=== PATIENT | male | born 1950 | race Caucasian/White ===

== ENCOUNTER 2018-12-29 13:42 | Emergency (ER) | payer MEDICARE, SELFPAY ==
[2018-12-29 13:43] VITALS: BP 132/90; PULSE 79; RESP 16; TEMP 36.9; O2SAT 99; BMI 27.1
--- NOTE | 2018-12-29 14:42 | ED.VIS.GEN ---
History of Present Illness Chief Complaint: Abscess Informant: Patient Onset: Days Context: Gradual Onset Narrative: Patient is a 69-jiue-[age]-year-old male with history of asthma, emphysema and COPD presenting with pain and swelling of his right neck. Patient states 10 months ago he had a small swelling that was painless on the right lateral neck. He was evaluated by his PCP who sent to dermatology. Dermatology did not worry about it. The past few days it began to worsen and become more painful. He notices redness over it. He stuck a needle in it last night and did have some pus come out. He states it was not much so. Patient denies any associated fever, chills, difficulty swallowing or breathing. He denies any other complaints at this time. He is worried that it would spread or get worse again in the emergency room. He denies any other complaints at this time. Past Medical History - Allergies and Home Meds Allergies/Adverse Reactions: Allergies ether Adverse Reaction (Verified 12/29/18 13:43) Nausea Primary Care Physician: NOT,DEFINED [NON-STAFF] - Past Medical History: - - Emphysema, COPD Surgical History: noncontributory Review of Systems General: Denies: Chills, Fever, Sweats Eyes: Denies: Visual changes - bilaterally, Diplopia ENT: Denies: Rhinorrhea, Sore throat Cardiovascular: Denies: Chest pain, Palpitations Respiratory: Denies: Dyspnea, Cough, Dyspnea on exertion Gastrointestinal: Denies: Abdominal pain, Nausea, Vomiting, Diarrhea, Melena, Hematochezia Genitourinary: Denies: Dysuria, Hematuria, Frequency Musculoskeletal: Reports: Neck pain - Right lateral. Denies: Back pain, Extremity Pain Skin: Reports: Abscess - Right lateral neck. Denies: Rash, Wounds Neurological: Denies: Headache, Weakness, Numbness Physical Exam Vital Signs/Narrative: Vital Signs Temp Pulse Resp BP Pulse Ox 12/29/18 13:43 98.5 F 79 16 132/90 H 99 Inital Vital Signs reviewed: Yes General: Well nourished, Well developed, No Acute Distress Head: Normocephalic, Atraumatic Eyes: Perrl, EOMI ENT: Moist mucous membranes, No rhinorrhea Neck: Supple, No lymphadenopathy, No JVD, - - Swelling and tenderness palpation over right lateral neck with overlying erythema and fluctuance, no crepitus Cardiovascular: Regular rate, Regular rhythm, No murmurs Respiratory: No distress, CTA bilaterally, Chest nontender Abdomen: Soft, Nontender, Nondistended, Normal bowel sounds Back: Nontender, Normal Inspection Extremities: Nontender, No edema Skin: - - 4 cm x 3 cm raised area of fluctuance with overlying erythema. There is no overlying scab from the patient apparently picked at it. It is quite tender to palpation. Well-demarcated edges. Neurological: Alert, Oriented x3, Cranial nerves II-XII grossly intact, Normal Strength, Normal Sensation Psychological: Normal affect, Normal Mood Diagnostic/Tx/Re-eval - Medical Decision Making Patient evaluated for pain and swelling over his right neck. Is consistent with an abscess versus infected sebaceous cyst. He does have overlying erythema and warmth. He will be started on antibiotics for this, Keflex. Incision and drainage performed. See procedure note. Patient does not have any other symptoms otherwise well-appearing. He is a good candidate for outpatient follow-up. Patient is counseled on signs and symptoms requiring return to the emergency room. Patient verbalizes agreement and understand this plan. Patient discharged home in stable and improved condition. Procedures Procedure(s): Drainage. Area anesthetized with 2 cc of 1% lidocaine without epinephrine. After adequate analgesia is achieved a #11 blade is used to make a 2 cm linear incision. Thick white substance as well as purulent substance is expressed. Hemostats used to open up any potential loculations. Area cleansed with saline and Hibiclens. Wound was left open with a pressure dressing on place. No immediate complications. Patient tolerated procedure well. ED Disposition - Plan for ED Patient: Disposition: Home or Assisted Living Diagnosis: Infected sebaceous cyst Instructions: SEBACEOUS CYST, Infected (I and D) Prescriptions: Cephalexin [Keflex] 500 mg PO Q6 #40 cap Prescription Printed Referrals: NOT,DEFINED [NON-STAFF] - Additional Instructions: Please follow-up with your cashier ticket selling or primary care doctor within the next few days for wound check. Apply warm compresses multiple times a day to encourage continued drainage. Return with any worsening symptoms such as fever, worsening redness or pain. You can alternate Tylenol and ibuprofen as needed for pain.
[2018-12-29] MEDS: Cephalexin 500 MG Capsule PO (15:02)
[2018-12-29 16:13] VITALS: RESP 18
== END 2018-12-29 16:15 | disposition home or self-care (01) ==
PROVIDERS: Emergency Provider Emergency Medicine
DX: L72.3 Sebaceous cyst (principal); L08.9 Local infection of the skin and subcutaneous tissue, unspecified; J43.9 Emphysema, unspecified
CPT/HCPCS: 10060; 99282

== ENCOUNTER 2019-07-23 16:50 | Inpatient (IN) | payer MEDICARE, MEDICAID, SELFPAY ==
[2019-07-23] VITALS (8 sets, daily range): BP systolic 110–167; BP diastolic 74–98; PULSE 78–95; RESP 15–20; TEMP 36.8–37.4; O2SAT 96–99; BMI 27.0; BMI 26.9
--- NOTE | 2019-07-23 17:24 | EKG12_ITS ---
Test Reason : Blood Pressure : / mmHG Vent. Rate : 083 BPM Atrial Rate : 083 BPM P-R Int : 138 ms QRS Dur : 076 ms QT Int : 368 ms P-R-T Axes : 043 039 048 degrees QTc Int : 432 ms Normal sinus rhythm Normal ECG Confirmed by MCKENNA ONTIVEROS, MAIKEL ([id number]), medical transcription editor DUC MÉNDEZ ([id number]) on 07/28/2019 1:56:18 PM Referred By: MATTHEW Confirmed By:JAMES ANDRES MD
--- NOTE | 2019-07-23 17:24 | RAD_ITS ---
STUDY: X-RAY CHEST REASON FOR EXAM: Male, 68 years old. PT STARTED CHEMO 2 WEEKS AGO FOR LUNG CA. 3 DAY TREATMENT. FEELING WEAK. YESTERDAY HAD CHILLS, NIGHT SWEATS AND DARK URINE TECHNIQUE: Single frontal view of the chest. COMPARISON: None. FINDINGS: There is a 5.1 x 3.2 cm round opacity within the right perihilar region. There is a left-sided Mediport in place terminating within the expected region of the superior vena cava. Normal size heart. Normal mediastinum and vitaliy. Normal visualized pulmonary arteries. Normal visualized aortic arch and descending thoracic aorta. Normal visualized thoracic spine. Normal visualized ribs, clavicles, and shoulders. There is no demonstrated abnormality of the visualized soft tissue structures of the upper abdomen. RAD/Chest 1 View (Portable) IMPRESSION: 5.1 x 3.2 cm rounded opacity within the right hilar region concerning for an underlying malignancy. Electronically Signed: Nellie Noguera MD at 19:18 EDT Tel , Service support ,
--- NOTE | 2019-07-23 17:31 | ED.DCSUM_ITS ---
- ER Visit Summary Date of Service: 07/23/19 Chief Complaint: Sick History of Present Illness: The patient is a 68 M with lung cancer that is treated by Dr. Larry Warren at [facility], [place]. He has had 3 chemotherapy treatments starting 2 weeks ago. He presents today with generalized fatigue, chills, sweats, cough, shortness of breath. Physical Examination: Afebrile and vital signs unremarkable. Alert and oriented. HEENT exam unremarkable. Heart regular. Lungs clear. Abdomen soft. Extremities nontender no edema. Skin appears normal. Test Results: EKG, labs, cultures, chest x-ray, COVID testing is pending Emergency Department Course and Treatment: Patient had COVID precautions. Placed on a monitor. Treated with IV fluids while awaiting results. EKG showed sinus rhythm at a rate of 83. Chest x-ray showed right hilar opacity concerning for malignancy consistent with his known cancer. He is neutropenic. Hemoglobin 12.1. Metabolic panel noted and unremarkable. Coags and liver panel unremarkable. Troponin normal. Lactate normal. COVID 19 testing is negative. Cultures pending. Urinalysis is still pending at the time of this dictation. Patient had neutropenia and was started on antibiotics. Given the patient's neutropenia and severe symptoms, fatigue, chills, I believe he should have inpatient therapy with IV antibiotics at this point. I will contact the hospitalist. Treatment Plan: As above Disposition: Admission Impression: Neutropenia, lung cancer, generalized fatigue This note was generated with [employer] dictation software. It may contain incorrect words, spelling, and punctuation that were not noted in review of the chart prior to signing ED Disposition - Plan for ED Patient: Referrals: [facility] Doctor,Out of [NON-STAFF] -
[2019-07-23 18:18] LABS: Absolute Lymphocyte Count 0.36 X10^3/uL (0.83-4.51); Absolute Neutrophil Count 0.1 X10^3/uL (2.0-7.7); Eosinophil# 0.03 X10^3/uL; Eosinophils% 4.1 % (0-5); Hematocrit 38.3 % (40-54); Hemoglobin 12.1 g/dL (13.0-16.5); Lymphocyte # 0.36 X10^3/ul (4.0); Lymphocyte % 49.3 % (19-41); Mean Corp Hgb Conc 31.6 g/dL (32-36); Mean Corpuscular Hgb 24.7 pg (27.0-32.0); Mean Corpuscular Volume 78.2 fL (80-94); Mean Platelet Vol. 11.3 fl (6.2-12.0); Monocyte# 0.25 X10^3/uL; Monocyte% 34.2 % (0-10); NRBC Flagged by Analyzer 0 % (0-5); Neutrophil # 0.08 X10^3/uL (2.7-7.7); POSITIVE COUNT YES; POSITIVE DIFFERENTIAL YES; POSITIVE MORPHOLOGY YES; Platelet Count 160 K/mm3 (150-450); RBC Distribution Width CV 14.6 % (11.6-14.6); RBC Distribution Width SD 39.7 fl (35.1-43.9)
[2019-07-23 18:23] LABS: Differential Indicated SCAN CRITERIA MET; White Blood Count 0.7 K/mm3 (4.4-11.0)
[2019-07-23 18:32] LABS: International Normalized Ratio 1.1; Partial Thromboplast Time 29.9 Seconds (24.1-36.2); Prothrombin Time (Protime)PT. 14.1 SECONDS (11.7-14.9)
[2019-07-23 18:43] LABS: ALB/GLOB Ratio 0.7 RATIO (0.9-2.4); AST(SGOT) 25 U/L (15-37); Alanine Aminotransfer ALT/SGPT 37 U/L (16-61); Alkaline Phosphatase 61 U/L (45-117); Anion Gap 10 (5-15); BUN 19 mg/dL (7-18); Calcium,Total 8.5 mg/dL (8.5-10.1); Chloride 97 mmol/L (98-107); Creatinine, Serum 1.19 mg/dL (0.70-1.30); EST Glomerular Filtration Rate 65 mL/min (>60); Est Glom Filt Rate - Afr Amer 79 mL/min (>60); Estimated Creatinine Clearance 61.06 ml/min; Globulin 4.3 g/dL (2.2-4.2); Glucose 146 mg/dL (74-106); Lactic Acid 0.9 mmol/L (0.4-1.9); Potassium 3.3 mmol/L (3.5-5.1); Protein, Total 7.3 g/dL (6.4-8.2); Sodium Level 133 mmol/L (136-145)
[2019-07-23 19:06] LABS: Platelet Estimate ADEQUATE (ADEQ); Red Cell Morphology NORM C+C NORMAL (NORM C&C)
--- NOTE | 2019-07-23 20:30 | HP.PCM_ITS ---
Problem List (1) Neutropenia Status: Acute History of Present Illness Date of Admission: 07/23/19 Chief Complaint: sore throat The patient is a 68 year old M with a significant history of COPD; and perihilar lung cancer who had 3 rounds of chemo therapy about 2 weeks ago presenting with sore throat. Associated with his symptoms is malaise; diaphoresis; headache; dark orange urine; chills and rigors. Further he had anorexia and dysgeusia. He denies any shortness of breath. He associates his sore throat with using Flonase and not flushing his sinuses. He did not check his temperature at home. However he thinks that that he had a fever because he was sweating. At emergency department he was found to have severe neutropenia. Past Medical History Medical History: Medical History (Last Reviewed 07/24/19 @ 01:[address] Jerrell Chen MD) Asthma J45.909 COPD (chronic obstructive pulmonary disease) J44.9 Allergies ether Adverse Reaction (Verified 07/23/19 16:55) Nausea Home Medications: Ambulatory Orders Medication Instructions Recorded Albuterol Sulfate [Albuterol 1 - 2 puff IH Q4H PRN PRN 07/23/19 Sulfate HFA] Budesonide/Formoterol Fumarate 1 puff IH DAILY 07/23/19 [Symbicort 80-4.5 Mcg Inhaler] Escitalopram Oxalate [Lexapro] 10 mg PO DAILY 07/23/19 Fluticasone 0.05% [Flonase Nasal 2 spray NASAL DAILY PRN PRN 07/23/19 [place]] Hydrochlorothiazide [Hctz] 25 mg PO DAILY 07/23/19 Loratadine 10 mg PO DAILY 07/23/19 Montelukast Sodium [Singulair] 10 mg PO DAILY 07/23/19 Naproxen Sodium [Aleve] 440 mg PO DAILY PRN PRN 07/23/19 [place]-3/Dha/Epa/Fish Oil [Cvs Fish 1 ea PO DAILY 07/23/19 Oil 1,000 mg Softgel] Potassium Chloride [Klor-Con M10] 10 meq PO DAILY 07/23/19 Tiotropium [place] [Spiriva 1 puff IH DAILY 07/23/19 Respimat] Surgical History: - - Port placement; lung biopsy Lives: Alone Smoking Status: Former smoker Tobacco Use: Cigarettes - *Family History Maternal History Items: Renal Disease Paternal History Items: Heart Disease Review of Systems Constitutional: Reports: Chills. Denies: Fever, Weight Change HEENT: Reports: Head Aches, Sore Throat Cardiovascular: Denies: Chest Pain, Palpitations Respiratory: Denies: Cough, Shortness of breath at rest, Sputum production Gastrointestinal: Reports: Nausea. Denies: Abdominal Pain, Vomiting Genitourinary: Reports: Frequency - Decreased urinary frequency. Denies: Dysuria Musculoskeletal: Denies: Joint Pain, Joint Tenderness Skin: Denies: Rash, Wounds Neurological: Denies: Numbness, Tingling, Focal weakness Psychiatric: Denies: Anxiety, Depression, Homicidal Ideations, Suicidal Ideations Hematologic/ Lymphatic: Denies: Easy Bruising, Easy Bleeding VTE Information - Inpt Only VTE Present on Admission: No VTE Mechan Device Prophylaxis: None VTE Pharm Prophylaxis ordered?: Yes Patient Problems: Active and Suspected Problems (Last Reviewed 07/24/19 @ 01:[address] Jerrell Chen MD) Neutropenia (Acute) - Physical Exam Vitals/I&O's: Vital Signs Temp Pulse Resp BP Pulse Ox 98.8 F 82 18 142/86 H 96 07/23/19 19:35 07/23/19 19:35 07/23/19 19:35 07/23/19 19:35 07/23/19 19:35 Oxygen Delivery Method Room Air Weight: 83.007 kg Body Mass Index (BMI) 27.0 Intake and Output for Last 24 Hours 07/21/19 07/22/19 07/23/19 23:59 23:59 23:59 Intake Total 600 / 600 Balance 600 / 600 General: Alert, Oriented x3, Cooperative HEENT: Atraumatic, PERRLA, EOMI, Normocephalic Neck: Supple, No JVD, Negative Carotid Bruits Lungs: Clear to auscultation, Normal air movement, - - Port-A-Cath in left upper chest Cardiovascular: Regular rate, Normal S1, Normal S2, No murmurs Abdomen: Bowel Sounds Present, Soft, Non Tender Extremities: No edema, Capillary Refill Less than 3 Seconds Skin: No rashes, No breakdown Musculoskeletal: No Tenderness to Palpation of Joints or Extremities Neurological: Cranial nerves II-XII grossly intact Psych/Mental Status: Normal Affect, Appropriate Laboratory Results 07/23/19 18:00: COVID-19 (CATHY) Not Detected 07/23/19 18:06: WBC 0.7 L*, RBC 4.90, Hgb 12.1 L, Hct 38.3 L, MCV 78.2 L, MCH 24.7 L, MCHC 31.6 L, RDW Std Deviation 39.7, RDW Coeff of [place] 14.6, Plt Count 160, MPV 11.3, Immature Gran % (Auto) 1.400 H, Neut % (Auto) 11.0 L, Lymph % (Auto) 49.3 H, [place] % (Auto) 34.2 H, Eos % (Auto) 4.1, Baso % (Auto) 0.0, Absolute Neuts (auto) 0.1 L, Absolute Lymphs (auto) 0.36 L, Nucleated RBC % 0, Differential Comment , Diff Path Review June, Platelet Estimate ADEQUATE, RBC Morphology NORM C+C 07/23/19 18:06: PT 14.1, INR 1.1, APTT 29.9 07/23/19 18:06: Sodium 133 L, Potassium 3.3 L, Chloride 97 L, Carbon Dioxide 26.0, Anion Gap 10, BUN 19 H, Creatinine 1.19, Estim Creat Clear Calc 61.06, Est GFR (MDRD) Af Amer 79, Est GFR (MDRD) Non-Af 65, BUN/Creatinine Ratio 16.0, Glucose 146 H, Calcium 8.5, Total Bilirubin 0.70, AST 25, ALT 37, Alkaline Phosphatase 61, Troponin I < 0.015, Total Protein 7.3, Albumin 3.0 L, Globulin 4.3 H, Albumin/Globulin Ratio 0.7 L 07/23/19 18:06: Lactic Acid 0.9 Current Medications Vancomycin HCl 1,250 mg/ (Sodium Chloride) 275 mls @ 167 mls/hr IV X1 ONE Stop: 07/23/19 21:08 Last Admin: 07/23/19 20:29 Dose: 167 mls/hr Documented by: Assessment/Plan All Active Problems (Last Reviewed 07/24/19 @ 01:[address] Jerrell Chen MD) Neutropenia (Acute) The patient is a 68 year old M with a significant history former tobacco abuse; perihilar lung cancer who had 3 rounds of chemo therapy about 2 weeks ago presenting with sore throat; malaise; diaphoresis; headache; dark orange urine; chills and rigors was found to have neutropenia. Neutropenia No objective fever. In the setting of cancer diagnosis on chemotherapy patient was given vancomycin and Zosyn at emergency department. Actual chest x-ray independent review does not any infiltrates. Noted right hilar mass. Of note patient ciara-cath does not look infected and probably Zosyn alone is sufficient. However, will continue patient on vancomycin and Zosyn while we wait for blood cultures obtained at emergency department. Also urine culture was ordered at emergency department. Patient is yet to produce urine.. In setting of COVID pandemic will admit patient to COVID cohort floor and will consult mud grinder. Covid test at emergency department was negative and patient's appears to be a low risk in regards his symptoms. Respiratory pathogen panel ordered Placed on covid precautions. When off covid precautions consider neutropenic precautions. Lung Cancer Patient follows up at [facility]. Continue outpatient follow up. Hyponatremia Likely RK from lung cancer. Also this could be due to use of HCTZ. Mild. Trend Hypokalemia Review of emergency department labs shows potassium of 3.3. Replace. Trend BMP. HTN On presentation blood pressure was not within goal HCTZ continue. Trend blood pressure and adjust blood pressure medications. COPD and Asthma Stable Home inhalers continued. Claritin and montelukast continued. DVT Prophylaxis Subcutaneous Lovenox. Inpatient E&M: 61952 Init Hosp L3
[2019-07-23 23:12] LABS: Mucous, Urine 0 SEEN /hpf (<or=2+)
[2019-07-23 23:26] LABS: Glucose, Dipstick Normal (Normal); Ketone-Dipstick 5 mg/dl (Negative); Leukocyte Esterase-Dipstick Negative /ul (Negative); Nitrite-Dipstick Negative (Negative); Occult Blood-Urine 10 /ul (Negative); Protein-Dipstick 100 mg/dl (Negative); Urine Bilirubin Dipstick Negative (Negative); Urine Urobilinogen 4 mg/dl (Normal)
[2019-07-23 23:33] LABS: Color, Urine Yellow (Yellow); Urine Clarity Sl Cldy (Clear)
[2019-07-23 23:34] LABS: Bacteria 1+ /hpf (None Seen); Red Blood Cells-Urine 10-25 SEEN /hpf (0-5); Squamous Epithelial Cells - UA 0-5 SEEN /hpf (0-5); White Blood Cells 0-5 SEEN /hpf (0-5)
[2019-07-24] VITALS (12 sets, daily range): BP systolic 108–161; BP diastolic 65–74; PULSE 67–86; RESP 16–22; TEMP 36.7–37; O2SAT 95–99
--- NOTE | 2019-07-24 00:20 | PCM.RX.CS ---
Consult Pharmacy has been consulted to manage selected antiobiotic: Vancomycin Type of Consult: New start Suspected Infection: Other Prior Doses of Antibiotics Received/Current Regimen: Medications Vancomycin HCl (Vancomycin) 1,000 mg in 200 mls @ 200 mls/hr IV Q12H IVANIA Discontinued Medications Vancomycin HCl 1,250 mg/ (Sodium Chloride) 275 mls @ 167 mls/hr IV X1 ONE Stop: 07/23/19 21:08 Last Admin: 07/23/19 22:53 Dose: Infused Labs: Sodium 133 mmol/L (136-145) L 07/23/19 18:06 Potassium 3.3 mmol/L (3.5-5.1) L 07/23/19 18:06 Chloride 97 mmol/L (98-107) L 07/23/19 18:06 Carbon Dioxide 26.0 mmol/L (21.0-32.0) 07/23/19 18:06 Anion Gap 10 (5-15) 07/23/19 18:06 BUN 19 mg/dL (7-18) H 07/23/19 18:06 Creatinine 1.19 mg/dL (0.70-1.30) 07/23/19 18:06 Est GFR (MDRD) Af Amer 79 mL/min (>60) 07/23/19 18:06 Est GFR (MDRD) Non-Af 65 mL/min (>60) 07/23/19 18:06 BUN/Creatinine Ratio 16.0 RATIO (10-20) 07/23/19 18:06 Glucose 146 mg/dL (74-106) H 07/23/19 18:06 Weight used for dosin.7 kg Estimated Creatinine Clearance: 61 Goal Trough: 15-20 mcg/mL Pharmacy Plan for Drug Dosing: Pharmacy Service will continue to monitor and adjust dosing as required. Follow-Up Labs: Trough Vancomycin Labs to be done on [date and time ordered]: 07/25/19 @0800
[2019-07-24 03:44] LABS: Absolute Lymphocyte Count 0.43 X10^3/uL (0.83-4.51); Absolute Neutrophil Count 0.1 X10^3/uL (2.0-7.7); Basophil# 0.01 X10^3/uL; Basophil% 1.3 % (0-1); Eosinophil# 0.03 X10^3/uL; Eosinophils% 3.8 % (0-5); Hematocrit 34.3 % (40-54); Lymphocyte # 0.43 X10^3/ul (4.0); Lymphocyte % 54.4 % (19-41); Mean Corp Hgb Conc 32.1 g/dL (32-36); Mean Corpuscular Hgb 24.8 pg (27.0-32.0); Mean Corpuscular Volume 77.3 fL (80-94); Mean Platelet Vol. 10.5 fl (6.2-12.0); Monocyte# 0.26 X10^3/uL; Monocyte% 32.9 % (0-10); NRBC Flagged by Analyzer 0 % (0-5); Neutrophil # 0.05 X10^3/uL (2.7-7.7); Neutrophil % 6.3 % (47-70); POSITIVE COUNT YES; POSITIVE DIFFERENTIAL YES; POSITIVE MORPHOLOGY YES; Platelet Count 156 K/mm3 (150-450); RBC Distribution Width CV 14.7 % (11.6-14.6); RBC Distribution Width SD 39.5 fl (35.1-43.9); Red Blood Count 4.44 M/mm3 (4.6-6.2)
[2019-07-24 03:47] LABS: Differential Indicated SCAN CRITERIA MET; White Blood Count 0.8 K/mm3 (4.4-11.0)
[2019-07-24 03:58] LABS: Anion Gap 9 (5-15); BUN 18 mg/dL (7-18); BUN/Creat Ratio 13.8 RATIO (10-20); Calcium,Total 7.8 mg/dL (8.5-10.1); Chloride 100 mmol/L (98-107); EST Glomerular Filtration Rate 59 mL/min (>60); Est Glom Filt Rate - Afr Amer 71 mL/min (>60); Glucose 138 mg/dL (74-106); Potassium 3.9 mmol/L (3.5-5.1); Sodium Level 135 mmol/L (136-145)
[2019-07-24 04:04] LABS: Atypical Lymphocyte 1+ %; Differential Comment SCANNED
[2019-07-24] MEDS: 0.9% Saline Lock 10 ML Syringe IV (05:03)
[2019-07-24] MEDS: Budesonide Respules 0.5 MG/2 ML AMPUL.NEB. INHALATION (07:22)
[2019-07-24] MEDS: Ipratropium/Albuterol Sulfate 3 ML AMPUL.NEB INHALATION ×2 (07:22→13:20)
--- NOTE | 2019-07-24 07:23 | PCM.CONS.PUL ---
Problem List (1) Lung cancer Status: Acute Qualifiers: Laterality: right Lung location: hilum of lung Qualified Code(s): C34.01 - Malignant neoplasm of right main bronchus (2) COPD (chronic obstructive pulmonary disease) Status: Chronic Qualifiers: COPD type: emphysema Emphysema type: centrilobular Qualified Code(s): J43.2 - Centrilobular emphysema (3) Asthma Status: Chronic Qualifiers: Asthma severity: moderate Asthma persistence: persistent Asthma complication type: uncomplicated Qualified Code(s): J45.40 - Moderate persistent asthma, uncomplicated (4) Seasonal allergic rhinitis Status: Chronic Qualifiers: Allergic rhinitis trigger: pollen Qualified Code(s): J30.1 - Allergic rhinitis due to pollen (5) Neutropenia Status: Acute Qualifiers: Neutropenia type: secondary to cancer chemotherapy Qualified Code(s): D70.1 - Agranulocytosis secondary to cancer chemotherapy; T45.1X5A - Adverse effect of antineoplastic and immunosuppressive drugs, initial encounter Reason for Consult Date of Consultation: 07/24/19 Reason for Consultation: COPD History of Present Illness: The patient is a 68 year old M, with past medical history listed below, who presented [facility] on 07/23/2019 secondary to generalized fatigue, chills, sweats, cough and shortness of breath. Patient reportedly has a lifetime history of asthma and COPD for 10 years that was recently diagnosed with right hilar lung cancer. Patient states he had chemotherapy 2 weeks ago and is supposed to have another bout of chemotherapy next week. Patient lives in [place], but had lived in [place] for 20 years, so is currently receiving therapy at [facility]. In the ER, patient was noted to be in sinus rhythm at 83 bpm and chest x-ray showed a right hilar opacity without associated infiltrate. Patient was neutropenic, but metabolic panel, coags and liver panel were unremarkable. Lactate was within normal limits. Patient reportedly had a negative COVID-19 test. Urinalysis was unremarkable, but given patient's reported fever and neutropenia, patient was admitted to the hospital for empiric antibiotics. Patient is currently in COVID precautions, but states that he has not been out of the house outside of going to the grocery store. Patient lives alone. Patient has had some malaise, diaphoresis, darker urine, chills and rigors. Patient has reported worsening sore throat that he believes is secondary to his Flonase. Patient has been told for the last 10 years that he has COPD and is currently on triple therapy. Patient is unaware of the type of lung cancer or the severity of his COPD. Patient states this is his first round of chemotherapy, so I do not know what to expect. Patient does not report any COVID exposures. Patient has been using a facemask when going to the grocery store. Patient does not believe his cough is significantly changed from its baseline and he continues to produce intermittent clear to white sputum. Patient denies any chest pain, hemoptysis or lower extremity edema. No rashes of been reported. Review of systems otherwise negative from a constitutional, HEENT, respiratory, cardiovascular, GI, genitourinary, musculoskeletal, skin, neurologic, psychiatric and hematologic system unless stated above. Past Medical History Past Medical History (Chronic Problems): Chronic Problems (Last Reviewed 07/24/19 @ 01:[address] Jerrell Chen MD) COPD (chronic obstructive pulmonary disease) (Chronic) Asthma (Chronic) Seasonal allergic rhinitis (Chronic) Medical History: Medical History (Last Reviewed 07/24/19 @ 01:[address] Jerrell Chen MD) Asthma J45.909 COPD (chronic obstructive pulmonary disease) J44.9 Allergies ether Adverse Reaction (Verified 07/23/19 16:55) Nausea Home Medications: Ambulatory Orders Medication Instructions Recorded Albuterol Sulfate [Albuterol 1 - 2 puff IH Q4H PRN PRN 07/23/19 Sulfate HFA] Budesonide/Formoterol Fumarate 1 puff IH DAILY 07/23/19 [Symbicort 80-4.5 Mcg Inhaler] Escitalopram Oxalate [Lexapro] 10 mg PO DAILY 07/23/19 Fluticasone 0.05% [Flonase Nasal 2 spray NASAL DAILY PRN PRN 07/23/19 [place]] Hydrochlorothiazide [Hctz] 25 mg PO DAILY 07/23/19 Loratadine 10 mg PO DAILY 07/23/19 Montelukast Sodium [Singulair] 10 mg PO DAILY 07/23/19 Naproxen Sodium [Aleve] 440 mg PO DAILY PRN PRN 07/23/19 [place]-3/Dha/Epa/Fish Oil [Cvs Fish 1 ea PO DAILY 06/10/20 Oil 1,000 mg Softgel] Potassium Chloride [Klor-Con M10] 10 meq PO DAILY 07/23/19 Tiotropium [place] [Spiriva 1 puff IH DAILY 07/23/19 Respimat] Surgical History: - - Port placement; lung biopsy Lives: Alone Smoking Status: Former smoker Tobacco Use: Cigarettes - *Family History Maternal History Items: Renal Disease Paternal History Items: Heart Disease Review of Systems Comment: See HPI Patient Problems: Active and Suspected Problems (Last Reviewed 07/24/19 @ 01:[address] Jerrell Chen MD) Neutropenia (Acute) Lung cancer (Acute) Objective: Chest x-ray was personally reviewed. This does show a right hilar mass, but no associated infiltrates. No pulmonary function test or echocardiograms are available for review. - Physical Exam Vitals/I&O's: Vital Signs Temp Pulse Resp BP Pulse Ox 36.9 C 74 18 161/71 H 99 07/24/19 03:35 07/24/19 03:35 07/24/19 03:35 07/24/19 03:35 07/24/19 03:35 Oxygen Delivery Method Room Air Weight: 82.7 kg Body Mass Index (BMI) 26.9 Intake and Output for Last 24 Hours 07/22/19 07/23/19 07/24/19 23:59 23:59 23:59 Intake Total 1250 / 1250 650 / 650 Output Total 200 / 200 Balance 1050 / 1050 650 / 650 General: Alert, Oriented x3, Cooperative, No apparent distress, Well developed, Well nourished, - - Speaking in full sentences. HEENT: Atraumatic, PERRLA, EOMI, Normocephalic, - - No scleral icterus or injection noted Oral: Moist Mucosa, No Gingival or Mucosal Lesions/ Ulcerations Neck: Supple, No JVD, No Nodes, Trachea Midline Lungs: No rhonchi, No wheeze, No rales, Diminished, - - Symmetric expansion. No dullness to percussion. Cardiovascular: Regular rate, Regular Rhythm, Normal S1, Normal S2, No murmurs, No rub noted, No Gallop Abdomen: Bowel Sounds Present, Soft, Non Tender, Non-Distended Extremities: No clubbing, No cyanosis, No edema, Capillary Refill Less than 3 Seconds Skin: No rashes, No breakdown Musculoskeletal: No Tenderness to Palpation of Joints or Extremities Lymphatic: No Cervical, Supraclavicular, or Inguinal Adenopathy Neurological: Cranial nerves II-XII grossly intact, Neuro grossly intact, Motor Exam 5/5 strength throughout Psych/Mental Status: Alert and oriented to time, place, person, mood and affect Microbiology Past 72 Hours 07/24/19 02:20 Mucosa - Nasopharyngeal Respiratory Panel (PCR) - Final Laboratory Results 07/23/19 18:00: COVID-19 (CATHY) Not Detected 07/23/19 18:06: WBC 0.7 L*, RBC 4.90, Hgb 12.1 L, Hct 38.3 L, MCV 78.2 L, MCH 24.7 L, MCHC 31.6 L, RDW Std Deviation 39.7, RDW Coeff of Hebert 14.6, Plt Count 160, MPV 11.3, Immature Gran % (Auto) 1.400 H, Neut % (Auto) 11.0 L, Lymph % (Auto) 49.3 H, [place] % (Auto) 34.2 H, Eos % (Auto) 4.1, Baso % (Auto) 0.0, Absolute Neuts (auto) 0.1 L, Absolute Lymphs (auto) 0.36 L, Nucleated RBC % 0, Differential Comment , Diff Path Review June, Platelet Estimate ADEQUATE, RBC Morphology NORM C+C 07/23/19 18:06: PT 14.1, INR 1.1, APTT 29.9 07/23/19 18:06: Sodium 133 L, Potassium 3.3 L, Chloride 97 L, Carbon Dioxide 26.0, Anion Gap 10, BUN 19 H, Creatinine 1.19, Estim Creat Clear Calc 61.06, Est GFR (MDRD) Af Amer 79, Est GFR (MDRD) Non-Af 65, BUN/Creatinine Ratio 16.0, Glucose 146 H, Calcium 8.5, Total Bilirubin 0.70, AST 25, ALT 37, Alkaline Phosphatase 61, Troponin I < 0.015, Total Protein 7.3, Albumin 3.0 L, Globulin 4.3 H, Albumin/Globulin Ratio 0.7 L 07/23/19 18:06: Lactic Acid 0.9 07/23/19 22:57: Urine Color Yellow, Urine Clarity Sl Cldy, Urine pH 5.0, Ur Specific [place] 1.020, Urine Protein 100 H, Urine Glucose (UA) Normal, Urine Ketones 5 H, Urine Occult Blood 10 H, Urine Nitrite Negative, Urine Bilirubin Negative, Urine Urobilinogen 4 H, Ur Leukocyte Esterase Negative, Urine RBC 10-25 SEEN, Urine WBC 0-5 SEEN, Ur Squamous Epith Cells 0-5 SEEN, Urine Bacteria 1+, Urine Mucus 0 SEEN 07/24/19 03:30: Sodium 135 L, Potassium 3.9, Chloride 100, Carbon Dioxide 26.0, Anion Gap 9, BUN 18, Creatinine 1.30, Estim Creat Clear Calc 55.90, Est GFR (MDRD) Af Amer 71, Est GFR (MDRD) Non-Af 59 L, BUN/Creatinine Ratio 13.8, Glucose 138 H, Calcium 7.8 L 07/24/19 03:30: WBC 0.8 L*, RBC 4.44 L, Hgb 11.0 L, Hct 34.3 L, MCV 77.3 L, MCH 24.8 L, MCHC 32.1, RDW Std Deviation 39.5, RDW Coeff of Hebert 14.7 H, Plt Count 156, MPV 10.5, Immature Gran % (Auto) 1.300 H, Neut % (Auto) 6.3 L, Lymph % (Auto) 54.4 H, [place] % (Auto) 32.9 H, Eos % (Auto) 3.8, Baso % (Auto) 1.3 H, Absolute Neuts (auto) 0.1 L, Absolute Lymphs (auto) 0.43 L, Nucleated RBC % 0, Differential Comment SCANNED, Diff Path Review June foll, Atypical Lymphocytes 1+ Current Medications Acetaminophen (Tylenol) 650 mg PO Q6H PRN PRN PRN Reason: Pain Score 1-10/Temp > 100.7 F Albuterol Sulfate (Ventolin Aerosols) 2.5 mg INHALATION Q2H PRN PRN PRN Reason: SOB &/OR WHEEZING Albuterol/Ipratropium (Duoneb) 3 ml INHALATION Q6HWA.RT IVANIA Last Admin: 07/24/19 07:22 Dose: 3 ml Documented by: Budesonide (Pulmicort Aerosol) 0.5 mg INHALATION Q12H.RT IVANIA Last Admin: 07/24/19 07:22 Dose: 0.5 mg Documented by: Dextrose (D50w Syringe) 0 gm IV X1 PRN; Protocol PRN Reason: Hypoglycemia Enoxaparin Sodium (Lovenox) 40 mg SC DAILY IVANIA Escitalopram Oxalate (Lexapro) 10 mg PO DAILY IVAN[facility] Fluticasone Propionate (Flonase Nasal [place]) 2 spray NASAL DAILY PRN PRN PRN Reason: ALLERGIES Glucagon () 1 mg IM .X1 PRN PRN Reason: Hypoglycemia Hydrochlorothiazide (Hctz) 25 mg PO DAILY IVANIA Vancomycin IV Pharmacy to Dose (1 ea/ Sodium Chloride) 500 mls @ 250 mls/hr IV PRN PRN; Protocol PRN Reason: Rx to Dose Sodium Chloride () 250 mls @ 15 mls/hr IV .[id number] PRN PRN Reason: Saline Flush Last Infusion: 07/24/19 05:02 Dose: 0 mls/hr Documented by: Sodium Chloride () 250 mls @ 15 mls/hr IV .[id number] PRN PRN Reason: Additional IVPB Infusion Piperacillin Sod/Tazobactam (Sod 3.375 gm/ Sodium Chloride) 50 mls @ 12.5 mls/hr IV Q8 IVANIA Last Admin: 07/24/19 05:02 Dose: 12.5 mls/hr Documented by: Vancomycin HCl (Vancomycin) 1,000 mg in 200 mls @ 200 mls/hr IV Q12H IVAN[facility] Loratadine (Claritin) 10 mg PO DAILY IVAN[facility] Montelukast Sodium (Singulair) 10 mg PO DAILY IVAN[facility] Naproxen (Naprosyn) 500 mg PO DAILY PRN PRN PRN Reason: Pain (1-10) or Fever Zwhad-2-Ddrz Ethyl Esters (Lovaza) 1 gm PO DAILY IVANIA Ondansetron HCl (Zofran) 4 mg IV Q8H PRN PRN PRN Reason: NAUSEA/VOMITING Potassium Chloride (K-Dur) 10 meq PO DAILYCM IVANIA Sodium Chloride () 10 - 40 ml IV UD PRN PRN Reason: SALINE FLUSH Last Admin: 07/24/19 05:03 Dose: 20 ml Documented by: Clinical Impression(s) from Imaging Studies Chest X-Ray 07/23/19 17:24 IMPRESSION: 5.1 x 3.2 cm rounded opacity within the right hilar region concerning for an underlying malignancy. Electronically Signed: Nellie Noguera MD at 19:18 EDT Tel , Service support , Assessment/Plan All Active Problems (Last Reviewed 07/24/19 @ 01:[address] Jerrell Chen MD) Neutropenia (Acute) Lung cancer (Acute) RECOMMENDATIONS: 1. Continue empiric antibiotics pending culture data 2. Continue therapeutic substitution for home inhaler therapy. No indication for systemic steroids 3. Consider symptomatic therapy with Magic mouthwash for esophagitis 4. Consider discontinuation of COVID precautions 5. Attempt to obtain records from [facility] IMPRESSIONS: 1. Neutropenia secondary to chemotherapy Patient is not very informed about his current malignancy. Unclear what chemotherapy he has received, but he is 2 weeks out and this is likely secondary to this chemotherapy. Patient's COVID test was negative and does not report any risk factors. COVID precautions can likely be discontinued. Magic mouthwash may be helpful for symptomatic therapy of sore throat. 2. Lung cancer/COPD/asthma Patient does not appear to be in an acute exacerbation at this time. Patient has received a therapeutic substitution. Okay to continue with Claritin and montelukast. Patient does not appear to need any systemic steroids from my perspective. Would be helpful to obtain records from [facility] for confirmation of underlying disease process. Patient may have an element of paraneoplastic SIADH, but this cannot be confirmed at this time. 3. Hyponatremia/hypokalemia/hypertension/poor informant Complicates care, management, recovery and prognosis. Supplementation as indicated. Okay to continue with baseline medications from my perspective. Inpatient E&M: 16246 Init Hosp L3
[2019-07-24] MEDS: Omega-3 Acid Ethyl Esters 1 GM Capsule PO (09:25)
[2019-07-24] MEDS: Enoxaparin 40 MG/0.4 ML Syringe SC (09:25)
[2019-07-24] MEDS: hydroCHLOROthiazide 25 MG Tablet PO (09:25)
[2019-07-24] MEDS: Escitalopram Oxalate 10 MG Tablet PO (09:25)
[2019-07-24] MEDS: Loratadine 10 MG Tablet PO (09:25)
[2019-07-24] MEDS: Montelukast 10 MG Tablet PO (09:25)
[2019-07-24 09:48] LABS: Pathologist Review Reviewed
[2019-07-24 09:49] LABS: Pathologist Review Reviewed
--- NOTE | 2019-07-24 11:04 | CASEMGMT ---
Addendum entered by Martinez Nieves 07/24/19 13:19: Pt out of COVID isolation, standard precautions used to speak with pt in room. Intro role of CM to patient. He states he lives alone, single, no children. Brother is LNOK. States he is going through cancer treatment @ [facility]. PCP and Oncologist are both @ [facility]. States he drives himself to treatments and has been tolerating this so far. Pt did discuss that his oncologist is trying to shrink the tumor, but then wants to remove it and part of my lung. Pt states he feels this is too invasive and he may decide to not have surgical intervention just to live another year. RN CM discussed with him that open communication with his physicians for options is important, but decisions on treatment is for him to decide. Pt is very calm with conversation and seems very pragmatic in his cancer treatment. -denies homegoing needs. States he does not have ambulatory DME at home and is independent in ADL. Does his own shopping, cleaning, meals. DC PLAN: home. no concerns per pt and no new needs identified. Enio DURAN Original Note: RN CM Assessment Note Attempted numerous times to call to room and cell phone. Chart reviewed and CM will continue to follow for any dc needs. Presentation: malaise, diaphoresis, headache Diagnosis: Neutropenia, history of cancer, current with chemotherapy, COPD PCP: Dr. Rahman Specialists: oncologist Insurance: [facility] Preferred Pharmacy: [email or web address] Prescription Benefit: yes LNOK: Brother AL Vlad Living Arrangements: Lives alone in apartment. Independent currently. Tranportation: drives DME: no ambulatory dme used. DC Plan: anticipate home on discharge. Pt is currently not on oxygen. CM available for discharge planning coordination. Contact CM for any concerns/needs that may arise. Enio FRIEDMAN
--- NOTE | 2019-07-24 11:23 | PCM.PN.HOSP ---
Patient Problems: Active and Suspected Problems (Last Reviewed 07/24/19 @ 01:[address] Jerrell Chen MD) Neutropenia (Acute) Lung cancer (Acute) Reason for Visit: neutropenia Subjective: breathing well. anxious to go home. Still with sore throat. Vitals/I&O's: Vital Signs Temp Pulse Resp BP Pulse Ox 37.0 C 85 18 152/70 H 97 07/24/19 09:26 07/24/19 09:26 07/24/19 09:26 07/24/19 09:26 07/24/19 09:26 Oxygen Delivery Method Room Air Weight: 82.7 kg Body Mass Index (BMI) 26.9 Intake and Output for Last 24 Hours 07/22/19 07/23/19 07/24/19 23:59 23:59 23:59 Intake Total 1250 / 1250 650 / 650 Output Total 200 / 200 Balance 1050 / 1050 650 / 650 General: Alert, No apparent distress HEENT: Atraumatic, Normocephalic Oral: Moist Mucosa, No Gingival or Mucosal Lesions/ Ulcerations Neck: No Nodes, Thyroid Normal Size and Texture Lungs: Clear to auscultation, Normal air movement, No rhonchi, No wheeze, No rales Cardiovascular: Regular rate, Regular Rhythm, Normal S1, Normal S2, No murmurs Abdomen: Bowel Sounds Present, Soft, Non Tender, Non-Distended, No Hepato-splenomegaly Extremities: No edema, No Calf Tenderness Skin: No rashes, No breakdown Psych/Mental Status: Normal Affect, Appropriate Microbiology Past 72 Hours 07/24/19 02:20 Mucosa - Nasopharyngeal Respiratory Panel (PCR) - Final Laboratory Results 07/23/19 18:00: COVID-19 (CATHY) Not Detected 07/23/19 18:06: WBC 0.7 L*, RBC 4.90, Hgb 12.1 L, Hct 38.3 L, MCV 78.2 L, MCH 24.7 L, MCHC 31.6 L, RDW Std Deviation 39.7, RDW Coeff of Hebert 14.6, Plt Count 160, MPV 11.3, Immature Gran % (Auto) 1.400 H, Neut % (Auto) 11.0 L, Lymph % (Auto) 49.3 H, [place] % (Auto) 34.2 H, Eos % (Auto) 4.1, Baso % (Auto) 0.0, Absolute Neuts (auto) 0.1 L, Absolute Lymphs (auto) 0.36 L, Nucleated RBC % 0, Differential Comment , Diff Path Review Reviewed, Platelet Estimate ADEQUATE, RBC Morphology NORM C+C 07/23/19 18:06: PT 14.1, INR 1.1, APTT 29.9 07/23/19 18:06: Sodium 133 L, Potassium 3.3 L, Chloride 97 L, Carbon Dioxide 26.0, Anion Gap 10, BUN 19 H, Creatinine 1.19, Estim Creat Clear Calc 61.06, Est GFR (MDRD) Af Amer 79, Est GFR (MDRD) Non-Af 65, BUN/Creatinine Ratio 16.0, Glucose 146 H, Calcium 8.5, Total Bilirubin 0.70, AST 25, ALT 37, Alkaline Phosphatase 61, Troponin I < 0.015, Total Protein 7.3, Albumin 3.0 L, Globulin 4.3 H, Albumin/Globulin Ratio 0.7 L 07/23/19 18:06: Lactic Acid 0.9 07/23/19 22:57: Urine Color Yellow, Urine Clarity Sl Cldy, Urine pH 5.0, Ur Specific [place] 1.020, Urine Protein 100 H, Urine Glucose (UA) Normal, Urine Ketones 5 H, Urine Occult Blood 10 H, Urine Nitrite Negative, Urine Bilirubin Negative, Urine Urobilinogen 4 H, Ur Leukocyte Esterase Negative, Urine RBC 10-25 SEEN, Urine WBC 0-5 SEEN, Ur Squamous Epith Cells 0-5 SEEN, Urine Bacteria 1+, Urine Mucus 0 SEEN 07/24/19 03:30: Sodium 135 L, Potassium 3.9, Chloride 100, Carbon Dioxide 26.0, Anion Gap 9, BUN 18, Creatinine 1.30, Estim Creat Clear Calc 55.90, Est GFR (MDRD) Af Amer 71, Est GFR (MDRD) Non-Af 59 L, BUN/Creatinine Ratio 13.8, Glucose 138 H, Calcium 7.8 L 07/24/19 03:30: WBC 0.8 L*, RBC 4.44 L, Hgb 11.0 L, Hct 34.3 L, MCV 77.3 L, MCH 24.8 L, MCHC 32.1, RDW Std Deviation 39.5, RDW Coeff of [place]bert 14.7 H, Plt Count 156, MPV 10.5, Immature Gran % (Auto) 1.300 H, Neut % (Auto) 6.3 L, Lymph % (Auto) 54.4 H, [place] % (Auto) 32.9 H, Eos % (Auto) 3.8, Baso % (Auto) 1.3 H, Absolute Neuts (auto) 0.1 L, Absolute Lymphs (auto) 0.43 L, Nucleated RBC % 0, Differential Comment SCANNED, Diff Path Review Reviewed, Atypical Lymphocytes 1+ Current Medications Acetaminophen (Tylenol) 650 mg PO Q6H PRN PRN PRN Reason: Pain Score 1-10/Temp > 100.7 F Albuterol Sulfate (Ventolin Aerosols) 2.5 mg INHALATION Q2H PRN PRN PRN Reason: SOB &/OR WHEEZING Albuterol/Ipratropium (Duoneb) 3 ml INHALATION Q6HWA.RT [facility] Last Admin: 07/24/19 07:22 Dose: 3 ml Documented by: Budesonide (Pulmicort Aerosol) 0.5 mg INHALATION Q12H.RT [facility] Last Admin: 07/24/19 07:22 Dose: 0.5 mg Documented by: Dextrose (D50w Syringe) 0 gm IV X1 PRN; Protocol PRN Reason: Hypoglycemia Enoxaparin Sodium (Lovenox) 40 mg SC DAILY [facility] Last Admin: 07/24/19 09:25 Dose: 40 mg Documented by: Escitalopram Oxalate (Lexapro) 10 mg PO DAILY [facility] Last Admin: 07/24/19 09:25 Dose: 10 mg Documented by: Fluticasone Propionate (Flonase Nasal [place]) 2 spray NASAL DAILY PRN PRN PRN Reason: ALLERGIES Glucagon () 1 mg IM .X1 PRN PRN Reason: Hypoglycemia Hydrochlorothiazide (Hctz) 25 mg PO DAILY [facility] Last Admin: 07/24/19 09:25 Dose: 25 mg Documented by: Vancomycin IV Pharmacy to Dose (1 ea/ Sodium Chloride) 500 mls @ 250 mls/hr IV PRN PRN; Protocol PRN Reason: Rx to Dose Sodium Chloride () 250 mls @ 15 mls/hr IV .[id number] PRN PRN Reason: Saline Flush Last Infusion: 07/24/19 05:02 Dose: 0 mls/hr Documented by: Sodium Chloride () 250 mls @ 15 mls/hr IV .[id number] PRN PRN Reason: Additional IVPB Infusion Piperacillin Sod/Tazobactam (Sod 3.375 gm/ Sodium Chloride) 50 mls @ 12.5 mls/hr IV Q8 [facility] Last Admin: 07/24/19 05:02 Dose: 12.5 mls/hr Documented by: Vancomycin HCl (Vancomycin) 1,000 mg in 200 mls @ 200 mls/hr IV Q12H [facility] Loratadine (Claritin) 10 mg PO DAILY [facility] Last Admin: 07/24/19 09:25 Dose: 10 mg Documented by: Montelukast Sodium (Singulair) 10 mg PO DAILY [facility] Last Admin: 07/24/19 09:25 Dose: 10 mg Documented by: Naproxen (Naprosyn) 500 mg PO DAILY PRN PRN PRN Reason: Pain (1-10) or Fever Iksyo-3-Kekh Ethyl Esters (Lovaza) 1 gm PO DAILY [facility] Last Admin: 07/24/19 09:25 Dose: 1 gm Documented by: Ondansetron HCl (Zofran) 4 mg IV Q8H PRN PRN PRN Reason: NAUSEA/VOMITING Potassium Chloride (K-Dur) 10 meq PO DAILYCM [facility] Last Admin: 07/24/19 09:25 Dose: 10 meq Documented by: Sodium Chloride () 10 - 40 ml IV UD PRN PRN Reason: SALINE FLUSH Last Admin: 07/24/19 05:03 Dose: 20 ml Documented by: STROKE Vital Signs/Narrative: Vital Signs Temp Pulse Resp BP Pulse Ox 07/24/19 09:26 37.0 C 85 18 152/70 H 97 07/24/19 07:28 76 Medical Necessity - Tobacco Use Smoking Status: Former smoker Tobacco Use: Cigarettes Assessment/Plan All Active Problems (Last Reviewed 07/24/19 @ 01:[address] Jerrell Chen MD) Neutropenia (Acute) Lung cancer (Acute) 1. neutropenia likely secondary to chemotherapy continue with pip/tazo, DC vanc follow up cultures UA negative COVID-19 negative 2. lung cancer suspect NSCLC check records [facility] patient declined surgery 3. VTE prophylaxis: LMWH Inpatient E&M: 50742 Subs Hosp L2
[2019-07-24] MEDS: Vancomycin IV 1,000 MG/200 ML BAG 200 MG IV ×2 (12:52→20:45)
[2019-07-25] VITALS (10 sets, daily range): BP systolic 95–111; BP diastolic 67–81; PULSE 71–150; RESP 18–20; TEMP 36.8–37.2; O2SAT 95–98
[2019-07-25 08:16] LABS: Hematocrit 36.7 % (40-54); Hemoglobin 11.7 g/dL (13.0-16.5); Mean Corp Hgb Conc 31.9 g/dL (32-36); Mean Corpuscular Hgb 24.7 pg (27.0-32.0); Mean Corpuscular Volume 77.6 fL (80-94); Mean Platelet Vol. 10.3 fl (6.2-12.0); POSITIVE COUNT YES; POSITIVE DIFFERENTIAL YES; POSITIVE MORPHOLOGY YES; Platelet Count 257 K/mm3 (150-450); RBC Distribution Width CV 14.8 % (11.6-14.6); Red Blood Count 4.73 M/mm3 (4.6-6.2)
[2019-07-25 08:35] LABS: Differential Indicated MANUAL DIFF
--- NOTE | 2019-07-25 08:36 | PCM.PN.PUL ---
Patient Problems: Active and Suspected Problems (Last Reviewed 07/24/19 @ 01:[address] Jerrell Chen MD) Neutropenia (Acute) Lung cancer (Acute) Subjective: Patient did well overnight. No acute issues were reported. Patient continues to report significant fatigue/weakness. Cough is at its baseline. Patient is not reporting any chest pain, but is having significant throat pain. Patient did not like the Magic mouthwash. - Physical Exam Vitals/I&O's: Vital Signs Temp Pulse Resp BP Pulse Ox 36.8 C 71 18 104/77 98 07/25/19 06:32 07/25/19 06:32 07/25/19 06:32 07/25/19 06:32 07/25/19 06:32 Oxygen Delivery Method Room Air Weight: 82.7 kg Body Mass Index (BMI) 26.9 Intake and Output for Last 24 Hours 07/23/19 07/24/19 07/25/19 23:59 23:59 23:59 Intake Total 1250 / 1250 1770 / 1770 850 / 850 Output Total 200 / 200 Balance 1050 / 1050 1770 / 1770 850 / 850 General: Alert, Oriented x3, Cooperative, No apparent distress, - - Appears older than stated age. Speaking in full sentences. HEENT: Atraumatic, PERRLA, EOMI, Normocephalic, - - No scleral icterus or injection noted Oral: Moist Mucosa, No Gingival or Mucosal Lesions/ Ulcerations Neck: Supple, No JVD, No Nodes, Trachea Midline Lungs: No rhonchi, No wheeze, No rales, Diminished Cardiovascular: Regular rate, Regular Rhythm, Normal S1, Normal S2, No murmurs, No rub noted, No Gallop Abdomen: Bowel Sounds Present, Soft, Non Tender, Non-Distended Extremities: No clubbing, No cyanosis, No edema, Capillary Refill Less than 3 Seconds Skin: No rashes, No breakdown, - - Dermal atrophy noted Musculoskeletal: No Tenderness to Palpation of Joints or Extremities Lymphatic: No Cervical, Supraclavicular, or Inguinal Adenopathy Neurological: Cranial nerves II-XII grossly intact, Neuro grossly intact, Motor Exam 5/5 strength throughout Psych/Mental Status: Alert and oriented to time, place, person, mood and affect Microbiology Past 72 Hours 07/24/19 02:20 Mucosa - Nasopharyngeal Respiratory Panel (PCR) - Final Laboratory Results 07/23/19 18:06: Diff Path Review Reviewed 07/24/19 03:30: Diff Path Review Reviewed 07/25/19 08:00: Vancomycin Trough Pending 07/25/19 08:00: WBC 2.0 L, RBC 4.73, Hgb 11.7 L, Hct 36.7 L, MCV 77.6 L, MCH 24.7 L, MCHC 31.9 L, RDW Std Deviation 40.0, RDW Coeff of Hebert 14.8 H, Plt Count 257, MPV 10.3, Neut % (Auto) Not Reportable, Absolute Neuts (auto) Pending 07/25/19 08:00: Sodium Pending, Potassium Pending, Chloride Pending, Carbon Dioxide Pending, Anion Gap Pending, BUN Pending, Creatinine Pending, Est GFR (MDRD) Af Amer Pending, Est GFR (MDRD) Non-Af Pending, BUN/Creatinine Ratio Pending, Glucose Pending, Calcium Pending Current Medications Acetaminophen (Tylenol) 650 mg PO Q6H PRN PRN PRN Reason: Pain Score 1-10/Temp > 100.7 F Albuterol Sulfate (Ventolin Aerosols) 2.5 mg INHALATION Q2H PRN PRN PRN Reason: SOB &/OR WHEEZING Albuterol/Ipratropium (Duoneb) 3 ml INHALATION Q6HWA.RT [facility] Last Admin: 07/24/19 18:55 Dose: Not Given Documented by: Budesonide (Pulmicort Aerosol) 0.5 mg INHALATION Q12H.RT [facility] Last Admin: 07/24/19 18:55 Dose: Not Given Documented by: Dextrose (D50w Syringe) 0 gm IV X1 PRN; Protocol PRN Reason: Hypoglycemia Enoxaparin Sodium (Lovenox) 40 mg SC DAILY [facility] Last Admin: 07/24/19 09:25 Dose: 40 mg Documented by: Escitalopram Oxalate (Lexapro) 10 mg PO DAILY [facility] Last Admin: 07/24/19 09:25 Dose: 10 mg Documented by: Fluticasone Propionate (Flonase Nasal [place]) 2 spray NASAL DAILY PRN PRN PRN Reason: ALLERGIES Glucagon () 1 mg IM .X1 PRN PRN Reason: Hypoglycemia Hydrochlorothiazide (Hctz) 25 mg PO DAILY [facility] Last Admin: 07/24/19 09:25 Dose: 25 mg Documented by: Sodium Chloride () 250 mls @ 15 mls/hr IV .[id number] PRN PRN Reason: Saline Flush Last Infusion: 07/24/19 05:02 Dose: 0 mls/hr Documented by: Sodium Chloride () 250 mls @ 15 mls/hr IV .[id number] PRN PRN Reason: Additional IVPB Infusion Piperacillin Sod/Tazobactam (Sod 3.375 gm/ Sodium Chloride) 50 mls @ 12.5 mls/hr IV Q8 [facility] Last Admin: 07/25/19 06:19 Dose: 12.5 mls/hr Documented by: Loratadine (Claritin) 10 mg PO DAILY [facility] Last Admin: 07/24/19 09:25 Dose: 10 mg Documented by: Montelukast Sodium (Singulair) 10 mg PO DAILY [facility] Last Admin: 07/24/19 09:25 Dose: 10 mg Documented by: Naproxen (Naprosyn) 500 mg PO DAILY PRN PRN PRN Reason: Pain (1-10) or Fever Fjmze-3-[id number] Ethyl Esters (Lovaza) 1 gm PO DAILY [facility] Last Admin: 07/24/19 09:25 Dose: 1 gm Documented by: Ondansetron HCl (Zofran) 4 mg IV Q8H PRN PRN PRN Reason: NAUSEA/VOMITING Potassium Chloride (K-Dur) 10 meq PO DAILYCM [facility] Last Admin: 07/24/19 09:25 Dose: 10 meq Documented by: Sodium Chloride () 10 - 40 ml IV UD PRN PRN Reason: SALINE FLUSH Last Admin: 07/24/19 05:03 Dose: 20 ml Documented by: Medical Necessity - Tobacco Use Smoking Status: Former smoker Tobacco Use: Cigarettes Assessment/Plan All Active Problems (Last Reviewed 07/24/19 @ 01:[address] Jerrell Chen MD) Neutropenia (Acute) Lung cancer (Acute) RECOMMENDATIONS: 1. Continue empiric antibiotics pending culture data 2. Continue therapeutic substitution for home inhaler therapy. No indication for systemic steroids 3. Could consider oncology evaluation for alternatives for esophagitis 4. Follow-up with primary patient scheduling manager as an outpatient IMPRESSIONS: 1. Neutropenia secondary to chemotherapy Patient is not very informed about his current malignancy. Unclear what chemotherapy he has received, but he is 2 weeks out and this is likely secondary to this chemotherapy. Patient's COVID test was negative and does not report any risk factors. COVID precautions have been discontinued. Magic mouthwash was not well tolerated. Could consider an oncology evaluation. No fevers noted overnight. If culture negative at 48 hours, can likely be discharged. 2. Lung cancer/COPD/asthma Patient does not appear to be in an acute exacerbation at this time. Patient has received a therapeutic substitution. Okay to continue with Claritin and montelukast. Patient does not appear to need any systemic steroids from my perspective. Would be helpful to obtain records from [facility] for confirmation of underlying disease process. Patient may have an element of paraneoplastic SIADH, but this cannot be confirmed at this time. 3. Hyponatremia/hypokalemia/hypertension/poor informant Complicates care, management, recovery and prognosis. Supplementation as indicated. Okay to continue with baseline medications from my perspective. Inpatient E&M: 55903 Subs Hosp L2
[2019-07-25 08:40] LABS: Anion Gap 9 (5-15); BUN 16 mg/dL (7-18); BUN/Creat Ratio 12.1 RATIO (10-20); Calcium,Total 8.3 mg/dL (8.5-10.1); Chloride 98 mmol/L (98-107); Creatinine, Serum 1.32 mg/dL (0.70-1.30); EST Glomerular Filtration Rate 58 mL/min (>60); Est Glom Filt Rate - Afr Amer 70 mL/min (>60); Estimated Creatinine Clearance 55.05 ml/min; Glucose 146 mg/dL (74-106); Potassium 3.1 mmol/L (3.5-5.1); Sodium Level 133 mmol/L (136-145)
[2019-07-25 08:45] LABS: Blast 3 % (0-0); Eosinophil 1 % (0-5); Metamyelocyte 1 % (0-1); Monocyte 9 % (0-10); Myelocyte 1 (0-0); Neutrophil-Band 13 % (0-5); Neutrophil-Segmented 25 % (47-70); Total Cells Counted 100 (MANUAL DIFF)
[2019-07-25 08:47] LABS: Nucleated Red Bld Cells,Manual 1 % (0-5)
[2019-07-25 08:48] LABS: Atypical Lymphocyte 16 %; Lymphocyte 31 % (19-41)
[2019-07-25 08:50] LABS: Platelet Estimate ADEQUATE (ADEQ)
[2019-07-25 08:52] LABS: Platelet Morphology GIANT
[2019-07-25 08:53] LABS: Microcytosis 1+; Red Cell Morphology N CHROM NORMAL (NORM C&C); Vancomycin, Trough Level 10.4 ug/mL (5.0-15.0)
[2019-07-25 08:57] LABS: Absolute Lymphocyte Count 0.94 X10^3/uL (0.83-4.51); Absolute Neutrophil Count 0.8 X10^3/uL (2.0-7.7)
--- NOTE | 2019-07-25 09:35 | PCM.PN.HOSP ---
Patient Problems: Active and Suspected Problems (Last Reviewed 07/24/19 @ 01:[address] Jerrell Chen MD) Neutropenia (Acute) Lung cancer (Acute) Reason for Visit: neutropenia Subjective: Still with sore throat. No new events. Vitals/I&O's: Vital Signs Temp Pulse Resp BP Pulse Ox 36.8 C 71 18 104/77 98 07/25/19 06:32 07/25/19 06:32 07/25/19 06:32 07/25/19 06:32 07/25/19 06:32 Oxygen Delivery Method Room Air Weight: 82.7 kg Body Mass Index (BMI) 26.9 Intake and Output for Last 24 Hours 07/23/19 07/24/19 07/25/19 23:59 23:59 23:59 Intake Total 1250 / 1250 1770 / 1770 850 / 850 Output Total 200 / 200 Balance 1050 / 1050 1770 / 1770 850 / 850 General: Alert, No apparent distress HEENT: Atraumatic, Normocephalic Oral: Moist Mucosa, No Gingival or Mucosal Lesions/ Ulcerations Neck: No Nodes, Thyroid Normal Size and Texture Lungs: Clear to auscultation, Normal air movement, No rhonchi, No wheeze, No rales Cardiovascular: Regular rate, Regular Rhythm, Normal S1, Normal S2, No murmurs Abdomen: Bowel Sounds Present, Soft, Non Tender, Non-Distended, No Hepato-splenomegaly Extremities: No edema, No Calf Tenderness Skin: No rashes, No breakdown Psych/Mental Status: Normal Affect, Appropriate Microbiology Past 72 Hours 07/24/19 02:20 Mucosa - Nasopharyngeal Respiratory Panel (PCR) - Final Laboratory Results 07/23/19 18:06: Diff Path Review Reviewed 07/24/19 03:30: Diff Path Review Reviewed 07/25/19 08:00: Vancomycin Trough 10.4 07/25/19 08:00: WBC 2.0 L, RBC 4.73, Hgb 11.7 L, Hct 36.7 L, MCV 77.6 L, MCH 24.7 L, MCHC 31.9 L, RDW Std Deviation 40.0, RDW Coeff of Hebert 14.8 H, Plt Count 257, MPV 10.3, Neut % (Auto) Not Reportable, Absolute Neuts (auto) 0.8 L, Absolute Lymphs (auto) 0.94, Total Counted 100, Neutrophils % (Manual) 25 L, Band Neutrophils % 13 H, Lymphocytes % (Manual) 31, Monocytes % (Manual) 9, Eosinophils % (Manual) 1, Metamyelocytes % 1, Myelocytes % 1 H, Blast Cells % 3 H*, Nucleated RBCs/100 WBC 1, Diff Path Review May foll, Atypical Lymphocytes 16, Platelet Estimate ADEQUATE, Plt Morphology Comment GIANT, RBC Morphology N CHROM, Microcytosis 1+ 07/25/19 08:00: Sodium 133 L, Potassium 3.1 L, Chloride 98, Carbon Dioxide 26.0, Anion Gap 9, BUN 16, Creatinine 1.32 H, Estim Creat Clear Calc 55.05, Est GFR (MDRD) Af Amer 70, Est GFR (MDRD) Non-Af 58 L, BUN/Creatinine Ratio 12.1, Glucose 146 H, Calcium 8.3 L Current Medications Acetaminophen (Tylenol) 650 mg PO Q6H PRN PRN PRN Reason: Pain Score 1-10/Temp > 100.7 F Albuterol Sulfate (Ventolin Aerosols) 2.5 mg INHALATION Q2H PRN PRN PRN Reason: SOB &/OR WHEEZING Albuterol/Ipratropium (Duoneb) 3 ml INHALATION Q6HWA.RT [facility] Last Admin: 07/24/19 18:55 Dose: Not Given Documented by: Budesonide (Pulmicort Aerosol) 0.5 mg INHALATION Q12H.RT [facility] Last Admin: 07/24/19 18:55 Dose: Not Given Documented by: Dextrose (D50w Syringe) 0 gm IV X1 PRN; Protocol PRN Reason: Hypoglycemia Enoxaparin Sodium (Lovenox) 40 mg SC DAILY [facility] Last Admin: 07/24/19 09:25 Dose: 40 mg Documented by: Escitalopram Oxalate (Lexapro) 10 mg PO DAILY [facility] Last Admin: 07/24/19 09:25 Dose: 10 mg Documented by: Fluticasone Propionate (Flonase Nasal [place]) 2 spray NASAL DAILY PRN PRN PRN Reason: ALLERGIES Glucagon () 1 mg IM .X1 PRN PRN Reason: Hypoglycemia Hydrochlorothiazide (Hctz) 25 mg PO DAILY [facility] Last Admin: 07/24/19 09:25 Dose: 25 mg Documented by: Sodium Chloride () 250 mls @ 15 mls/hr IV .[id number] PRN PRN Reason: Saline Flush Last Infusion: 07/24/19 05:02 Dose: 0 mls/hr Documented by: Sodium Chloride () 250 mls @ 15 mls/hr IV .[id number] PRN PRN Reason: Additional IVPB Infusion Piperacillin Sod/Tazobactam (Sod 3.375 gm/ Sodium Chloride) 50 mls @ 12.5 mls/hr IV Q8 [facility] Last Admin: 07/25/19 06:19 Dose: 12.5 mls/hr Documented by: Loratadine (Claritin) 10 mg PO DAILY [facility] Last Admin: 07/24/19 09:25 Dose: 10 mg Documented by: Montelukast Sodium (Singulair) 10 mg PO DAILY [facility] Last Admin: 07/24/19 09:25 Dose: 10 mg Documented by: Naproxen (Naprosyn) 500 mg PO DAILY PRN PRN PRN Reason: Pain (1-10) or Fever [id number] Ethyl Esters (Lovaza) 1 gm PO DAILY [facility] Last Admin: 07/24/19 09:25 Dose: 1 gm Documented by: Ondansetron HCl (Zofran) 4 mg IV Q8H PRN PRN PRN Reason: NAUSEA/VOMITING Potassium Chloride (K-Dur) 10 meq PO DAILYCM [facility] Last Admin: 07/24/19 09:25 Dose: 10 meq Documented by: Sodium Chloride () 10 - 40 ml IV UD PRN PRN Reason: SALINE FLUSH Last Admin: 07/24/19 05:03 Dose: 20 ml Documented by: STROKE Vital Signs/Narrative: Vital Signs Temp Pulse Resp BP Pulse Ox 07/25/19 06:32 36.8 C 71 18 104/77 98 Medical Necessity - Tobacco Use Smoking Status: Former smoker Tobacco Use: Cigarettes Assessment/Plan All Active Problems (Last Reviewed 07/24/19 @ 01:[address] Jerrell Chen MD) Neutropenia (Acute) Lung cancer (Acute) 1. neutropenia improving 3 blast cells likely secondary to chemotherapy per [facility] records, WBC was 6.3 on 05/19 continue with pip/tazo, DC vanc follow up cultures, dw micro and won't be finalized until 07/25 UA negative COVID-19 negative 2. 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 He received on 07/08 and . pt prefers to follow up with [facility] rather than see a local oncologist because [place] use [place] area. 3. esophagitis no obvious thrush (though this does not exclude linnea esophagitis) start PPI and BMX consider fluconazole if ongoing despite the above treatment. 4. VTE prophylaxis: LMWH Inpatient E&M: 09770 Subs Hosp L2
[2019-07-25] MEDS: hydroCHLOROthiazide 25 MG Tablet PO (10:13)
[2019-07-25] MEDS: Escitalopram Oxalate 10 MG Tablet PO (10:13)
[2019-07-25] MEDS: Omega-3 Acid Ethyl Esters 1 GM Capsule PO (10:13)
[2019-07-25] MEDS: Montelukast 10 MG Tablet PO (10:13)
[2019-07-25] MEDS: Loratadine 10 MG Tablet PO (10:13)
[2019-07-25] MEDS: Budesonide Respules 0.5 MG/2 ML AMPUL.NEB. INHALATION ×2 (10:22→18:55)
[2019-07-25] MEDS: Ipratropium/Albuterol Sulfate 3 ML AMPUL.NEB INHALATION ×2 (10:23→18:55)
[2019-07-25 11:52] LABS: Pathologist Review Reviewed
--- NOTE | 2019-07-25 14:42 | CASEMGMT ---
Social Work Note SW reviewed chart. Pt with history of cancer, currently receiving chemo. SW completed Palliative care screening tool. SW attempted to meet with pt to discuss Palliative. Pt soundly sleeping, didn't awake when this worker entered the room. SW left Palliative Care brochure on pt's table for pt to review. SW to remain available if needed. Kay Aguilar DIRECTOR TELEVISION, [employer]
[2019-07-26 02:25] VITALS: BP 131/65; PULSE 82; RESP 20; TEMP 37.5; O2SAT 95
--- NOTE | 2019-07-26 07:43 | PCM.PN.PUL ---
Patient Problems: Active and Suspected Problems (Last Reviewed 07/24/19 @ 01:[address] Jerrell Chen MD) Neutropenia (Acute) Lung cancer (Acute) Subjective: Patient feels somewhat improved compared to yesterday. Patient still feels overall weak, but feels he is strong enough to go home. Patient continues to have throat pain, but denies any chest pain or change in cough. - Physical Exam Vitals/I&O's: Vital Signs Temp Pulse Resp BP Pulse Ox 37.5 C H 82 20 H 131/65 H 95 07/26/19 02:25 07/26/19 02:25 07/26/19 02:25 07/26/19 02:25 07/26/19 02:25 Oxygen Delivery Method Room Air Weight: 82.7 kg Body Mass Index (BMI) 26.9 Intake and Output for Last 24 Hours 07/24/19 07/25/19 07/26/19 23:59 23:59 23:59 Intake Total 1770 / 1770 1650 / 1650 400 / 400 Balance 1770 / 1770 1650 / 1650 400 / 400 General: Alert, Oriented x3, Cooperative, No apparent distress, - - No conversational dyspnea HEENT: Atraumatic, PERRLA, EOMI, Normocephalic, - - No scleral icterus or injection noted Oral: Moist Mucosa, No Gingival or Mucosal Lesions/ Ulcerations Neck: Supple, No JVD, No Nodes, Trachea Midline Lungs: No rhonchi, No wheeze, No rales, Diminished, - - Symmetric expansion. No dullness to percussion. Cardiovascular: Regular rate, Regular Rhythm, Normal S1, Normal S2, No murmurs, No rub noted, No Gallop Abdomen: Bowel Sounds Present, Soft, Non Tender, Non-Distended Extremities: No clubbing, No cyanosis, No edema, Capillary Refill Less than 3 Seconds Skin: - - No change compared to previous Musculoskeletal: No Tenderness to Palpation of Joints or Extremities Lymphatic: No Cervical, Supraclavicular, or Inguinal Adenopathy Neurological: Cranial nerves II-XII grossly intact, Neuro grossly intact, Motor Exam 5/5 strength throughout Psych/Mental Status: Alert and oriented to time, place, person, mood and affect Microbiology Past 72 Hours 07/23/19 22:57 Urine, Clean Catch Urine Culture - Final Culture exhibits no growth. 07/23/19 18:06 Blood Culture (Wb) - Port Blood Culture - Preliminary No growth in 48 hours. 07/23/19 18:29 Blood Culture (Wb) - Anticubital Left Blood Culture - Preliminary No growth in 48 hours. 07/24/19 02:20 Mucosa - Nasopharyngeal Respiratory Panel (PCR) - Final Laboratory Results 07/25/19 08:00: Vancomycin Trough 10.4 07/25/19 08:00: WBC 2.0 L, RBC 4.73, Hgb 11.7 L, Hct 36.7 L, MCV 77.6 L, MCH 24.7 L, MCHC 31.9 L, RDW Std Deviation 40.0, RDW Coeff of Hebert 14.8 H, Plt Count 257, MPV 10.3, Neut % (Auto) Not Reportable, Absolute Neuts (auto) 0.8 L, Absolute Lymphs (auto) 0.94, Total Counted 100, Neutrophils % (Manual) 25 L, Band Neutrophils % 13 H, Lymphocytes % (Manual) 31, Monocytes % (Manual) 9, Eosinophils % (Manual) 1, Metamyelocytes % 1, Myelocytes % 1 H, Blast Cells % 3 H*, Nucleated RBCs/100 WBC 1, Diff Path Review Reviewed, Atypical Lymphocytes 16, Platelet Estimate ADEQUATE, Plt Morphology Comment GIANT, RBC Morphology N CHROM, Microcytosis 1+ 07/25/19 08:00: Sodium 133 L, Potassium 3.1 L, Chloride 98, Carbon Dioxide 26.0, Anion Gap 9, BUN 16, Creatinine 1.32 H, Estim Creat Clear Calc 55.05, Est GFR (MDRD) Af Amer 70, Est GFR (MDRD) Non-Af 58 L, BUN/Creatinine Ratio 12.1, Glucose 146 H, Calcium 8.3 L Current Medications Acetaminophen (Tylenol) 650 mg PO Q6H PRN PRN PRN Reason: Pain Score 1-10/Temp > 100.7 F Albuterol Sulfate (Ventolin Aerosols) 2.5 mg INHALATION Q2H PRN PRN PRN Reason: SOB &/OR WHEEZING Albuterol/Ipratropium (Duoneb) 3 ml INHALATION Q6HWA.RT [facility] Last Admin: 07/25/19 18:55 Dose: 3 ml Documented by: Budesonide (Pulmicort Aerosol) 0.5 mg INHALATION Q12H.RT [facility] Last Admin: 07/25/19 18:55 Dose: 0.5 mg Documented by: Dextrose (D50w Syringe) 0 gm IV X1 PRN; Protocol PRN Reason: Hypoglycemia Enoxaparin Sodium (Lovenox) 40 mg SC DAILY [facility] Last Admin: 07/25/19 10:52 Dose: Not Given Documented by: Escitalopram Oxalate (Lexapro) 10 mg PO DAILY [facility] Last Admin: 07/25/19 10:13 Dose: 10 mg Documented by: Fluticasone Propionate (Flonase Nasal [place]) 2 spray NASAL DAILY PRN PRN PRN Reason: ALLERGIES Glucagon () 1 mg IM .X1 PRN PRN Reason: Hypoglycemia Hydrochlorothiazide (Hctz) 25 mg PO DAILY [facility] Last Admin: 07/25/19 10:13 Dose: 25 mg Documented by: Sodium Chloride () 250 mls @ 15 mls/hr IV .[id number] PRN PRN Reason: Saline Flush Last Infusion: 07/24/19 05:02 Dose: 0 mls/hr Documented by: Sodium Chloride () 250 mls @ 15 mls/hr IV .[id number] PRN PRN Reason: Additional IVPB Infusion Piperacillin Sod/Tazobactam (Sod 3.375 gm/ Sodium Chloride) 50 mls @ 12.5 mls/hr IV Q8 [facility] Last Admin: 07/26/19 06:29 Dose: 12.5 mls/hr Documented by: Lidocaine/Diphenhydr/Alum/Mg/Simeth () 10 ml PO Q3H PRN PRN PRN Reason: SORE THROAT Loperamide HCl (Imodium) 2 mg PO Q6H PRN PRN PRN Reason: Diarrhea Loratadine (Claritin) 10 mg PO DAILY [facility] Last Admin: 07/25/19 10:13 Dose: 10 mg Documented by: Montelukast Sodium (Singulair) 10 mg PO DAILY [facility] Last Admin: 07/25/19 10:13 Dose: 10 mg Documented by: Naproxen (Naprosyn) 500 mg PO DAILY PRN PRN PRN Reason: Pain (1-10) or Fever Nutritional Formula (Lactose Free) (Ensure Enlive) 120 ml PO 4X/DAY [facility] Last Admin: 07/25/19 22:15 Dose: Not Given Documented by: [id number]-Jyow Ethyl Esters (Lovaza) 1 gm PO DAILY [facility] Last Admin: 07/25/19 10:13 Dose: 1 gm Documented by: Ondansetron HCl (Zofran) 4 mg IV Q8H PRN PRN PRN Reason: NAUSEA/VOMITING Potassium Chloride (K-Dur) 10 meq PO DAILYCM [facility] Last Admin: 07/25/19 10:13 Dose: 10 meq Documented by: Sodium Chloride () 10 - 40 ml IV UD PRN PRN Reason: SALINE FLUSH Last Admin: 07/24/19 05:03 Dose: 20 ml Documented by: Medical Necessity - Tobacco Use Smoking Status: Former smoker Tobacco Use: Cigarettes Assessment/Plan All Active Problems (Last Reviewed 07/24/19 @ 01:[address] Jerrell Chen MD) Neutropenia (Acute) Lung cancer (Acute) RECOMMENDATIONS: 1. Consider discontinuation of antibiotics 2. Continue therapeutic substitution for home inhaler therapy. No indication for systemic steroids 3. Await morning labs, but likely okay to discharge without neutropenic precautions 4. Follow-up with primary ship engineer as an outpatient IMPRESSIONS: 1. Neutropenia secondary to chemotherapy Patient is not very informed about his current malignancy. Unclear what chemotherapy he has received, but he is 2 weeks out and this is likely secondary to this chemotherapy. Patient's COVID test was negative and does not report any risk factors. COVID precautions have been discontinued. Magic mouthwash was not well tolerated. Could consider an oncology evaluation for alternative options. No fevers noted overnight. Blood counts yesterday did show improvement in bone marrow output. Await repeat labs this morning, but likely okay to discharge. Blood cultures have been negative. 2. Lung cancer/COPD/asthma Patient does not appear to be in an acute exacerbation at this time. Patient has received a therapeutic substitution. Okay to continue with Claritin and montelukast. Patient does not appear to need any systemic steroids from my perspective. Would be helpful to obtain records from [facility] for confirmation of underlying disease process. Patient may have an element of paraneoplastic SIADH, but this cannot be confirmed at this time. Chemistries have been ordered. 3. Hyponatremia/hypokalemia/hypertension/poor informant Complicates care, management, recovery and prognosis. Supplementation as indicated. Okay to continue with baseline medications from my perspective. Inpatient E&M: 60200 Subs Hosp L2
[2019-07-26 08:15] VITALS: BP 127/68; PULSE 67; RESP 18; TEMP 36.5; O2SAT 95
[2019-07-26] MEDS: Omega-3 Acid Ethyl Esters 1 GM Capsule PO (08:32)
[2019-07-26] MEDS: Loratadine 10 MG Tablet PO (08:33)
[2019-07-26] MEDS: Montelukast 10 MG Tablet PO (08:33)
[2019-07-26] MEDS: Escitalopram Oxalate 10 MG Tablet PO (08:33)
[2019-07-26] MEDS: hydroCHLOROthiazide 25 MG Tablet PO (08:33)
[2019-07-26 08:50] LABS: Anion Gap 6 (5-15); BUN 15 mg/dL (7-18); BUN/Creat Ratio 10.9 RATIO (10-20); Calcium,Total 8.7 mg/dL (8.5-10.1); Chloride 97 mmol/L (98-107); Creatinine, Serum 1.38 mg/dL (0.70-1.30); EST Glomerular Filtration Rate 55 mL/min (>60); Est Glom Filt Rate - Afr Amer 66 mL/min (>60); Estimated Creatinine Clearance 52.65 ml/min; Glucose 161 mg/dL (74-106); Potassium 3.1 mmol/L (3.5-5.1); Sodium Level 133 mmol/L (136-145)
[2019-07-26 08:52] LABS: Hematocrit 37.5 % (40-54); Hemoglobin 12.1 g/dL (13.0-16.5); Mean Corp Hgb Conc 32.3 g/dL (32-36); Mean Corpuscular Hgb 24.8 pg (27.0-32.0); Mean Corpuscular Volume 76.8 fL (80-94); Mean Platelet Vol. 10.5 fl (6.2-12.0); POSITIVE COUNT YES; POSITIVE MORPHOLOGY YES; Platelet Count 277 K/mm3 (150-450); RBC Distribution Width CV 14.9 % (11.6-14.6); RBC Distribution Width SD 39.5 fl (35.1-43.9); Red Blood Count 4.88 M/mm3 (4.6-6.2); White Blood Count 4.1 K/mm3 (4.4-11.0)
[2019-07-26 08:53] LABS: Differential Indicated MANUAL DIFF
[2019-07-26 09:40] LABS: Lymphocyte 33 % (19-41); Metamyelocyte 8 % (0-1); Monocyte 6 % (0-10); Myelocyte 4 (0-0); Neutrophil-Band 7 % (0-5); Neutrophil-Segmented 40 % (47-70); Nucleated Red Bld Cells,Manual 1 % (0-5); Platelet Estimate ADEQUATE (ADEQ); Promyelocyte 2 (0-0); Red Cell Morphology NORM C+C NORMAL (NORM C&C); Total Cells Counted 100 (MANUAL DIFF)
[2019-07-26 09:41] LABS: Absolute Neutrophil Count 1.9 X10^3/uL (2.0-7.7)
[2019-07-26] MEDS: Phenol/Sodium Phenolate 180ML 3 SPRAY MM (10:31)
--- NOTE | 2019-07-26 10:36 | DCINST_ITS ---
- Discharge Diagnoses Current Active Problems: Current Active and Chronic Problems (Last Reviewed 07/24/19 @ 01:[address] Jerrell Chen MD) Neutropenia (Acute) Lung cancer (Acute) COPD (chronic obstructive pulmonary disease) (Chronic) Asthma (Chronic) Seasonal allergic rhinitis (Chronic) You will use the following diet at home:: No restrictions Your food should be the consistency of: Regular Call your doctor if you observe: Fever of 101 or Higher, Shortness of breath Allergies/Adverse Reactions: Allergies ether Adverse Reaction (Verified 07/23/19 16:55) Nausea Medications to take at Discharge Albuterol Sulfate [Albuterol Sulfate HFA] 1 - 2 puff IH Q4H PRN PRN 07/23/19 Budesonide/Formoterol Fumarate [Symbicort 80-4.5 Mcg Inhaler] 1 puff IH DAILY 07/23/19 Escitalopram Oxalate [Lexapro] 10 mg PO DAILY 07/23/19 Fluticasone 0.05% [Flonase Nasal [place]] 2 spray NASAL DAILY PRN PRN 07/23/19 Hydrochlorothiazide [Hctz] 25 mg PO DAILY 07/23/19 Loratadine 10 mg PO DAILY 07/23/19 Montelukast Sodium [Singulair] 10 mg PO DAILY 07/23/19 Naproxen Sodium [Aleve] 440 mg PO DAILY PRN PRN 07/23/19 Yeso-3/Dha/Epa/Fish Oil [[facility] Fish Oil 1,000 mg Softgel] 1 ea PO DAILY 07/23/19 Potassium Chloride [Klor-Con M10] 10 meq PO DAILY 07/23/19 Tiotropium [place] [Spiriva Respimat] 1 puff IH DAILY 07/23/19 Acetaminophen [Tylenol Tablet] 650 mg PO Q6H PRN PRN tablet 07/26/19 Bmx Liquid 10 ml PO Q3H PRN PRN #250 ml 07/26/19 Phenol [Chloraseptic] 20 ml MM 4X/DAY PRN PRN #1 spray 07/26/19 The following prescriptions were given: Bmx Liquid 10 ml PO Q3H PRN PRN #250 ml PRN Reason: Sore Throat Transmission Status: Pending to [facility]/pharmacy #[id number] Phenol [Chloraseptic] 20 ml MM 4X/DAY PRN PRN #1 spray PRN Reason: Sore Throat Primary Care Physician: [facility] Doctor,Out of [NON-STAFF] - Within 2 Weeks Test Results: Test results from this visit will be discussed in further detail at your follow- up appointment, if applicable. Please Follow Up With: Oncology When: at scheduled appointment next week Please Follow Up With: Pulmonology When: 4-6 weeks Proposed Discharge Date: 07/26/19
--- NOTE | 2019-07-26 10:38 | PCM.DC.SUM ---
Discharge Date and Diagnosis - Problem List Patient Problems: Active and Suspected Problems (Last Reviewed 07/24/19 @ 01:[address] Jerrell Chen MD) Neutropenia (Acute) Lung cancer (Acute) Date of Admission: 07/23/19 Date of Discharge: 07/26/19 - Primary Discharge Diagnosis Acute Problems: Active Problems (Last Reviewed 07/24/19 @ 01:[address] Jerrell Chen MD) 1. neutropenia improving 3 blast cells likely secondary to chemotherapy per [facility] records, WBC was 6.3 on 05/19 DC abx as cultures have been negative UA negative COVID-19 negative 2. 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 He received on 07/08 and . pt prefers to follow up with [facility] rather than see a local oncologist because [place] area. 3. esophagitis subjectively improved today no obvious thrush (though this does not exclude linnea esophagitis) start PPI and BMX consider fluconazole if ongoing despite the above treatment. - Secondary Discharge Diagnosis Chronic Problems: Chronic Problems (Last Reviewed 07/24/19 @ 01:[address] Jerrell Chen MD) COPD (chronic obstructive pulmonary disease) (Chronic) Asthma (Chronic) Seasonal allergic rhinitis (Chronic) Hospital Course and Treatment Pulmonology: [place] Operations: None, cholecystecomy Procedures: None Summary of Care Provided: The patient is a 68 year old M presents with sore throat. Patient also having malaise, diaphoresis and headache. Patient was noted to be neutropenic which was new. Patient had previously received cis-mary's igloo and etopside for non-small cell lung cancer. Patient was pancultured and initially started on Pipracil and/tazobactam and vancomycin. Pancultured and which all came back negative including COVID-19. Antibiotics were discontinued and white count today is 4000. Patient did have some blast cells on his CBC yesterday. Patient instructed to follow-up with his oncologist. Patient states that he has appointment next week. Encourage patient to follow-up at that time. Patient also recommend a follow-up pulmonology as well. Patient did complain of sore throat but there is no evidence of any thrush. Patient was started on BMX as well as PPI. Consideration for fluconazole if not any better further remote possibility of this being Linnea esophagitis. [] Patient Problems: Active and Suspected Problems (Last Reviewed 07/24/19 @ 01:[address] Jerrell Chen MD) Neutropenia (Acute) Lung cancer (Acute) - Physical Exam Vitals/I&O's: Vital Signs Temp Pulse Resp BP Pulse Ox 36.5 C L 67 18 127/68 H 95 07/26/19 08:15 07/26/19 08:15 07/26/19 08:15 07/26/19 08:15 07/26/19 08:15 Oxygen Delivery Method Room Air Weight: 82.7 kg Body Mass Index (BMI) 26.9 Intake and Output for Last 24 Hours 07/24/19 07/25/19 07/26/19 23:59 23:59 23:59 Intake Total 1770 / 1770 1650 / 1650 450 / 450 Balance 1770 / 1770 1650 / 1650 450 / 450 General: Alert, No apparent distress HEENT: Atraumatic, Normocephalic Oral: Moist Mucosa, No Gingival or Mucosal Lesions/ Ulcerations Neck: No Nodes, Thyroid Normal Size and Texture Lungs: Clear to auscultation, Normal air movement, No rhonchi, No wheeze Cardiovascular: Regular rate, Regular Rhythm, Normal S1, Normal S2 Abdomen: Bowel Sounds Present, Soft, Non Tender, Non-Distended, No Hepato-splenomegaly Extremities: No edema, No Calf Tenderness Skin: No rashes, No breakdown Psych/Mental Status: Normal Affect, Appropriate Microbiology Past 72 Hours 07/23/19 22:57 Urine, Clean Catch Urine Culture - Final Culture exhibits no growth. 07/23/19 18:06 Blood Culture (Wb) - Port Blood Culture - Preliminary No growth in 48 hours. 07/23/19 18:29 Blood Culture (Wb) - Anticubital Left Blood Culture - Preliminary No growth in 48 hours. 07/24/19 02:20 Mucosa - Nasopharyngeal Respiratory Panel (PCR) - Final Laboratory Results 07/25/19 08:00: Diff Path Review Reviewed 07/26/19 08:07: WBC 4.1 L, RBC 4.88, Hgb 12.1 L, Hct 37.5 L, MCV 76.8 L, MCH 24.8 L, MCHC 32.3, RDW Std Deviation 39.5, RDW Coeff of Hebert 14.9 H, Plt Count 277, MPV 10.5, Neut % (Auto) Not Reportable, Absolute Neuts (auto) 1.9 L, Absolute Lymphs (auto) 1.30, Total Counted 100, Neutrophils % (Manual) 40 L, Band Neutrophils % 7 H, Lymphocytes % (Manual) 33, Monocytes % (Manual) 6, Metamyelocytes % 8 H, Myelocytes % 4 H, Promyelocytes % 2 H, Nucleated RBCs/100 WBC 1, Diff Path Review June, Platelet Estimate ADEQUATE, RBC Morphology NORM C+C 07/26/19 08:07: Sodium 133 L, Potassium 3.1 L, Chloride 97 L, Carbon Dioxide 30.0, Anion Gap 6, BUN 15, Creatinine 1.38 H, Estim Creat Clear Calc 52.65, Est GFR (MDRD) Af Amer 66, Est GFR (MDRD) Non-Af 55 L, BUN/Creatinine Ratio 10.9, Glucose 161 H, Calcium 8.7 Current Medications Acetaminophen (Tylenol) 650 mg PO Q6H PRN PRN PRN Reason: Pain Score 1-10/Temp > 100.7 F Albuterol Sulfate (Ventolin Aerosols) 2.5 mg INHALATION Q2H PRN PRN PRN Reason: SOB &/OR WHEEZING Albuterol/Ipratropium (Duoneb) 3 ml INHALATION Q6HWA.RT [facility] Last Admin: 07/25/19 18:55 Dose: 3 ml Documented by: Budesonide (Pulmicort Aerosol) 0.5 mg INHALATION Q12H.RT [facility] Last Admin: 07/25/19 18:55 Dose: 0.5 mg Documented by: Dextrose (D50w Syringe) 0 gm IV X1 PRN; Protocol PRN Reason: Hypoglycemia Enoxaparin Sodium (Lovenox) 40 mg SC DAILY [facility] Last Admin: 07/26/19 08:34 Dose: Not Given Documented by: Escitalopram Oxalate (Lexapro) 10 mg PO DAILY [facility] Last Admin: 07/26/19 08:33 Dose: 10 mg Documented by: Fluticasone Propionate (Flonase Nasal [place]) 2 spray NASAL DAILY PRN PRN PRN Reason: ALLERGIES Glucagon () 1 mg IM .X1 PRN PRN Reason: Hypoglycemia Hydrochlorothiazide (Hctz) 25 mg PO DAILY [facility] Last Admin: 07/26/19 08:33 Dose: 25 mg Documented by: Sodium Chloride () 250 mls @ 15 mls/hr IV .[id number] PRN PRN Reason: Saline Flush Last Infusion: 07/24/19 05:02 Dose: 0 mls/hr Documented by: Sodium Chloride () 250 mls @ 15 mls/hr IV .[id number] PRN PRN Reason: Additional IVPB Infusion Piperacillin Sod/Tazobactam (Sod 3.375 gm/ Sodium Chloride) 50 mls @ 12.5 mls/hr IV Q8 [facility] Last Infusion: 07/26/19 10:34 Dose: Infused Documented by: Lidocaine/Diphenhydr/Alum/Mg/Simeth () 10 ml PO Q3H PRN PRN PRN Reason: SORE THROAT Loperamide HCl (Imodium) 2 mg PO Q6H PRN PRN PRN Reason: Diarrhea Loratadine (Claritin) 10 mg PO DAILY [facility] Last Admin: 07/26/19 08:33 Dose: 10 mg Documented by: Montelukast Sodium (Singulair) 10 mg PO DAILY [facility] Last Admin: 07/26/19 08:33 Dose: 10 mg Documented by: Naproxen (Naprosyn) 500 mg PO DAILY PRN PRN PRN Reason: Pain (1-10) or Fever Nutritional Formula (Lactose Free) (Ensure Enlive) 120 ml PO 4X/DAY [facility] Last Admin: 07/26/19 08:33 Dose: Not Given Documented by: Olbtq-3-Wkuy Ethyl Esters (Lovaza) 1 gm PO DAILY [facility] Last Admin: 07/26/19 08:32 Dose: 1 gm Documented by: Ondansetron HCl (Zofran) 4 mg IV Q8H PRN PRN PRN Reason: NAUSEA/VOMITING Phenol/Menthol (Chloraseptic (Bkc)) 3 spray MM Q2H PRN PRN PRN Reason: SORE THROAT Last Admin: 07/26/19 10:31 Dose: 3 spray Documented by: [facility] Admin: 07/26/19 08:33 Dose: 10 meq Documented by: Sodium Chloride () 10 - 40 ml IV UD PRN PRN Reason: SALINE FLUSH Last Admin: 07/24/19 05:03 Dose: 20 ml Documented by: Discharge Diet: No Restrictions Call your doctor if you observe: Fever of 101 or Higher, Shortness of breath Home Medications: Medications to take at Discharge Albuterol Sulfate [Albuterol Sulfate HFA] 1 - 2 puff IH Q4H PRN PRN 07/23/19 Budesonide/Formoterol Fumarate [Symbicort 80-4.5 Mcg Inhaler] 1 puff IH DAILY 07/23/19 Escitalopram Oxalate [Lexapro] 10 mg PO DAILY 07/23/19 Fluticasone 0.05% [Flonase Nasal [place]] 2 spray NASAL DAILY PRN PRN 07/23/19 Hydrochlorothiazide [Hctz] 25 mg PO DAILY 07/23/19 Loratadine 10 mg PO DAILY 07/23/19 Montelukast Sodium [Singulair] 10 mg PO DAILY 07/23/19 Naproxen Sodium [Aleve] 440 mg PO DAILY PRN PRN 07/23/19 [place]-3/Dha/Epa/Fish Oil [[facility] Fish Oil 1,000 mg Softgel] 1 ea PO DAILY 07/23/19 Potassium Chloride [Klor-Con M10] 10 meq PO DAILY 07/23/19 Tiotropium [place] [Spiriva Respimat] 1 puff IH DAILY 07/23/19 Acetaminophen [Tylenol Tablet] 650 mg PO Q6H PRN PRN tablet 07/26/19 Bmx Liquid 10 ml PO Q3H PRN PRN #250 ml 07/26/19 Phenol [Chloraseptic] 20 ml MM 4X/DAY PRN PRN #1 spray 07/26/19 Following Prescrptions Were Given to Patient: Bmx Liquid 10 ml PO Q3H PRN PRN #250 ml PRN Reason: Sore Throat Transmission Status: Pending to [facility]/pharmacy #[id number] Phenol [Chloraseptic] 20 ml MM 4X/DAY PRN PRN #1 spray PRN Reason: Sore Throat Primary Care Physician: Aron Doctor,Out of [NON-STAFF] - Within 2 Weeks Please Follow Up With: Oncology When: at scheduled appointment next week Please Follow Up With: Pulmonology When: 4-6 weeks Disposition: Home Minutes spent on discharge:: 32 Patient Condition:: Fair Medical Necessity - Tobacco Use Smoking Status: Former smoker Tobacco Use: Cigarettes Meaningful Use Info Meaningful Use Diagnoses (Choose all that apply): None applicable Inpatient E&M: 12468 Disch Hosp
[2019-07-26] MEDS: Loperamide 2 MG Capsule PO (11:07)
[2019-07-28 12:17] LABS: Pathologist Review Reviewed
== END 2019-07-26 12:29 | disposition home or self-care (01) | DRG 809 ==
LOC: ED 18:02 → ICU 21:13 → MS3 07-24 15:01
PROVIDERS: Internal Medicine Critical Care Medicine; Admitting Provider Hospitalist; Emergency Provider Emergency Medicine
DX: D70.1 Agranulocytosis secondary to cancer chemotherapy (principal); R50.81 Fever presenting with conditions classified elsewhere; T45.1X5A Adverse effect of antineoplastic and immunosuppressive drugs, initial encounter; Y92.9 Unspecified place or not applicable; C34.01 Malignant neoplasm of right main bronchus; K20.9 Esophagitis, unspecified; E87.1 Hypo-osmolality and hyponatremia; E87.6 Hypokalemia; J44.9 Chronic obstructive pulmonary disease, unspecified; J45.40 Moderate persistent asthma, uncomplicated; I10 Essential (primary) hypertension; Z79.51 Long term (current) use of inhaled steroids; Z79.899 Other long term (current) drug therapy
CPT/HCPCS: 36415; 36591; 71045; 80048; 80053; 80202; 81001; 83605; 84484; 85025; 85610; 85730; 87040; 87086; 87633; 87635; 93005; 94640; 99284; G2023; J7040; J7050; A4216; U0003

== ENCOUNTER 2019-08-21 16:05 | Emergency (ER) | payer MEDICARE, MEDICAID, SELFPAY ==
[2019-08-21 13:00] VITALS: BMI 27.6
[2019-08-21 16:07] VITALS: BP 131/90; PULSE 94; PULSE 98; RESP 16; RESP 20; TEMP 36.4; O2SAT 95; O2SAT 96; BMI 26.7
[2019-08-21] MEDS: 0.9% Normal Saline 1,000 ML 1000 ML IV (16:20)
[2019-08-21 16:30] LABS: Bedside Glucose > 500 mg/dL (70-110)
--- NOTE | 2019-08-21 16:50 | ED.VISSUMM ---
- ER Visit Summary Date of Service: 08/21/19 Chief Complaint: Elevated blood sugar History of Present Illness: The patient is a 68 M history of COPD and lung cancer. He is undergoing chemotherapy. He has had borderline diabetes but states he was never diagnosed as diabetic. His doctor tried to put him on diabetic meds but the insurance today would not cover it. Today he went to the oncologist had labs drawn his blood sugar was 500-600 and is in the emergency room be evaluated. He denies any nausea, vomiting, diarrhea or fever. He denies other complaints. He currently is on no diabetic meds nor does he have a glucometer. Physical Examination: Older male no acute distress vital signs stable afebrile. H EENT exam unremarkable. Neck nontender. Lungs clear to auscultation. Heart regular rhythm no murmur. Abdomen soft nontender. Extremities moves all 4. Calves nontender without edema or cords. Neurologically is awake alert with no focal motor deficits. Test Results: Nurse obtained a BG T it was 520. He had labs done earlier today at the oncology center which showed a chronic anemia. And elevated blood sugar. He has chronic renal insufficiency with a creatinine of 1.6. P BG T was 341 at 6:50 PM. It is improving. Emergency Department Course and Treatment: I explained to the patient is truly diabetic. To be given a liter normal saline. P.o. Metformin and his blood sugar will be rechecked after treatment. Treatment Plan: Metformin for his diabetes. Glucometer check his blood sugars 3 times a day. Follow-up with a local primary care physician for diabetic management. Disposition: Discharge Impression: Acute hyperglycemia secondary to new onset diabetes History of cystic lung CA with COPD This note was generated with [employer] dictation software. It may contain incorrect words, spelling, and punctuation that were not noted in review of the chart prior to signing ED Disposition - Plan for ED Patient: Referrals: NOT,DEFINED [NON-STAFF] -
[2019-08-21] MEDS: metFORMIN (XR) 500 MG Tablet 1000 MG PO (17:24)
[2019-08-21 18:56] LABS: Bedside Glucose 341 mg/dL (70-110)
--- NOTE | 2019-08-21 19:46 | DCINST.ED_ITS ---
ED Disposition - Plan for ED Patient: Disposition: Home or Assisted Living Instructions: ED Diabetic Hyperglycemia Prescriptions: metFORMIN (XR) [Glucophage Xr] 1,000 mg PO DAILY #30 tab Prescription Printed Referrals: Cosme Dorsey MD [STAFF PHYSICIAN] - As soon as possible Additional Instructions: Metformin daily for your diabetes. You must get a glucometer and check your blood sugars at least 3 times a day. Call and follow-up with a local primary care physician I referred you to Dr. Cosme Torres of [facility] but you can choose any physician of your choice. Return if feeling worse.
[2019-08-21 20:02] VITALS: RESP 18
== END 2019-08-21 20:05 | disposition home or self-care (01) ==
PROVIDERS: Emergency Provider Emergency Medicine
DX: E11.65 Type 2 diabetes mellitus with hyperglycemia (principal); J44.9 Chronic obstructive pulmonary disease, unspecified; C34.90 Malignant neoplasm of unspecified part of unspecified bronchus or lung; E11.22 Type 2 diabetes mellitus with diabetic chronic kidney disease; I12.9 Hypertensive chronic kidney disease with stage 1 through stage 4 chronic kidney disease, or unspecified chronic kidney disease; N18.9 Chronic kidney disease, unspecified; Z79.84 Long term (current) use of oral hypoglycemic drugs; Z79.82 Long term (current) use of aspirin; Z79.899 Other long term (current) drug therapy; Z87.891 Personal history of nicotine dependence
CPT/HCPCS: 80053; 82962; 85025; 96360; 99283; J7030; A4216

== ENCOUNTER → 2019-09-03 13:08 | Outpatient (CLI) | payer MEDICARE, MEDICAID, SELFPAY ==
[2019-08-26 10:15] VITALS: BMI 26.7
[2019-08-26 10:22] VITALS: BMI 26.7
[2019-09-03 10:46] VITALS: BMI 26.6
--- NOTE | 2019-09-03 13:10 | CT_ITS ---
STUDY: CT ABDOMEN AND PELVIS WITHOUT CONTRAST REASON FOR EXAM: Male, 68 years old. MALIGNANT NEUROENDOCRINE TUMOR/COPD RADIATION DOSAGE (If Supplied By Facility): CTDIvol = ( 15.11 ) mGy, DLP = ( 1466.80 ) mGycm TECHNIQUE: Transaxial images were obtained from the dome of the diaphragm to the symphysis pubis without oral contrast, and without intravenous contrast. Sagittal and coronal images were reconstructed. Individualized dose optimization techniques were used for this CT. COMPARISON: None. FINDINGS: There is decreased attenuation of the liver consistent with steatosis. The gallbladder is contracted. Normal spleen. Normal pancreas. Normal bilateral adrenal glands. No obstructive uropathy, there is a 5 mm left renal cyst Normal visualized stomach. Multiple nondistended fluid-filled small bowel loops are noted consistent with ileus. There are multiple colonic diverticula consistent with diverticulosis. The appendix is visualized and appears normal. Appendix best seen on coronal recon images 62 through 77 Normal abdominal aorta. Normal inferior vena cava. Scattered subcentimeter mesenteric and retroperitoneal lymph nodes Normal urinary bladder. There are prostatic calcifications. Normal abdominal wall. There are diffuse degenerative changes of the visualized lumbar spine, and pelvis. CT/Abdomen/Pelvis W IV Cont ONLY IMPRESSION: Diffuse fatty infiltration of the liver, no discrete lesion Simple left renal cyst, no specific follow-up needed Small bowel ileus Colonic diverticulosis Normal appendix visualized Prostate calcifications Electronically Signed: Pool Kinsey MD at 13:56 EDT , Service support ,
--- NOTE | 2019-09-03 13:10 | CT_ITS ---
STUDY: CT CHEST WITH CONTRAST REASON FOR EXAM: Male, 68 years old. MALIGNANT NEUROENDOCREINE TUMOR/COPD RADIATION DOSAGE (If Supplied By Facility): CTDIvol = ( 15.11 ) mGy, DLP = ( 1466.80 ) mGycm TECHNIQUE: Transaxial imaging was performed following intravenous administration of IV 100mL Isovue-300. Multiplanar coronal and sagittal images were reformatted. Individualized dose optimization techniques were used for this CT. COMPARISON: Previous plain film FINDINGS: Lung windows show underlying emphysema with bleb formation in both upper lobes. There is a suspicious bulky soft tissue mass in the right hilar region which surrounds the distal right mainstem bronchus and narrows the right upper and right middle lobe bronchi. Measures approximately 4.3 x 5.2 x 3.6 cm. Additionally, there is a pleural-based 3 mm nodule in the right lower lobe on axial image 80 a 4 mm noncalcified nodule in the right middle lobe on axial image 90. Soft tissue windows show normal-appearing thyroid gland. There are scattered borderline enlarged axillary lymph nodes measuring up to 1.2 cm on short axis dimension and multiple suspicious bulky mediastinal lymphadenopathy, largest node measures 1.8 cm in short axis dimension anterior to the trachea. The previously described right perihilar mass extends into the mediastinum and surrounds the right main pulmonary artery as well. The previously described mass, noncalcified nodules in the lung benitez and now they are all suspicious for metastasis Normal heart and pericardium. Normal enhanced pulmonary arteries. Normal aorta arch and descending thoracic aorta. There are multi-level degenerative changes of the thoracic spine. CT/Chest WITH Contrast IMPRESSION: Underlying emphysema with bleb formation in both upper lobes and the highly suspicious large right perihilar mass measuring at least 4.3 x 5.2 x 3.6 cm. Noncalcified pulmonary nodules in the right middle and lower lobes suspicious for metastasis Suspicious bulky mediastinal, and axillary lymphadenopathy also suspicious for metastasis No organized infiltrate or effusion Degenerative bony changes Electronically Signed: Pool Kinsey MD at 13:51 EDT , Service support ,
== END ==
PROVIDERS: PCP Internal Medicine; Referring Provider Nurse Practitioner Family; Visit Provider Nurse Practitioner Family
DX: C7A.8 Other malignant neuroendocrine tumors (principal); C34.90 Malignant neoplasm of unspecified part of unspecified bronchus or lung; C77.9 Secondary and unspecified malignant neoplasm of lymph node, unspecified
CPT/HCPCS: 71260; 74177; 82565; 84520; J7030; Q9967; A4216

== ENCOUNTER → 2019-09-08 07:51 | Outpatient (CLI) | payer MEDICARE, MEDICAID, SELFPAY ==
[2019-08-26 10:22] VITALS: BMI 26.7
[2019-08-27 15:32] VITALS: BMI 26.7
--- NOTE | 2019-09-08 07:51 | NM_ITS ---
CLINICAL: 68-year-old male with reported history of neuroendocrine neoplasm. WHOLE BODY 99m Tc MDP RADIONUCLIDE BONE SCINTIGRAPHY COMPARISON: CT of the chest, abdomen and pelvis reports 09/03/2019 FINDINGS: Following the intravenous administration of 26.8 mCi of 99m Tc MDP, whole body bone images reveal: 1. Increased radiopharmaceutical concentration is identified in the acromioclavicular, sternoclavicular and glenohumeral compartments of both shoulders, first-third sixth-10th thoracic, fifth lumbar vertebra, left posterior sacrum, patellofemoral compartments of both knees, medial tibial compartment of the right knee, posterior compartment of the left ankle, left wrist, visualized bilateral hands. 2. The remaining skeletal structures are scintigraphically unremarkable with normal-appearing renal images and urinary bladder activity identified. NM/Bone Scan Whole Body IMPRESSION: 1. Increased radiopharmaceutical concentration identified in the bilateral shoulders, thoracic and lumbar spine, sacrum, bilateral knees, left ankle, left wrist and right-left hands is most consistent with degenerative arthritis. 2. There is no definitive typical scintigraphic evidence of diffuse axial skeletal metastatic disease on the current examination. Electronically Signed: Reinaldo Jacobs DO at 22:10 EDT Tel , Service support ,
== END ==
PROVIDERS: PCP Internal Medicine; Referring Provider Internal Medicine Hematology & Oncology; Visit Provider Internal Medicine Hematology & Oncology
DX: C7A.8 Other malignant neuroendocrine tumors (principal); C34.90 Malignant neoplasm of unspecified part of unspecified bronchus or lung; C77.9 Secondary and unspecified malignant neoplasm of lymph node, unspecified
CPT/HCPCS: 77338; 77386; 78306; 80053; 85025; 96413; 96417; J7040; J9045; A4216; J1453; J2469; J3490; J9181

== ENCOUNTER 2019-09-25 09:45 | Outpatient (RCR) | payer MEDICARE, MEDICAID, SELFPAY ==
[2019-08-26 10:22] VITALS: BMI 26.7
[2019-09-03 13:55] VITALS: BMI 26.6
== END 2019-09-25 23:59 | disposition home or self-care (01) ==
LOC: DC 09:45
PROVIDERS: PCP Internal Medicine; Visit Provider Nurse Practitioner Family
DX: Z71.3 Dietary counseling and surveillance (principal); E11.9 Type 2 diabetes mellitus without complications
CPT/HCPCS: G0108

== ENCOUNTER → 2019-12-16 12:27 | Outpatient (CLI) | payer MEDICARE, MEDICAID, SELFPAY ==
[2019-09-10 14:14] VITALS: BMI 26.7
[2019-11-24 08:47] VITALS: BMI 28.6
--- NOTE | 2019-12-16 12:28 | CT_ITS ---
STUDY: CT CHEST WITH CONTRAST REASON FOR EXAM: Male, 68 years old. LUNG CA RADIATION DOSAGE (If Supplied By Facility): CTDIvol = ( 9.46 ) mGy, DLP = ( 682.30 ) mGycm TECHNIQUE: Transaxial imaging was performed following intravenous administration of IV 100ML ISOVUE 300. Individualized dose optimization techniques were used for this CT. COMPARISON: 09/03/2019. FINDINGS: There is mild generalized interstitial thickening and emphysematous changes in the upper lobes. There is no focal infiltration.. There is a spiculated noncalcified lesion in the right upper lobe measuring approximately 3 x 1.75 cm which may be consistent with neoplasm. There is no demonstrated pleural abnormality. Normal heart and pericardium. Normal mediastinum. There is enlarged right hilar node measuring 1.9 x 1.96 cm possibly neoplastic.. Normal enhanced pulmonary arteries. Normal aorta arch and descending thoracic aorta. There are bilateral axillary nodes the largest on the right measuring 1.6 x 1.2 cm Dorsal spine demonstrates degenerative change Nonspecific fatty infiltration of liver without mass or bile duct dilatation There has been considerable reduction in size of the right upper lobe mass and previously noted adenopathy since previous exam. CT/Chest WITH Contrast IMPRESSION: Persistent right upper lobe mass and right hilar adenopathy both of which have decreased in size since prior exam. No new lesions identified. PET scan may be useful for further evaluation if indicated clinically Electronically Signed: Aníbal Bashir MD at 19:09 EST , Service support ,
--- NOTE | 2019-12-16 12:28 | CT_ITS ---
STUDY: CT ABDOMEN WITH CONTRAST REASON FOR EXAM: Male, 68 years old. LUNG CA RADIATION DOSAGE (If Supplied By Facility): CTDIvol = ( 17.84 ) mGy, DLP = ( 533.10 ) mGycm TECHNIQUE: Transaxial images were obtained post I.V. administration of IV 100ML ISOVUE 300, and without oral contrast. Sagittal and coronal images were reconstructed. Individualized dose optimization techniques were used for this CT. COMPARISON: Comparison is made with prior study dated 09/03/2019. FINDINGS: The visualized lung bases are unremarkable. The visualized portions of the heart are within normal limits. There is decreased attenuation of the liver consistent with steatosis. Normal gallbladder and extrahepatic biliary system. Normal spleen. Normal pancreas. Normal bilateral adrenal glands. Normal right kidney. Normal left kidney. Normal visualized stomach. Normal small intestine. Normal colon. The appendix is visualized and appears normal. Normal abdominal aorta. Normal inferior vena cava. There is borderline retroperitoneal lymphadenopathy with enlarged nodes no greater than 10mm in the short axis diameter. Normal abdominal wall. There are diffuse degenerative changes of the visualized lumbar spine. CT/Abdomen WITH IV Contrast IMPRESSION: Fatty infiltration of the liver. Stable examination. Electronically Signed: Roosevelt Polk, at 15:45 EST , Service support ,
[2019-12-16] MEDS: 0.9% Saline Lock 10 ML Syringe IV (12:45)
== END ==
PROVIDERS: Referring Provider Internal Medicine Hematology & Oncology; Visit Provider Internal Medicine Hematology & Oncology
DX: C34.11 Malignant neoplasm of upper lobe, right bronchus or lung (principal)
CPT/HCPCS: 71260; 74160; Q9967; A4216

== ENCOUNTER 2020-01-20 11:44 | Emergency (ER) | payer MEDICARE, MEDICAID, SELFPAY ==
[2019-09-10 14:14] VITALS: BMI 26.7
[2019-11-24 08:47] VITALS: BMI 28.6
[2020-01-20 11:45] VITALS: BP 103/80; PULSE 68; RESP 18; TEMP 35.9; O2SAT 96; BMI 26.5
--- NOTE | 2020-01-20 12:04 | CT_ITS ---
STUDY: CT ABDOMEN AND PELVIS WITHOUT CONTRAST REASON FOR EXAM: Male, 69 years old. Flank pain. Hx lung cancer with chemo. RADIATION DOSAGE (If Supplied By Facility): CTDIvol = ( 10.49 ) mGy, DLP = ( 513.61 ) mGycm TECHNIQUE: Transaxial images were obtained from the dome of the diaphragm to the symphysis pubis without oral contrast, and without intravenous contrast. Sagittal and coronal images were reconstructed. Individualized dose optimization techniques were used for this CT. COMPARISON: Comparison is made with prior study dated 12/16/2019. FINDINGS: The visualized lung bases are unremarkable. The visualized portions of the heart are within normal limits. There is decreased attenuation of the liver consistent with steatosis. Normal gallbladder and extrahepatic biliary system. Borderline splenomegaly. Normal pancreas. Normal bilateral adrenal glands. Normal right kidney. Normal left kidney. Normal visualized stomach. Normal small intestine. Normal colon. The appendix is visualized and appears normal. There is scattered atherosclerotic calcification of the abdominal aorta, without a demonstrated aneurysm. Normal inferior vena cava. There is borderline retroperitoneal lymphadenopathy with enlarged nodes no greater than 10mm in the short axis diameter. Normal urinary bladder. There are prostatic calcifications. There is a small umbilical hernia containing fat. There are degenerative changes of the visualized lower lumbar spine. CT/Abdomen/Pelvis without Cont IMPRESSION: Fatty infiltration of the liver. Borderline splenomegaly. Electronically Signed: Roosevelt Polk, at 13:02 EST , Service support ,
--- NOTE | 2020-01-20 12:13 | ED.DCSUM_ITS ---
- ER Visit Summary Date of Service: 01/20/20 Chief Complaint: [Back pain] History of Present Illness: The patient is a 69 M [presents to the emergency department complaint of pain in his back for about a week. Patient states that he finished chemo and radiation about 8 weeks ago. Patient being treated for lung cancer. He describes the pain kind of in the lower back and then he is also got a pain between the shoulder blades that tends to come and go. He denies any pain rating down his legs. He denies any change in bowel or bladder function. He denies weakness of the extremities. Patient did not know if the lung cancer had spread to the bone. Patient denies urinary symptoms. He denies fever. Patient states the pain is worse with certain movements and seems to be positional. Pain does not seem to hurt if he pushes on it. Patient has been using naproxen but not get much pain relief.] Physical Examination: [HEENT-PERRLA, EOMI. Cranial nerves II through XII grossly intact. TMs clear. Mucous membranes moist. No adenopathy. Cardiovascular-regular rate and rhythm without murmur or ectopy Lungs-clear to auscultation, chest wall stable without crepitus or subcu emphysema Abdomen-normoactive bowel sounds, soft, nontender, no rebound or rigidity, no peritoneal signs. Back exam-no real tenderness on exam of the thoracic or lumbar spine. Negative straight leg raises. Deep tendon reflexes are plus 2 out of 4 bilaterally at the patella and Achilles. Patient has normal L5 extension. Extremities-intact ?4, normal range of motion, normal pulses, atraumatic] Test Results: [CBC with differential obtained showed a white count 6.2, hemo globin 11, hematocrit 36, placed 235. Chemistries unremarkable. CT flank showed borderline splenomegaly otherwise nothing significant. Patient has some degenerative changes of the lumbar spine. I was able to look of patient's prior visits and he did have a bone scan in August of this year that showed increased uptake in the thoracic and lumbar spine.] Emergency Department Course and Treatment: [IV line established on arrival. He denied wanting thing for pain here as he is driving. She was unable to give a urine sample however he said no urinary symptoms and my suspicion for UTI is extremely low.] Treatment Plan: [We will be given a prescription for Percocet for pain. And he is advised to follow-up with his oncologist within next 3 to 5 days. Its unclear the etiology of his pain given that he does have a history of degenerative disc disease and chronic back pain and had been in pain management. Patient also remains with the possibility of bony metastasis given the increased uptake on his bone scan from August of this year.] Patient has no signs or symptoms of cauda equina. Disposition: [Discharged home in stable condition] Impression: [Back pain-etiology uncertain] This note was generated with [employer] dictation software. It may contain incorrect words, spelling, and punctuation that were not noted in review of the chart prior to signing ED Disposition - Plan for ED Patient: Referrals: NOT,DEFINED [NON-STAFF] -
[2020-01-20 12:20] LABS: Absolute Lymphocyte Count 0.33 X10^3/uL (0.83-4.51); Absolute Neutrophil Count 5.2 X10^3/uL (2.0-7.7); Basophil# 0.02 X10^3/uL; Basophil% 0.3 % (0-1); Eosinophils% 6.4 % (0-5); Hematocrit 35.9 % (40-54); Hemoglobin 11.3 g/dL (13.0-16.5); Lymphocyte # 0.33 X10^3/ul (4.0); Lymphocyte % 5.3 % (19-41); Mean Corp Hgb Conc 31.5 g/dL (32-36); Mean Corpuscular Hgb 26.2 pg (27.0-32.0); Mean Corpuscular Volume 83.3 fL (80-94); Mean Platelet Vol. 10.5 fl (6.2-12.0); Monocyte# 0.32 X10^3/uL; Monocyte% 5.1 % (0-10); NRBC Flagged by Analyzer 0 % (0-5); Neutrophil # 5.15 X10^3/uL (2.7-7.7); Neutrophil % 82.6 % (47-70); POSITIVE DIFFERENTIAL YES; Platelet Count 235 K/mm3 (150-450); RBC Distribution Width CV 15.6 % (11.6-14.6); RBC Distribution Width SD 47.7 fl (35.1-43.9); Red Blood Count 4.31 M/mm3 (4.6-6.2); White Blood Count 6.2 K/mm3 (4.4-11.0)
[2020-01-20 12:24] LABS: Differential Indicated SCAN CRITERIA MET
[2020-01-20 12:36] LABS: Anion Gap 7 (5-15); BUN 17 mg/dL (7-18); BUN/Creat Ratio 13.9 RATIO (10-20); Calcium,Total 9.1 mg/dL (8.5-10.1); Chloride 103 mmol/L (98-107); Creatinine, Serum 1.22 mg/dL (0.70-1.30); EST Glomerular Filtration Rate 63 mL/min (>60); Est Glom Filt Rate - Afr Amer 76 mL/min (>60); Estimated Creatinine Clearance 60.67 ml/min; Glucose 124 mg/dL (74-106); Sodium Level 136 mmol/L (136-145)
--- NOTE | 2020-01-20 13:20 | ED.DEP ---
ED Disposition - Plan for ED Patient: Instructions: ED Back Spasm, No Trauma, ED Back Pain (Acute or Chronic) Prescriptions: Oxycodone HCl/Acetaminophen [Percocet 5/325] 1 tab PO Q6H PRN PRN 5 Days #20 tab PRN Reason: Pain Score 4-10 Prescription Printed Referrals: NOT,DEFINED [NON-STAFF] - Dottie Sanchez MD [STAFF PHYSICIAN] - 3-5 Days
[2020-01-20 13:28] VITALS: PULSE 60; RESP 12; O2SAT 98
== END 2020-01-20 13:28 | disposition home or self-care (01) ==
LOC: ED 12:23
PROVIDERS: Emergency Provider Emergency Medicine
DX: M54.5 Low back pain (principal); G89.29 Other chronic pain; I10 Essential (primary) hypertension; J44.9 Chronic obstructive pulmonary disease, unspecified; Z92.3 Personal history of irradiation; Z92.21 Personal history of antineoplastic chemotherapy; Z85.118 Personal history of other malignant neoplasm of bronchus and lung; Z79.899 Other long term (current) drug therapy
CPT/HCPCS: 74176; 80048; 85025; 99283; A4216

== ENCOUNTER → 2020-01-27 15:13 | Outpatient (CLI) | payer MEDICARE, MEDICAID, SELFPAY ==
[2019-09-10 14:14] VITALS: BMI 26.7
[2020-01-27 12:18] VITALS: BMI 26.6
--- NOTE | 2020-01-27 15:17 | RAD_ITS ---
STUDY: X-RAY - LUMBAR SPINE REASON FOR EXAM: Male, 69 years old. Pain in entire spine. Patient states no known recent or hx of an injury. TECHNIQUE: 3 view(s) of the lumbar spine were obtained. COMPARISON: None FINDINGS: Normal lumbar lordosis. There is moderate levo scoliosis. There is a normal alignment of the vertebrae. No evidence for acute fracture or subluxation.. There is narrowing of L4-5 and L5-S1 disc spaces with endplate sclerosis and intervertebral disc degeneration. The soft tissue structures are unremarkable. RAD/Lumbar Spine 2 or 3 Views IMPRESSION: Scoliosis and degenerative changes. No acute fracture or other significant bony pathology Electronically Signed: Aníbal Bashir MD at 22:41 EST , Service support ,
--- NOTE | 2020-01-27 15:17 | RAD_ITS ---
STUDY: X-RAY - THORACIC SPINE REASON FOR EXAM: Male, 69 years old. Pain in entire spine. Patient states no known recent or hx of an injury. TECHNIQUE: 4 view(s) of the thoracic spine were obtained. COMPARISON: Chest radiograph 07/23/2019 FINDINGS: Normal kyphosis of the thoracic spine. There is no substantial scoliosis. No evidence for acute fracture or subluxation. No well-defined lytic or sclerotic bony lesions are present. There is multilevel disc space narrowing and endplate spurring. Diffuse reticular nodular interstitial thickening is seen within the right upper lobe which is a new finding since prior study possibly due to inflammatory changes. The soft tissue structures are unremarkable. RAD/Thoracic Spine 2 Views IMPRESSION: Moderate degenerative changes. No evidence for acute fracture or other significant bony pathology Incidental finding of reticulonodular interstitial thickening in the right upper lobe which is new finding since prior study possibly due to inflammatory changes. Clinical correlation recommended. Electronically Signed: Aníbal Bashir MD at 16:24 EST , Service support ,
--- NOTE | 2020-01-27 15:23 | RAD_ITS ---
STUDY: X-RAY - CERVICAL SPINE REASON FOR EXAM: Male, 69 years old. Lots of pain in entire spine per patient. No known recent or known injury. TECHNIQUE: 5 view(s) of the cervical spine were obtained. COMPARISON: None FINDINGS: Normal anterior atlantoaxial articulation. Normal odontoid process. Normal cervical lordosis. There is moderate levoscoliosis or cysts torticollis secondary to muscle spasm there is narrowing of C4-5, C5-6 and C6-7 disc spaces with mild endplate spurring.. No well-defined lytic or sclerotic bony lesions are evident. Incidental finding of probable chronic interstitial changes in the right upper lobe. RAD/Cerv Spine 2 or 3 Views IMPRESSION: Scoliosis and degenerative changes. No acute fracture or other significant bony pathology. Electronically Signed: Aníbal Bashir MD at 16:21 EST , Service support ,
== END ==
PROVIDERS: Referring Provider Anesthesiology Pain Medicine; Visit Provider Anesthesiology Pain Medicine
DX: M54.9 Dorsalgia, unspecified (principal)
CPT/HCPCS: 72040; 72070; 72100

== ENCOUNTER → 2020-02-03 10:22 | Outpatient (CLI) | payer MEDICARE, MEDICAID, SELFPAY ==
[2019-09-10 14:14] VITALS: BMI 26.7
[2020-01-27 12:18] VITALS: BMI 26.6
--- NOTE | 2020-02-03 10:23 | NM_ITS ---
CLINICAL: 69-year-old male with reported history of carcinoma of the lung. WHOLE BODY 99m Tc MDP RADIONUCLIDE BONE SCINTIGRAPHY COMPARISON: Previous whole body bone scintigraphy study dated 09/08/2019 FINDINGS: Following the intravenous administration of 26.2 mCi of 99m Tc MDP, whole body bone images reveal: 1. Increased radiopharmaceutical concentration is currently multifocally apparent in the axial skeletal structures to include multiple bilateral ribs, the 10th and 11th thoracic vertebra, first-second and fifth lumbar vertebra, the left proximal femoral diaphysis, the right mandible, the vertex parietal and right occipital calvarium. 2. Facilitated tracer uptake is defined in the left wrist, the acromioclavicular compartments of both shoulders, the right knee. 3. The remaining skeletal structures are scintigraphically unremarkable with normal-appearing renal images and urinary bladder activity identified. NM/Bone Scan Whole Body IMPRESSION: 1. The increase in radiopharmaceutical concentration currently defined in the axial skeletal structures, right-left calvarium, the right mandible and left proximal femur is consistent with osteoblastic turnover attributed to skeletal metastatic disease. 2. Degenerative arthritis appears currently expressed in the left wrist, bilateral shoulders and right knee articulation. 3. Overall compared to the previous whole body bone scintigraphy study dated 09/08/2019, there is interim development of multifocal osseous metastasis. Electronically Signed: Reinaldo Jacobs DO at 22:17 EST Tel , Service support ,
== END ==
PROVIDERS: Referring Provider Internal Medicine Hematology & Oncology; Visit Provider Internal Medicine Hematology & Oncology
DX: C34.90 Malignant neoplasm of unspecified part of unspecified bronchus or lung (principal); C77.9 Secondary and unspecified malignant neoplasm of lymph node, unspecified
CPT/HCPCS: 78306

== ENCOUNTER → 2020-02-04 12:31 | Outpatient (CLI) | payer MEDICARE, MEDICAID, SELFPAY ==
[2019-09-10 14:14] VITALS: BMI 26.7
[2020-01-22 12:54] VITALS: BMI 26.1
[2020-01-27 12:18] VITALS: BMI 26.6
--- NOTE | 2020-02-04 15:40 | PFTCOMP ---
COMPLETE PULMONARY FUNCTION TEST INTERPRETATION Brief HPI: Patient is a 69 year old male, currently under the care of Dr. Romo, who presents to [facility] for complete pulmonary function tests secondary to diagnosis of COPD. Respiratory therapist reports good effort and reproducible results. Interpretation: Forced expiration spirometry shows a moderately severe large airways obstructive ventilatory defect with an FEV1 of 54% predicted. There is no significant bronchodilator response by strict ATS criteria. Spirograms are of good quality and plateau slowly, indicating slowly emptying areas of the lungs. The respiratory flow volume loop shows decreased expiratory flow rates at all lung volumes consistent with airway obstruction. Lung volumes by body plethysmography show a decreased total lung capacity at 4.26 L, 67% predicted. All other lung volumes are reduced symmetrically. Diffusion capacity by carbon monoxide is decreased at 45% predicted. The airway resistance is elevated. No previous pulmonary function tests were available for review. Impression: Irreversible moderately severe mixed ventilatory defect with a dissymmetric reduction in diffusion capacity
== END ==
PROVIDERS: Referring Provider Internal Medicine Critical Care Medicine; Visit Provider Internal Medicine Critical Care Medicine
DX: J44.9 Chronic obstructive pulmonary disease, unspecified (principal)
CPT/HCPCS: 94060; 94726; 94729

== ENCOUNTER → 2020-02-10 12:25 | Outpatient (CLI) | payer MEDICARE, MEDICAID, SELFPAY ==
[2019-09-10 14:14] VITALS: BMI 26.7
[2020-01-22 12:54] VITALS: BMI 26.1
[2020-01-27 12:18] VITALS: BMI 26.6
[2020-02-10 12:48] VITALS: PULSE 100; PULSE 104; PULSE 106; PULSE 109; PULSE 110; PULSE 97; PULSE 99; O2SAT 90; O2SAT 91; O2SAT 93; O2SAT 95
--- NOTE | 2020-02-11 08:46 | PCM.PSN.6M ---
PSN 6 Minute Walk Test - 6 Minute Walk Test 6 Minute Walk Test: 6 Minute Walk Test PSN:6-Minute Walk Test Start: 02/10/20 12:48 Freq: Status: Active Protocol: RESP.6MINW Document 02/10/20 12:48 YULY (Rec: 02/10/20 12:50 YULY [id number]) 6 Minute Walk Test Date Performed 02/10/20 Time Performed 12:30 Height 5 ft 9 in Weight: 175 lb Weight in Pounds 175.[address]: Awais Romo Assistive device used: None Pre-test Oxygen Delivery Method Room Air Pulse Ox (%) 93 Pulse Rate (60-100 beats/min) 97 Dyspnea Darrell Scale (0-10) 0.5 Exertion Darrell Scale (6-20) 6 1st minute Oxygen Delivery Method Room Air Pulse Ox (%) 91 Pulse Rate (60-100 beats/min) 100 2nd minute Oxygen Delivery Method Room Air Pulse Ox (%) 90 Pulse Rate (60-100 beats/min) 104 H 3rd minute Oxygen Delivery Method Room Air Pulse Ox (%) 91 Pulse Rate (60-100 beats/min) 106 H 4th minute Oxygen Delivery Method Room Air Pulse Ox (%) 91 Pulse Rate (60-100 beats/min) 109 H 5th minute Oxygen Delivery Method Room Air Pulse Ox (%) 91 Pulse Rate (60-100 beats/min) 109 H 6th minute Oxygen Delivery Method Room Air Pulse Ox (%) 91 Pulse Rate (60-100 beats/min) 110 H Dyspnea Darrell Scale (0-10) 3 Exertion Darrell Scale (6-20) 13 Post-test Oxygen Delivery Method Room Air Pulse Ox (%) 95 Pulse Rate (60-100 beats/min) 99 Full Laps Walked 18 Partial Lap, Number of Tiles Walked 5 Total Distance Walked (ft) 1067 - Interpretation Interpretation: The patient ambulated 1067 feet over the course of 6 minutes beginning on room air without assistive devices or breaks. Pretesting oxygen saturation was noted to be 93% on room air. With ambulation, the annalisa oxygen saturation was 90%. There was no significant exertional oxygen desaturation. - Recommendations Recommendations: There is no indication for the use of supplemental oxygen at this time.
== END ==
PROVIDERS: Referring Provider Internal Medicine Critical Care Medicine; Visit Provider Internal Medicine Critical Care Medicine
DX: J44.9 Chronic obstructive pulmonary disease, unspecified (principal)
CPT/HCPCS: 94618

== ENCOUNTER → 2020-02-12 | Outpatient (CLI) | payer MEDICARE, MEDICAID, SELFPAY ==
[2019-09-10 14:14] VITALS: BMI 26.7
[2020-01-27 12:18] VITALS: BMI 26.6
[2020-02-12 17:38] LABS: Amphetamine Urine VISTA NEGATIVE (<1000 ng/mL); Barbiturate Urine VISTA NEGATIVE (< 200 ng/mL); Benzodiazepine Urine VISTA NEGATIVE (< 200 ng/mL); Cocaine Urine VISTA NEGATIVE (< 300 ng/mL); Ecstacy Urine VISTA NEGATIVE (< 500 ng/mL); Methadone Urine VISTA NEGATIVE (< 300 ng/mL); PCP Urine VISTA NEGATIVE (< 25 ng/mL); THC Urine VISTA POSITIVE (< 50 ng/mL); Vista UDS pH Range 6
== END | disposition home or self-care (01) ==
LOC: LAB 16:49 → LABSPEC 02-13 07:55
PROVIDERS: Visit Provider Anesthesiology Pain Medicine
DX: F11.20 Opioid dependence, uncomplicated (principal)
CPT/HCPCS: 80307

== ENCOUNTER 2020-02-25 11:00 | Outpatient (RCR) | payer MEDICARE, MEDICAID, SELFPAY ==
[2019-09-10 14:14] VITALS: BMI 26.7
[2020-01-27 12:18] VITALS: BMI 26.6
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
--- NOTE | 2020-02-25 11:50 | HP.PTREVAL ---
Dr. Sigifredo Brown MD, It has been my pleasure to treat DIMAS CRAWLEY over the last 2 visits for BACK PAIN. Please see the progress note below for an update on the physical therapy plan of care! Subjective: PATIENT REPORTS HE HAD A FOLLOW UP WITH HIS ONCOLOGIST AND HE THINKS HE HAS CANCER IN HIS SPINE. STATES HE HAS AN MRI AND PET SCAN SCHEDULED 03/02 AND 03/03/20. PATIENT REPORTS THE ONCOLOGIST TOLD HIM NO STRETCHING, NOTHING STRENUOUS, NO MASSAGE, NO INJECTIONS AND NO CHIROPRACTOR. PAIN MGMT PENDING TOMORROW FOR PAIN MEDICATION. PATIENT REPORTS THE ONCOLOGIST TOLD HIM LIGHT AEROBIC EX IS ABOUT ALL HE WOULD RECOMMEND RIGHT NOW. Objective/Function: PATIENT WITH PAIN, FATIGUE AND SOB UPON ARRIVAL. HE REPORTS WANTING TO COME TO PT TODAY TO DISCUSS ONCOLOGY FOLLOW UP AND DISCUSS PT MOVING FORWARD. THIS PT RECOMMENDS HOLDING PT AND PATIENT IS VERY MUCH IN AGREEMENT. PATIENT MAY BENEFIT FROM PT IN THE FUTURE FOR ROM, STRETCHING AND STRENGTHENING ONCE CLEARED TO DO SO BY ONCOLOGY. Plan Plan: HOLD PT. PATIENT AGREEABLE. PATIENT TO CONTACT US WITH ORDER TO CONTINUE PT WHEN APPROPRIATE. HOLD CHART 2 WEEKS. Goals Goal 1:: DECREASE C/O BACK PAIN (ESPECIALLY THORACIC PAIN). Goal Time Frame: 4-6 Weeks Goal 2:: IMPROVE PERSONAL CARE, LIFTING, STANDING, SLEEP, SOCIAL LIFE, TRAVEL AND HOMEMAKING FUNCTION. Goal Time Frame: 4-6 Weeks Goal 3:: INSTRUCT IN PROPHYLAXIS Goal Time Frame: 4-6 Weeks Anticipated Interventions Patient/Client Instruction: Educate patient on: Condition, Plan of Care, Risk Factors, Benefits of Fitness Program For the Purpose of:: To improve self management Therapeutic Exercise to Include: Strength training, Body mechanics, Postural training, Flexibilty training, Neuromotor development, Dynamic Lumbar Stabilization For the Purpose of:: To decrease pain, To increase ROM, To improve muscle performance and motor function, To increase tolerance to activity/condition/position, To improve ability of physical actions for home/community/work/leisure Please do not hesitate to contact me at [phone] by phone or if you have questions or concerns regarding this new plan of care! Sincerely, Verito Aguilar, PT, Cert MDT
== END 2020-02-25 19:00 | disposition home or self-care (01) ==
LOC: PT 11:00
PROVIDERS: Referring Provider Anesthesiology Pain Medicine; Visit Provider Anesthesiology Pain Medicine
DX: M54.9 Dorsalgia, unspecified (principal)
CPT/HCPCS: 97112; 97162; 97530

== ENCOUNTER → 2020-03-10 11:57 | Outpatient (CLI) | payer MEDICARE, MEDICAID, SELFPAY ==
[2019-09-10 14:14] VITALS: BMI 26.7
[2020-02-24 11:45] VITALS: BMI 26.2
--- NOTE | 2020-03-10 11:58 | MRI_ITS ---
STUDY: MRI THORACIC SPINE WITHOUT CONTRAST REASON FOR EXAM: Male, 69 years old patient with severe back pain with known metastases. TECHNIQUE: Standardized fat and water weighted pulse sequences were obtained in the sagittal and axial planes. COMPARISON: Bone scan dated 02/03/2020. FINDINGS: There is an increased kyphosis of the thoracic spine. There is no substantial scoliosis. T1-2, T2-3, T3-4, T4-5, T5-6, T6-7, T7-8, T8-9, T9-10, T10-11, T11-12: There is abnormal signal within the T1, T2, T7, T8, T9, and T10 vertebral segments consistent with metastatic disease. There is some fatty replacement of the marrow that suggests possible sequela of previous radiation therapy. There appears to be some epidural extension of tumor at the T9 and T10 levels causing moderate central canal stenosis. The spinal canal otherwise appears to be patent. The neural foramina are generally patent without evidence for nerve impingement. There is right upper lobe airspace disease versus neoplasm. There may be right-sided hilar mass and lymphadenopathy. Normal visualized thoracic cord. Normal conus medullaris that terminates at the T12-L1 level.. There may be some right-sided pleural thickening. MRI/Spine Thoracic (Routine) IMPRESSION: 1. Multiple metastasis to the thoracic vertebral segments, as described. 2. Some epidural extension of tumor at T9 T10-11 causing moderate central canal stenosis. Electronically Signed: Nelly Diaz MD at 15:37 EST , Service support ,
--- NOTE | 2020-03-10 11:58 | MRI_ITS ---
STUDY: MRI CERVICAL SPINE WITHOUT CONTRAST REASON FOR EXAM: Male, 69 years old patient with severe neck pain with known metastases. TECHNIQUE: Standardized fat and water weighted pulse sequences were obtained in the sagittal and axial planes. Multiple images are limited by patient motion. COMPARISON: PET/CT dated 05/07/2019 and bone scan dated 11/04/2019 FINDINGS: Normal foramen magnum and brainstem-cervical cord junction. Normal craniovertebral junction. Normal anterior atlantoaxial articulation. Normal odontoid process. Normal cervical lordosis. There is abnormal low signal within the C4, C5, C6, C7, T1 and T2 vertebral bodies with decreased T1 and increased T2 signal consistent with metastatic disease. C2-3: Normal endplates. Normal disc height, signal and morphology. Normal central canal and intervertebral neural foramina. C3-4: Normal endplates. Normal disc height, signal and morphology. Normal central canal and intervertebral neural foramina. C4-5: There is narrowing of the disk. There are small endplate osteophytes. There is severe bilateral neural foraminal narrowing with potential nerve root impingement. There is mild central canal stenosis. C5-6: There is narrowing of the disks with small endplate osteophytes. There is a disc bulge and osteophyte complex. There appears to be severe spinal canal narrowing with potential nerve root impingement. Left neural foramen is mildly narrowed. There is mild central canal stenosis. C6-7: There is narrowing of this disc with small endplate osteophytes. There is a moderate left-sided neural foraminal narrowing with potential nerve root impingement. The right neural foramen is mildly narrowed. There is no central canal stenosis. C7-T1: There is narrowing of the disc. There is a disc bulge. The neural foramina are mildly narrowed without evidence for impingement. Normal cervical cord. There is no demonstrated cervical cord syrinx cavity. Normal visualized soft tissue structures. MRI/Spine Cervical (Routine) IMPRESSION: 1. Multiple metastases. 2. Multilevel degenerative disc disease and degenerative arthropathy of the cervical spine with neural foraminal narrowing and potential nerve impingement, as described. Electronically Signed: Nelly Diaz MD at 15:50 EST , Service support ,
--- NOTE | 2020-03-10 11:58 | MRI_ITS ---
STUDY: MRI LUMBAR SPINE WITHOUT CONTRAST REASON FOR EXAM: Male, 69 years old patient with severe back pain. Patient has known skeletal metastases. TECHNIQUE: Standardized fat and water weighted pulse sequences were obtained in the sagittal and axial planes. Several images are limited by patient motion. The disc as showing normal signal and morphology. The neural foramina are patent. There is no central canal stenosis. COMPARISON: Bone scan dated 02/03/2020 and radiographs of the lumbar spine dated 01/27/2020. FINDINGS: T12-L1: There is abnormal signal within the L1 vertebral body with abnormal enhancement consistent with metastatic disease. Normal lumbar lordosis. There is no substantial scoliosis. Normal conus medullaris that terminates at the T12-L1 level. L1-2: There is abnormal signal within both L1 and L2 vertebral bodies with abnormal enhancement. There is a pathologic compression central aspect of L2 with almost 90% compression. This also causes the disc to have increased height. There is mild central canal stenosis secondary to posterior displacement of the posterior margin of L2 probably related to fracture. Neural foramina are narrowed without evidence of nerve impingement. L2-3: There is mild annular disk bulge and osteophyte complex. There is mild degenerative arthropathy of the facet joints. Bilateral neuroforamina are narrowed without MR evidence for nerve impingement. There is no significant acquired central canal stenosis. There is a focus of abnormal signal within the L3 vertebral body that may represent a metastasis. L3-4: There is mild annular disk bulge and osteophyte complex. There is mild degenerative arthropathy of the facet joints. Bilateral neuroforamina are narrowed without MR evidence for nerve impingement. There is no significant acquired central canal stenosis. L4-5: There is narrowing of the disc. There is a broad central disc protrusion. There is mild degenerative arthropathy of facet joints. There is thickening of the ligamentum flavum. Neural foramina are severely narrowed greater on the right with potential nerve root impingement of the right L4 nerve root. There is abnormal signal within the L4 and L5 vertebral bodies that may represent additional metastasis. L5-S1: There is narrowing of the disc. There is mild annular disk bulge and osteophyte complex. There is mild degenerative arthropathy of the facet joints. Bilateral neuroforamina are narrowed with MR evidence for left-sided L5 nerve impingement. There is no significant acquired central canal stenosis. There is abnormal signal in the right sacrum in particular consistent with additional metastatic disease. This has decreased T1 signal which enhances after intravenous administration of contrast. Normal visualized paraspinous soft tissue structures. 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 MRI/Spine Lumbar (Routine) IMPRESSION: 1. Metastatic lesions to multiple lumbar vertebral bodies and sacrum. 2. Probable pathologic compression fracture of L2. 3. Multilevel degenerative disc disease and degenerative arthropathy of the lumbar spine with neuroforaminal narrowing and central canal stenosis with potential nerve root impingement, as described. Electronically Signed: Nelly Diaz MD at 15:26 EST , Service support ,
== END ==
PROVIDERS: Referring Provider Internal Medicine Hematology & Oncology; Visit Provider Internal Medicine Hematology & Oncology
DX: C77.9 Secondary and unspecified malignant neoplasm of lymph node, unspecified (principal); C34.90 Malignant neoplasm of unspecified part of unspecified bronchus or lung; C7A.8 Other malignant neuroendocrine tumors; M54.9 Dorsalgia, unspecified; G89.29 Other chronic pain; R91.8 Other nonspecific abnormal finding of lung field
CPT/HCPCS: 72141; 72146; 72148

== ENCOUNTER → 2020-03-16 | Outpatient (CLI) | payer MEDICARE, MEDICAID, SELFPAY ==
[2019-09-10 14:14] VITALS: BMI 26.7
[2020-02-24 11:45] VITALS: BMI 26.2
--- NOTE | 2020-03-16 | MISC_PTH ---
PATIENT: DIMAS CRAWLEY [facility]: [facility] U#:[id number] AGE/SX: 69/M ROOM: RE03/16/[address]: Dr. Sigifredo Brown MD : 1950 BED: DIS: 03/16/2020 SPEC #: [id number] RECD: 03/16/20 16:06 STATUS: MACHELLE ELISA #: [id number] ELOY: 03/16/20 00:[address]: Sigifredo Brown DEPT: SURGICAL PATHOLOGY RECD BY: Mik Melendez Tissues: Vertebra, NOS Procedures: Decalcification bone/plaque Surgery Specimen Level IV HEADER OPERATION: Kyphoplasty PRE-OP DIAGNOSIS: Fracture L2 TISSUE SUBMITTED: L2 MICROSCOPIC DIAGNOSIS L2 fracture, biopsy: Metastatic neuroendocrine carcinoma, high proliferation index. See comment. AM:phillip 03/18/2020 COMMENT Immunohistochemistry ([id number]) supports the above diagnosis and favors a lung primary. MICROSCOPIC DESCRIPTION Slides are reviewed. GROSS DESCRIPTION Received in fixative is one container labeled with the patient's name and designated L2. The specimen consists of multiple irregular fragments of red-thorpe soft tissue that in aggregate measure 3 x 2 x 0.2 cm. The specimen is totally submitted in one cassette after decalcification. / AM:phillip 03/17/20 TC:0 CPT: 83398, 13399
--- NOTE | 2020-03-16 | IMM_PTH ---
PATIENT: DIMAS CRAWLEY LOC: [facility] U#:[id number] AGE/SX: 69/M ROOM: RE03/16/[address]: Dr. Sigifredo Brown MD : 1950 BED: DIS: 03/16/2020 SPEC #: [id number] RECD: 03/18/20 11:17 STATUS: MACHELLE REQ #: [id number] ELOY: 03/16/20 00:[address]: Sigifredo Brown DEPT: IMMUNOHISTOCHEMISTRY RECD BY: Jody Lester Tissues: Vertebra, NOS Procedures: Synapto (add) NAPSIN A (add) CD45 (add) CD56 (add) CHROMO (add) CK20 (add) CK7 (add) CK8 (add) KI-67 (add) P53 (add) TTF1 (add) Pankeratin (initial) PSAP (add) NSE (add) S-100 (add) PHYSIC[facility] INSTIT[facility] [address] [address] SPECIMEN INFORMATION: Tissue Source: L2 Clinical Info: L2 fracture Specimen Number: [id number] CPT code: 86501, 67095 x14 METHODOLOGY: Deparaffinized sections of prefer/formalin-fixed tissue or PAP/DQ stained slides are incubated with monoclonal/polyclonal antibodies/oligonucleotide probes. Localization is made via biotin free immunoperoxidase method. Appropriate controls are performed and reacted as expected. Results on target cell population are indicated in the following table: RESULTS: ANTIBODY / CLONE RESULT AE1-3 (AE1/AE3/PCK26) positive CK7 (OV-TL12/30) positive CK8 (84uqffV86) positive CK20 (KS20.8) negative CD45 (RP2/18) negative S-100 (4C4.9) negative CD56 (123C3.D5) positive Chromo (LK2H10) positive Synapto (polyclonal) positive NSE Neuron Specific Enolase positive TTF-1 (8G7G3/1) positive Napsin A (Rabbit Polyclonal) negative PSAP (PASE/4LJ) negative P53 (DO-7) positive, 75% Ki-67 (30-9) positive, >90% These tests were developed and their performance characteristics determined by [facility]. They may not have been cleared or approved by the U.S. Food and Drug Administration. The FDA has determined that such clearance or approval is not necessary. The above immunohistochemical/dualISH markers are ordered and reviewed by the Pathologist. INTERPRETATION: L2 fracture, biopsy: Metastatic neuroendocrine carcinoma. See comment. AM:phillip 03/19/2020 Comment: The tumor has a high proliferative index. A lung primary is favored. Clinical correlation is necessary.
== END | disposition home or self-care (01) ==
LOC: LABSPEC 16:16
PROVIDERS: Referring Provider Anesthesiology Pain Medicine; Visit Provider Anesthesiology Pain Medicine
DX: S32.029A Unspecified fracture of second lumbar vertebra, initial encounter for closed fracture (principal)
CPT/HCPCS: 88305; 88311; 88341; 88342

== ENCOUNTER → 2020-03-18 14:50 | Outpatient (CLI) | payer MEDICARE, MEDICAID, SELFPAY ==
[2019-09-10 14:14] VITALS: BMI 26.7
[2020-02-24 11:45] VITALS: BMI 26.2
--- NOTE | 2020-03-18 14:55 | MRI_ITS ---
We are attempting to reach an attending provider to discuss findings. An addendum with communication details will be sent when the communication is complete. STUDY: MRI BRAIN WITH AND WITHOUT CONTRAST REASON FOR EXAM: Male, 69 years old. brain mets, f/u to ct, LUNG CA METS TO BONE TECHNIQUE: Standardized multiplanar fat and water weighted pulse sequences were obtained. IV 15 cc dotarem was administered for the contrast portion of the examination. COMPARISON: None. FINDINGS: There is a heterogeneously enhancing lesion involving the floor of the right middle cranial fossa extending into the wing of the sphenoid anteriorly and laterally into the coronoid process and mandibular condylar head and neck as well as the tension worker space involving the pterygoid muscles. The lesion extends superiorly into the temporal lobe and produces severe vasogenic edema and mass effect upon the right lateral ventricle and third ventricle with [id number] midline shift producing entrapment of the left lateral ventricle which is mildly dilated. The mass measures approximately 4 x 7.8 x 7.4 cm. There are foci of hemosiderin noted within the lesion as well as methemoglobin consistent with hemorrhage There is also a solitary nonenhancing white matter lesion left parietal region without mass effect or restricted diffusion Normal bilateral basal ganglia. Normal thalami. There is no extra-axial fluid accumulation. Normal flow voids within the major intracranial circulation suggesting patency by spin echo criteria. Normal venous enhancement. . Normal sella turcica, pituitary gland, infundibular stalk, optic chiasm and hypothalamus. Normal tectal plate and pineal gland. Normal midbrain, jose angel and medulla. Normal cerebellum. Normal basal cisterns. Normal bilateral temporal bones. Normal bilateral internal auditory canals. No demonstrated orbital abnormality, within the constraints of a routine brain study. Normal visualized paranasal sinuses. Normal calvarium and skull base. Normal visualized soft tissue structures. Normal visualized upper cervical spine. MRI/Brain W/WO Contrast IMPRESSION: Findings consistent with metastatic lesion to the skull base of the right middle cranial fossa with intracranial extension into the right temporal lobe producing extensive vasogenic edema with mass effect upon the right lateral ventricle and midline shift producing dilatation of the left lateral ventricle. The lesion also extends into the right tension worker space involving the pterygoid muscles as well as the coronoid process and condylar neck and head of the right mandible. Electronically Signed: Aníbal Bashir MD at 16:14 EST , Service support ,
== END ==
PROVIDERS: Referring Provider Student in an Organized Health Care Education/Training Program; Visit Provider Student in an Organized Health Care Education/Training Program
DX: C34.90 Malignant neoplasm of unspecified part of unspecified bronchus or lung (principal)
CPT/HCPCS: 70553; A9575

== ENCOUNTER 2020-03-19 15:03 | Observation (INO) | payer MEDICARE, MEDICAID, SELFPAY ==
[2019-09-10 14:14] VITALS: BMI 26.7
[2020-02-24 11:45] VITALS: BMI 26.2
[2020-03-19 15:07] VITALS: BP 134/80; PULSE 90; RESP 20; TEMP 36.5; O2SAT 96; BMI 23.3
--- NOTE | 2020-03-19 15:43 | ED.DCSUM_ITS ---
History of Present Illness Chief Complaint: Dizziness Informant: Patient Onset: Month(s) Narrative: Patient sent in by Secondary to low pulse ox at home. Patient currently lives alone. He states he recently was advised he was in remission from lung cancer. After developing significant back and neck pain he had further imaging that revealed metastases to the spine and most recently to the brain. Patient states he is had neck pain, back pain, and felt lightheaded for the past couple of months. Apparently home health visited his home today for the first time and his pulse ox was reportedly low. Patient does not state that he felt particular short of breath at the time. He does not know what the pulse ox was. Patient does complain that he has difficulty taking care of himself as he is not able to stand for long periods secondary to his back pain. - Past Medical History (1) Bone metastases Status: Chronic (2) Asthma Status: Chronic (3) COPD (chronic obstructive pulmonary disease) Status: Chronic (4) CRF (chronic renal failure) Status: Chronic (5) Diabetes Status: Chronic (6) Hypertension Status: Chronic (7) Lung cancer Status: Chronic Past Medical History - Allergies and Home Meds Allergies/Adverse Reactions: Allergies ether Adverse Reaction (Severe, Verified 03/19/20 15:06) Nausea Primary Care Physician: Care Physician,No Primary [Primary Care Provider] - Prior records reviewed: Yes Surgical History: - Lives: Alone Smoking Status: Former smoker - Family History Maternal Family History: Family History (Last Reviewed 03/18/20 @ 14:14 by Michaela Johnston RN) Brother Sleep apnea Brother Lipid disorder Family History: Reports: Renal Disease Paternal Family History: Family History (Last Reviewed 03/18/20 @ 14:14 by Michaela Johnston RN) Brother Sleep apnea Brother Lipid disorder Family History: Reports: Heart Disease Review of Systems General: Denies: Chills, Fever Eyes: Denies: Visual changes - bilaterally ENT: Denies: Bilateral ear pain Cardiovascular: Denies: Chest pain Respiratory: Denies: Dyspnea Gastrointestinal: Denies: Abdominal pain, Vomiting, Diarrhea Musculoskeletal: Reports: Neck pain, Back pain Neurological: Reports: Weakness. Denies: Headache Hematologic: Denies: Easy bruising, Easy bleeding Allergy: Denies: Uticaria Physical Exam Vital Signs/Narrative: Vital Signs Temp Pulse Resp BP Pulse Ox 03/19/20 15:07 97.7 F L 90 20 H 134/80 H 96 Inital Vital Signs reviewed: Yes General: Well nourished, Well developed Head: Normocephalic Neck: Supple Cardiovascular: Regular rate, Regular rhythm Respiratory: No distress, - - Slight rales bilateral bases Abdomen: Soft, Nontender Extremities: Nontender Skin: Normal color Neurological: Alert, Oriented x3 Psychological: Normal affect Diagnostic/Tx/Re-eval Impressions Chest CTA 03/19/20 17:26 IMPRESSION: No demonstrated PE, or thoracic aortic aneurysm or dissection. However, the contrast bolus is not optimal, and a subtle filling defect could be present particularly in the distal vessels. Underlying emphysema with diffuse air space opacifications of the right upper and right lower lobes with air bronchograms suggesting inflammatory processes, likely combination of atelectasis and infiltrates. There is narrowing of the right mainstem bronchus and right lower lobe bronchus, this has worsened significantly since the previous study and there is associated pleural thickening and a small right pleural effusion Degenerative bony changes There are scattered subcentimeter axillary mediastinal lymph nodes. There is no suspicious enhancing lesion in the hilar regions to suspect neoplasm though a neoplastic process could have this presentation Electronically Signed: Pool Kinsey MD at 18:32 EST , Service support , 03/19/20 17:26 CTA Chest W/WO Contrast [CT] Stat Laboratory Results 03/19/20 03/19/20 03/19/20 16:00 16:00 16:00 WBC 6.9 RBC 4.87 Hgb 11.2 L Hct 38.0 L MCV 78.0 L MCH 23.0 L MCHC 29.5 L RDW Std Deviation 48.3 H RDW Coeff of Hebert 17.2 H Plt Count 252 MPV 10.7 Immature Gran % (Auto) 0.300 Neut % (Auto) 92.5 H Lymph % (Auto) 4.8 L Providence % (Auto) 2.3 Eos % (Auto) 0.0 Baso % (Auto) 0.1 Absolute Neuts (auto) 6.4 Absolute Lymphs (auto) 0.33 L Nucleated RBC % 0 Differential Comment SEE COMMENT Platelet Estimate ADEQUATE RBC Morphology N CHROM Anisocytosis RARE Microcytosis RARE D-Dimer Quant (PE/DVT) 4.28 H* Sodium 139 Potassium 3.8 Chloride 106 Carbon Dioxide 27.0 Anion Gap 6 BUN 23 H Creatinine 0.88 Estim Creat Clear Calc 78.81 Est GFR (MDRD) Af Amer 112 Est GFR (MDRD) Non-Af 92 BUN/Creatinine Ratio 26.2 H Glucose 127 H Calcium 9.6 - Medical Decision Making Patient was observed on court recording monitor throughout his ED stay. O2 sats have been in the mid to high 90s throughout his stay. I did find a note from his home health caregiver that called in and apparently his pulse ox was reading in the low 80s at home. Patient does raise significant concern about living alone and not being able to care for himself. I did have social work meet with the patient. They also have concerns with the patient caring for himself this weekend. They state the patient needs to decide if he wishes to go to an ECF versus assisted living versus home with home health. At this time I do not feel safe sending him home and he will be admitted for further evaluation as well as evaluation by physical therapy to ensure he is safe. ED Disposition - Plan for ED Patient: Disposition: [facility] Diagnosis: Generalized weakness, Metastatic lung cancer (metastasis from lung to other site) Referrals: Care Physician,No Primary [Primary Care Provider] -
[2020-03-19 16:21] LABS: Absolute Lymphocyte Count 0.33 X10^3/uL (0.83-4.51); Absolute Neutrophil Count 6.4 X10^3/uL (2.0-7.7); Basophil# 0.01 X10^3/uL; Basophil% 0.1 % (0-1); Hemoglobin 11.2 g/dL (13.0-16.5); Lymphocyte # 0.33 X10^3/ul (4.0); Lymphocyte % 4.8 % (19-41); Mean Corp Hgb Conc 29.5 g/dL (32-36); Mean Platelet Vol. 10.7 fl (6.2-12.0); Monocyte# 0.16 X10^3/uL; Monocyte% 2.3 % (0-10); NRBC Flagged by Analyzer 0 % (0-5); Neutrophil # 6.37 X10^3/uL (2.7-7.7); Neutrophil % 92.5 % (47-70); POSITIVE DIFFERENTIAL YES; Platelet Count 252 K/mm3 (150-450); RBC Distribution Width CV 17.2 % (11.6-14.6); RBC Distribution Width SD 48.3 fl (35.1-43.9); Red Blood Count 4.87 M/mm3 (4.6-6.2); White Blood Count 6.9 K/mm3 (4.4-11.0)
[2020-03-19 16:29] LABS: Anion Gap 6 (5-15); BUN 23 mg/dL (7-18); BUN/Creat Ratio 26.2 RATIO (10-20); Calcium,Total 9.6 mg/dL (8.5-10.1); Chloride 106 mmol/L (98-107); Creatinine, Serum 0.88 mg/dL (0.70-1.30); EST Glomerular Filtration Rate 92 mL/min (>60); Est Glom Filt Rate - Afr Amer 112 mL/min (>60); Estimated Creatinine Clearance 78.81 ml/min; Glucose 127 mg/dL (74-106); Potassium 3.8 mmol/L (3.5-5.1); Sodium Level 139 mmol/L (136-145)
[2020-03-19 16:45] LABS: Differential Indicated SCAN CRITERIA MET; POSITIVE COUNT NO; POSITIVE MORPHOLOGY NO
[2020-03-19 17:04] LABS: Anisocytosis RARE; Microcytosis RARE; Platelet Estimate ADEQUATE (ADEQ); Red Cell Morphology N CHROM NORMAL (NORM C&C)
[2020-03-19 17:14] LABS: D-Dimer Quantitative (DVT/PE) 4.28 FEU/ug/m (0.27-0.49)
--- NOTE | 2020-03-19 17:15 | CM.ED ---
Social Work - Emergency Department Reason for consult: Evaluate for resources Referral source: ED physician, Dr. Starks Informant: Patient Summary: Home situation: Patient reports to live alone, that until this last week or so has been getting own groceries, managing own medications, and providing for own ADL's without the aid of assistive devices. Denies having any DME at home. Transportation: Reports was driving until recently and now using [id number] Services: Reports to have a bilingual patient support caseworker through insurance named Tabatha. Reports just had first visit from [facility] today, and it was the nurse who sent patient into the hospital. Reports just met with [facility] this week but declined referral as wants to actively seek treatment. Reports to see Dr. Islas for cancer treatment. Income: Fixed, is on dual [place] [place] medicare and medicaid (so limited income). Family/Supports: Patient has never been , has no children. Has a brother in [facility]. Advanced Directives: Reports My brother knows what I want. Declined in the Emergency Department any interest in getting formal paperwork completed for POAHC or Living Will Stressors: debility and limited function at home, loss of cat 7 months ago (had this cat for 16 years) Assessment: Met with patient in room and introduced to social work role. Patient with flat affect, fair eye contact. Patient willing to talk to executive secretary social welfare and spontaneous in sharing some information. Patient reports having a hard time getting around at home, feeling more weak, and dizzy. Patient reflective on current health conditions, and reports never thought would be in this position to need more help. Patient repeatedly talked of wanting to seek treatment out for his cancer diagnosis, and referred back to past experience of going into remission quickly, and reported belief/hope that current metastases can also be put into remission quickly. Patient reports to at least want to try. Patient is future oriented in that he wants to seek out treatment and wants to attempt to get help. Explored with patient trying to increase services at home, whether a call to insurance claim auditor may be beneficial, adding social work to the [facility] order, as well as getting some home delivered meals set up. Patient agreeable with this, but reports that does not feel like could go home with current functioning, living alone not able to move very well. Patient commented that the [facility] nurse sent patient in for these reasons. Conferred with the ED physician that patient is agreeable to referrals for assistance at home, but that patient is also making comments about debility and difficulty even standing up long enough to get self something to eat. Physician reports will discuss with patient. Patient may benefit from therapy evaluations to help determine needs for aftercare. Plan: Handoff to executive secretary social welfare working on Sunday in case patient is admitted after talking to the doctor. If patient goes home from the ED, will work on MOW referral on Sunday and call the insurance claim auditor to see if there are other services that can be put into place. Patient is active with [facility], addition of social work to [facility] may be of benefit if not already ordered. -KAISER Marion, [employer]ER
--- NOTE | 2020-03-19 17:26 | CT_ITS ---
STUDY: CTA CHEST REASON FOR EXAM: Male, 69 years old. LOW O2, LIGHT HEADED, BACK PAIN. RADIATION DOSAGE (If Supplied By Facility): CTDIvol = ( 5.225 ) mGy, DLP = ( 266.53 ) mGycm TECHNIQUE: The examination was performed with the intravenous administration of IV 100mL Isovue-370. Post-processing of the angiographic images was performed, with multiplanar reformation and 3D reconstruction. Individualized dose optimization techniques were used for this CT. COMPARISON: 12/16/2019 FINDINGS: Left IJ central venous catheter tip in the right atrium. There is limited enhancement of the main pulmonary artery and right and left pulmonary arteries. There is limited enhancement of the bilateral peripheral pulmonary arteries. There is no demonstrated pulmonary embolism. Normal thoracic aorta and visualized great vessels. There is no demonstrated aortic dissection. Normal heart and pericardium. There are scattered subcentimeter axillary, and mediastinal lymph nodes. There is peribronchial thickening. The lungs are hyper expanded, with flattening of the hemidiaphragms. There is underlying emphysema with bleb formation throughout both lung benitez. There is been significant progression of opacification in the right upper and lower lobes since the previous study with air bronchograms noted suggesting inflammatory processes. There is associated pleural thickening which is also worsened since the previous study. No discrete underlying lesion is identified. There is however significant narrowing of the right mainstem bronchus and the right lower lobe bronchus from this inflammatory process. Normal chest wall structures. There are degenerative changes of thoracic spine. Diffuse thickening of the esophagus suggests reflux vaginitis. CT/CTA Chest W/WO Contrast IMPRESSION: No demonstrated PE, or thoracic aortic aneurysm or dissection. However, the contrast bolus is not optimal, and a subtle filling defect could be present particularly in the distal vessels. Underlying emphysema with diffuse air space opacifications of the right upper and right lower lobes with air bronchograms suggesting inflammatory processes, likely combination of atelectasis and infiltrates. There is narrowing of the right mainstem bronchus and right lower lobe bronchus, this has worsened significantly since the previous study and there is associated pleural thickening and a small right pleural effusion Degenerative bony changes There are scattered subcentimeter axillary mediastinal lymph nodes. There is no suspicious enhancing lesion in the hilar regions to suspect neoplasm though a neoplastic process could have this presentation Electronically Signed: Pool Kinsey MD at 18:32 EST , Service support ,
[2020-03-19] MEDS: oxyCODONE 5 MG Tablet PO (18:17)
[2020-03-19 18:18] VITALS: BP 138/91; PULSE 109; RESP 15; O2SAT 96
[2020-03-19 19:43] VITALS: BMI 23.4
--- NOTE | 2020-03-19 19:44 | PCM.HP.STD ---
Problem List (1) Generalized weakness Status: Acute (2) Metastatic lung cancer (metastasis from lung to other site) Status: Acute (3) Malignant cachexia Status: Acute (4) Odynophagia Status: Inactive (5) Dehydration Status: Inactive (6) Cough Status: Chronic (7) Bone metastases Status: Chronic (8) CRF (chronic renal failure) Status: Chronic (9) Lung nodule, multiple Status: Chronic (10) Diabetes Status: Chronic (11) Lung cancer Status: Chronic Qualifiers: (12) Regional lymph node metastasis present Status: Chronic (13) Hypokalemia Status: Chronic Comment: Secondary to antihypertensive treatment (14) Hypertension Status: Chronic (15) COPD (chronic obstructive pulmonary disease) Status: Chronic (16) Asthma Status: Chronic Qualifiers: Asthma severity: moderate Asthma persistence: persistent Asthma complication type: uncomplicated Qualified Code(s): J45.40 - Moderate persistent asthma, uncomplicated (17) Seasonal allergic rhinitis Status: Chronic Qualifiers: Allergic rhinitis trigger: pollen Qualified Code(s): J30.1 - Allergic rhinitis due to pollen (18) Debility Status: Acute History of Present Illness Date of Admission: 03/19/20 Chief Complaint: Inability to care of self The patient is a 69 year old M with a significant history of 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 He reports lightheadedness that makes it difficult for him to stand and to do activities like cooking. Home health saw him on the day of presentation and reportedly his oxygen saturation was low. However at the emergency department his oxygen saturation was in the 90s on room air. Because patient is unable to take care of himself a decision was made for patient to stay at the hospital so that further arrangements can be made. Past Medical History Past Medical History (Chronic Problems): Chronic Problems (Last Reviewed 03/19/20 @ 21:[address] Jerrell Chen MD) Cough (Chronic) Bone metastases (Chronic) CRF (chronic renal failure) (Chronic) Lung nodule, multiple (Chronic) Diabetes (Chronic) Lung cancer (Chronic) Regional lymph node metastasis present (Chronic) Hypokalemia (Chronic) Secondary to antihypertensive treatment Hypertension (Chronic) COPD (chronic obstructive pulmonary disease) (Chronic) Asthma (Chronic) Seasonal allergic rhinitis (Chronic) Medical History: Medical History (Last Reviewed 03/19/20 @ 23:[address] Jerrell Chen MD) Asthma J45.909 Depression F32.9 HEARING LOSS TINNITUS Insomnia G47.00 MEDIPORT LEFT CHEST Neuroendocrine cancer C7A.8 SOB (shortness of breath) R06.02 COPD (chronic obstructive pulmonary disease) J44.9 Chronic back pain M54.9, G89.29 Allergies ether Adverse Reaction (Severe, Verified 03/19/20 15:06) Nausea Home Medications: Ambulatory Orders Medication Instructions Recorded Albuterol Sulfate [Albuterol 1 - 2 puff IH Q4H PRN PRN 07/23/19 Sulfate HFA] Escitalopram Oxalate [Lexapro] 10 mg PO DAILY 07/23/19 Fluticasone 0.05% [Flonase Nasal 2 spray NASAL DAILY PRN PRN 07/23/19 [place]] Naproxen Sodium [Aleve] 220 - 440 mg PO DAILY PRN PRN 07/23/19 [place]-3/Dha/Epa/Fish Oil [[facility] Fish 1 cap PO TID 07/23/19 Oil 1,000 mg Softgel] Loratadine 10 mg PO DAILY 10/01/19 budesonide-formoterol HFA 160 2 puff INHALATION BID #10.2 g 01/22/20 mcg-4.5 mcg/actuation aerosol inhaler tiotropium bromide 2.5 2 puff INHALATION QDAY #4 g 01/22/20 mcg/actuation mist for inhalation Oxycodone HCl/Acetaminophen 2 tab PO Q8H PRN PRN 03/09/20 [Percocet 5/325] Aspirin E.C. [Ecotrin] 325 mg PO DAILY PRN PRN 03/19/20 Baclofen 5 mg PO BID 03/19/20 Dexamethasone [Decadron] 4 mg PO BID 03/19/20 Montelukast Sodium 10 mg PO DAILY 03/19/20 Oxycodone HCl 10 mg PO TID 03/19/20 Sitagliptin Phosphate [Januvia] 50 mg PO DAILY 03/19/20 Surgical History: Surgical History (Last Reviewed 03/19/20 @ 23:[address] Jerrell Chen MD) History of hernia repair Z98.890, Z87.19 AT AGE 15 History of lung biopsy . History of nasal surgery 2014 Surgical History: - Lives: Alone Smoking Status: Former smoker Tobacco Use: Non-smoker - *Family History Maternal Family History: Family History (Last Reviewed 03/19/20 @ 23:[address] Jerrell Chen MD) Brother Sleep apnea Brother Lipid disorder History Items: Renal Disease Paternal Family History: Family History (Last Reviewed 03/19/20 @ 23:[address] Jerrell Chen MD) Brother Sleep apnea Brother Lipid disorder History Items: Heart Disease Review of Systems Constitutional: Reports: Weakness, Fatigue. Denies: Chills, Fever, Weight Change HEENT: Denies: Head Aches, Sinus Congestion, Sinus Drainage Cardiovascular: Denies: Chest Pain, Palpitations Respiratory: Reports: Cough - Chronic, Shortness of Breath - Chronic. Denies: Shortness of breath at rest, Sputum production Gastrointestinal: Denies: Abdominal Pain, Nausea, Vomiting Genitourinary: Denies: Dysuria Musculoskeletal: Denies: Joint Pain, Joint Tenderness Skin: Denies: Rash, Wounds Neurological: Denies: Numbness, Tingling, Focal weakness Psychiatric: Denies: Anxiety, Depression, Homicidal Ideations, Suicidal Ideations Hematologic/ Lymphatic: Denies: Easy Bruising, Easy Bleeding VTE Information - Inpt Only VTE Present on Admission: No VTE Mechan Device Prophylaxis: None VTE Pharm Prophylaxis ordered?: Yes Patient Problems: Active and Suspected Problems (Last Reviewed 03/19/20 @ 21:[address] Jerrell Chen MD) Generalized weakness (Acute) Metastatic lung cancer (metastasis from lung to other site) (Acute) Debility (Acute) Malignant cachexia (Acute) - Physical Exam Vitals/I&O's: Vital Signs Temp Pulse Resp BP Pulse Ox 97.7 F L 109 H 15 138/91 H 96 03/19/20 15:07 03/19/20 18:18 03/19/20 18:18 03/19/20 18:18 03/19/20 18:18 Oxygen Delivery Method Room Air Weight: 69.7 kg Body Mass Index (BMI) 23.3 Finger Stick Blood Glucose 341 General: Alert, Oriented x3, Cooperative HEENT: Atraumatic, PERRLA, EOMI, Normocephalic Neck: Supple, No JVD, Negative Carotid Bruits Lungs: Rhonchi Cardiovascular: Regular rate, No murmurs Abdomen: Bowel Sounds Present, Soft, Non Tender Extremities: No edema, Capillary Refill Less than 3 Seconds Skin: No rashes, No breakdown Musculoskeletal: No Tenderness to Palpation of Joints or Extremities Neurological: Cranial nerves II-XII grossly intact Psych/Mental Status: Normal Affect, Appropriate Laboratory Results 03/19/20 16:00: WBC 6.9, RBC 4.87, Hgb 11.2 L, Hct 38.0 L, MCV 78.0 L, MCH 23.0 L, MCHC 29.5 L, RDW Std Deviation 48.3 H, RDW Coeff of Hebert 17.2 H, Plt Count 252, MPV 10.7, Immature Gran % (Auto) 0.300, Neut % (Auto) 92.5 H, Lymph % (Auto) 4.8 L, [place] % (Auto) 2.3, Eos % (Auto) 0.0, Baso % (Auto) 0.1, Absolute Neuts (auto) 6.4, Absolute Lymphs (auto) 0.33 L, Nucleated RBC % 0, Differential Comment SEE COMMENT, Platelet Estimate ADEQUATE, RBC Morphology N CHROM, Anisocytosis RARE, Microcytosis RARE 03/19/20 16:00: D-Dimer Quant (PE/DVT) 4.28 H* 03/19/20 16:00: Sodium 139, Potassium 3.8, Chloride 106, Carbon Dioxide 27.0, Anion Gap 6, BUN 23 H, Creatinine 0.88, Estim Creat Clear Calc 78.81, Est GFR (MDRD) Af Amer 112, Est GFR (MDRD) Non-Af 92, BUN/Creatinine Ratio 26.2 H, Glucose 127 H, Calcium 9.6 Current Medications Acetaminophen (Acetaminophen 325 Mg Tablet) 650 mg PO Q6H PRN PRN PRN Reason: Pain 1-10 or Fever Oxycodone HCl (Oxycodone 5 Mg Tablet) 5 mg PO Q6H PRN PRN PRN Reason: Pain Score 6-10 Assessment/Plan All Active Problems (Last Reviewed 03/19/20 @ 21:[address] 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 Adult failure to thrive; debility and generalized weakness PT and OT work with patient Case management consult. COPD With rhonchi but stable Breathing treatments ordered. Malignant cachexia Dietitian consult Ensure Enlive ordered. Metastatic lung cancer to bone On Decadron; continued Continue home oxycodone. Diabetes mellitus Blood glucose is mildly elevated. Was recently started on Decadron for metastatic cancer. Accu-Chek QACHS ordered. DVT prophylaxis Subcutaneous Lovenox ordered. OBSV E&M: [id number] Initial observation care L2
[2020-03-19 19:56] VITALS: BP 112/59; PULSE 82; RESP 22; TEMP 37; O2SAT 94
--- NOTE | 2020-03-19 20:32 | PCS.PANDOC ---
PANDEMIC DOCUMENTATION INITIATED: Date: 03/19/2020 Time: 2030
[2020-03-19 20:45] VITALS: BMI 22.8
[2020-03-19 20:53] VITALS: BP 100/70; PULSE 84; RESP 18; TEMP 36.6; O2SAT 97
[2020-03-19 20:54] VITALS: BMI 22.8
[2020-03-19] MEDS: Albuterol 2.5 MG/3 ML VIAL.NEB. INHALATION (21:25)
[2020-03-19 21:27] VITALS: PULSE 103; RESP 12
[2020-03-19 21:31] VITALS: O2SAT 90
[2020-03-19] MEDS: Ondansetron 4 MG/2 ML Vial IV (21:54)
[2020-03-19] MEDS: 0.9% Saline Lock 10 ML Syringe IV (21:54)
[2020-03-19] MEDS: Acetaminophen 325 MG Tablet 650 MG PO (21:55)
[2020-03-19] MEDS: oxyCODONE 5 MG Tablet 10 MG PO (21:55)
[2020-03-19] MEDS: dexAMETHasone 4 MG Tablet PO (21:55)
[2020-03-19] MEDS: Enoxaparin 40 MG/0.4 ML Syringe SC (21:56)
[2020-03-19] MEDS: MELATONIN 3 MG TABLET PO (21:57)
[2020-03-20] VITALS (9 sets, daily range): BP systolic 95–127; BP diastolic 52–70; PULSE 74–102; RESP 18–24; TEMP 36.4–37.3; O2SAT 88–96; BMI 22.8
[2020-03-20] MEDS: oxyCODONE 5 MG Tablet 10 MG PO ×3 (06:08→20:06)
[2020-03-20] MEDS: Acetaminophen 325 MG Tablet 650 MG PO ×2 (06:08→19:02)
[2020-03-20] MEDS: 0.9% Saline Lock 10 ML Syringe IV ×2 (06:09→20:13)
[2020-03-20] MEDS: Ondansetron 4 MG/2 ML Vial IV (06:09)
[2020-03-20 06:31] LABS: Bedside Glucose 130 mg/dL (70-110)
[2020-03-20 07:19] LABS: Absolute Lymphocyte Count 0.38 X10^3/uL (0.83-4.51); Absolute Neutrophil Count 9.8 X10^3/uL (2.0-7.7); Basophil# 0.01 X10^3/uL; Basophil% 0.1 % (0-1); Hematocrit 37.5 % (40-54); Hemoglobin 11.1 g/dL (13.0-16.5); Lymphocyte # 0.38 X10^3/ul (4.0); Lymphocyte % 3.6 % (19-41); Mean Corp Hgb Conc 29.6 g/dL (32-36); Mean Corpuscular Hgb 23.1 pg (27.0-32.0); Mean Platelet Vol. 11.2 fl (6.2-12.0); Monocyte# 0.32 X10^3/uL; NRBC Flagged by Analyzer 0 % (0-5); Neutrophil # 9.79 X10^3/uL (2.7-7.7); Neutrophil % 92.8 % (47-70); POSITIVE DIFFERENTIAL YES; Platelet Count 252 K/mm3 (150-450); RBC Distribution Width CV 17.1 % (11.6-14.6); RBC Distribution Width SD 48.4 fl (35.1-43.9); Red Blood Count 4.81 M/mm3 (4.6-6.2); White Blood Count 10.6 K/mm3 (4.4-11.0)
[2020-03-20 07:23] LABS: Differential Indicated SCAN CRITERIA MET
[2020-03-20 07:48] LABS: Hypersegmented Neutrophils 1+
--- NOTE | 2020-03-20 07:53 | NURSING ---
PT PLACED ON O2 2L NC - WILL MONITOR
[2020-03-20 07:58] LABS: Anion Gap 8 (5-15); BUN 25 mg/dL (7-18); BUN/Creat Ratio 26.4 RATIO (10-20); Calcium,Total 9.3 mg/dL (8.5-10.1); Chloride 104 mmol/L (98-107); Creatinine, Serum 0.95 mg/dL (0.70-1.30); EST Glomerular Filtration Rate 84 mL/min (>60); Est Glom Filt Rate - Afr Amer 102 mL/min (>60); Estimated Creatinine Clearance 72.61 ml/min; Glucose 128 mg/dL (74-106); Sodium Level 138 mmol/L (136-145)
[2020-03-20] MEDS: Ensure Clear 120 ML Liquid PO (09:34)
[2020-03-20] MEDS: dexAMETHasone 4 MG Tablet PO ×2 (09:34→19:00)
[2020-03-20] MEDS: Baclofen 10 MG Tablet 5 MG PO ×2 (09:34→20:06)
[2020-03-20] MEDS: Montelukast 10 MG Tablet PO (09:35)
[2020-03-20] MEDS: Enoxaparin 40 MG/0.4 ML Syringe SC (09:35)
[2020-03-20] MEDS: LINAGLIPTIN 5 MG TABLET PO (09:35)
[2020-03-20] MEDS: Loratadine 10 MG Tablet PO (09:35)
[2020-03-20] MEDS: Escitalopram Oxalate 10 MG Tablet PO (09:35)
[2020-03-20 09:40] LABS: AST(SGOT) 72 U/L (15-37); Alanine Aminotransfer ALT/SGPT 28 U/L (16-61); Albumin, Serum 3.3 g/dL (3.2-5.0); Alkaline Phosphatase 206 U/L (45-117); Bilirubin, Direct 0.21 mg/dL (0.00-0.30); Globulin 3.9 g/dL (2.2-4.2); Protein, Total 7.2 g/dL (6.4-8.2)
[2020-03-20] MEDS: Albuterol 2.5 MG/3 ML VIAL.NEB. INHALATION (10:04)
[2020-03-20 11:41] LABS: Bedside Glucose 146 mg/dL (70-110)
--- NOTE | 2020-03-20 13:08 | PCM.PN.HOSP ---
Patient Problems: Active and Suspected Problems (Last Reviewed 03/19/20 @ 23:[address] Jerrell Chen MD) Generalized weakness (Acute) Metastatic lung cancer (metastasis from lung to other site) (Acute) Debility (Acute) Malignant cachexia (Acute) Reason for Visit: Follow-up on debility/metastatic lung CA Subjective: Patient was seen and examined. Denied any new complaints. He reportedly has been wheezing throughout the night. No other acute events. Objective: Physical exam: General: Alert, Oriented x3, Cooperative, not on oxygen HEENT: Atraumatic, PERRLA, EOMI, Normocephalic Neck: Supple, No JVD, Negative Carotid Bruits Lungs: Diminished, rhonchi present Cardiovascular: Regular rate, No murmurs Abdomen: Bowel Sounds Present, Soft, Non Tender Extremities: No edema, Capillary Refill Less than 3 Seconds Skin: No rashes, No breakdown Musculoskeletal: No Tenderness to Palpation of Joints or Extremities Neurological: Cranial nerves II-XII grossly intact Psych/Mental Status: Normal Affect, Appropriate Vitals/I&O's: Vital Signs Temp Pulse Resp BP Pulse Ox 97.8 F 100 18 98/52 L 92 03/20/20 07:51 03/20/20 10:04 03/20/20 10:04 03/20/20 07:51 03/20/20 10:04 Oxygen Flow Rate (L/min) 88 Oxygen Delivery Method Room Air Weight: 68.039 kg Body Mass Index (BMI) 22.8 Finger Stick Blood Glucose 341 Intake and Output for Last 24 Hours 03/18/20 03/19/20 03/20/20 23:59 23:59 23:59 Intake Total 220 / 220 Output Total 200 / 200 425 / 425 Balance -200 / -200 -205 / -205 Laboratory Results 03/19/20 16:00: WBC 6.9, RBC 4.87, Hgb 11.2 L, Hct 38.0 L, MCV 78.0 L, MCH 23.0 L, MCHC 29.5 L, RDW Std Deviation 48.3 H, RDW Coeff of Hebert 17.2 H, Plt Count 252, MPV 10.7, Immature Gran % (Auto) 0.300, Neut % (Auto) 92.5 H, Lymph % (Auto) 4.8 L, [place] % (Auto) 2.3, Eos % (Auto) 0.0, Baso % (Auto) 0.1, Absolute Neuts (auto) 6.4, Absolute Lymphs (auto) 0.33 L, Nucleated RBC % 0, Differential Comment SEE COMMENT, Platelet Estimate ADEQUATE, RBC Morphology N CHROM, Anisocytosis RARE, Microcytosis RARE 03/19/20 16:00: D-Dimer Quant (PE/DVT) 4.28 H* 03/19/20 16:00: Sodium 139, Potassium 3.8, Chloride 106, Carbon Dioxide 27.0, Anion Gap 6, BUN 23 H, Creatinine 0.88, Estim Creat Clear Calc 78.81, Est GFR (MDRD) Af Amer 112, Est GFR (MDRD) Non-Af 92, BUN/Creatinine Ratio 26.2 H, Glucose 127 H, Calcium 9.6 03/20/20 06:00: WBC 10.6, RBC 4.81, Hgb 11.1 L, Hct 37.5 L, MCV 78.0 L, MCH 23.1 L, MCHC 29.6 L, RDW Std Deviation 48.4 H, RDW Coeff of [place]bert 17.1 H, Plt Count 252, MPV 11.2, Immature Gran % (Auto) 0.500, Neut % (Auto) 92.8 H, Lymph % (Auto) 3.6 L, [place] % (Auto) 3.0, Eos % (Auto) 0.0, Baso % (Auto) 0.1, Absolute Neuts (auto) 9.8 H, Absolute Lymphs (auto) 0.38 L, Nucleated RBC % 0, Diff Path Review June foll, Hypersegmented Neuts 1+ H 03/20/20 06:00: Sodium 138, Potassium 4.0, Chloride 104, Carbon Dioxide 26.0, Anion Gap 8, BUN 25 H, Creatinine 0.95, Estim Creat Clear Calc 72.61, Est GFR (MDRD) Af Amer 102, Est GFR (MDRD) Non-Af 84, BUN/Creatinine Ratio 26.4 H, Glucose 128 H, Calcium 9.3 03/20/20 06:00: Total Bilirubin 0.80, Direct Bilirubin 0.21, AST 72 H, ALT 28, Alkaline Phosphatase 206 H, Total Protein 7.2, Albumin 3.3, Globulin 3.9 03/20/20 06:21: POC Glucose 130 H 03/20/20 11:31: POC Glucose 146 H Current Medications Acetaminophen (Acetaminophen 325 Mg Tablet) 650 mg PO Q6H PRN PRN PRN Reason: Pain Score 1-10/Temp > 100.7 F Last Admin: 03/20/20 06:08 Dose: 650 mg Documented by: Albuterol Sulfate (Albuterol 2.5 Mg/3 Ml Vial.Neb.) 2.5 mg INHALATION Q2H PRN PRN PRN Reason: sob/wheezing Last Admin: 03/20/20 10:04 Dose: 2.5 mg Documented by: Albuterol/Ipratropium (Ipratropium/Albuterol Sulfate 3 Ml Ampul.Neb) 3 ml INHALATION Q4HWA.[facility] Baclofen (Baclofen 10 Mg Tablet) 5 mg PO BID [facility] Last Admin: 03/20/20 09:34 Dose: 5 mg Documented by: Dexamethasone (Dexamethasone 4 Mg Tablet) 4 mg PO BIDCM [facility] Last Admin: 03/20/20 09:34 Dose: 4 mg Documented by: Enoxaparin Sodium (Enoxaparin 40 Mg/0.4 Ml Syringe) 40 mg SC DAILY [facility] Last Admin: 03/20/20 09:35 Dose: 40 mg Documented by: Escitalopram Oxalate (Escitalopram Oxalate 10 Mg Tablet) 10 mg PO DAILY [facility] Last Admin: 03/20/20 09:35 Dose: 10 mg Documented by: Fluticasone Propionate (Fluticasone 0.05% 1 [place] Nasal.Sry) 2 spray NASAL DAILY PRN PRN PRN Reason: ALLERGIES Linagliptin (Linagliptin 5 Mg Tablet) 5 mg PO DAILY [facility] Last Admin: 03/20/20 09:35 Dose: 5 mg Documented by: Loratadine (Loratadine 10 Mg Tablet) 10 mg PO DAILY [facility] Last Admin: 03/20/20 09:35 Dose: 10 mg Documented by: Melatonin (Melatonin 3 Mg Tablet) 3 mg PO QHS PRN PRN PRN Reason: INSOMNIA Last Admin: 03/19/20 21:57 Dose: 3 mg Documented by: Montelukast Sodium (Montelukast 10 Mg Tablet) 10 mg PO DAILY [facility] Last Admin: 03/20/20 09:35 Dose: 10 mg Documented by: Nutritional Formula (Lactose Free) (Ensure Clear 120 Ml Liquid) 120 ml PO TIDCM [facility] Last Admin: 03/20/20 09:34 Dose: 120 ml Documented by: Ondansetron HCl (Ondansetron 4 Mg/2 Ml Vial) 4 mg IV Q8H PRN PRN PRN Reason: NAUSEA/VOMITING Last Admin: 03/20/20 06:09 Dose: 4 mg Documented by: Oxycodone HCl (Oxycodone 5 Mg Tablet) 10 mg PO TID [facility] Last Admin: 03/20/20 06:08 Dose: 10 mg Documented by: Sodium Chloride (0.9% Saline Lock 10 Ml Syringe) 10 - 40 ml IV UD PRN PRN Reason: SALINE FLUSH Last Admin: 03/20/20 06:09 Dose: 10 ml Documented by: STROKE Vital Signs/Narrative: Vital Signs Pulse Resp Pulse Ox 03/20/20 10:04 100 18 92 03/20/20 10:03 92 Medical Necessity - Tobacco Use Smoking Status: Former smoker Tobacco Use: Cigarettes Assessment/Plan All Active Problems (Last Reviewed 03/19/20 @ 23:[address] Jerrell Chen MD) Generalized weakness (Acute) Metastatic lung cancer (metastasis from lung to other site) (Acute) Debility (Acute) Malignant cachexia (Acute) Chemotherapy-induced thrombocytopenia (Resolved) Encounter for chemotherapy management (Resolved) Encounter for education (Resolved) Hypophosphatemia (Resolved) Hypotension (Resolved) Neutropenia, drug-induced (Resolved) 1. Acute COPD exacerbation, stable, patient not on oxygen CTA of the chest showed no PE, showed emphysema with diffuse airspace opacification of the right upper and lower lobes Continue on oral dexamethasone, breathing treatments 2. Debility likely related to progressive metastatic lung CA PT/OT consulted 3. Type II DM, blood sugars fairly controlled, continue on sitagliptin, blood glucose checks with insulin sliding scale 4. Metastatic lung CA 5. DVT prophylaxis with Lovenox subcu Inpatient E&M: 54989 Subs Hosp L2
--- NOTE | 2020-03-20 14:55 | PCM.NTREPORT ---
Nutrition Therapy Report - History Nutrition Services has been consulted to:: Manage nutrient details of diet order Current diet / nutrition support order:: Regular w/ 120 ml ensure clear 3x/day - Anthropometric Measurements Height:: 5 ft 8 in Weight:: 68.039 kg Body Mass Index (BMI):: 22.8 - Relevant Labs Relevant Labs:: Hgb 11.1 g/dL (13.0-16.5) L 03/20/20 06:00 Hct 37.5 % (40-54) L 03/20/20 06:00 MCV 78.0 fL (80-94) L 03/20/20 06:00 MCH 23.1 pg (27.0-32.0) L 03/20/20 06:00 MCHC 29.6 g/dL (32-36) L 03/20/20 06:00 RDW Std Deviation 48.4 fl (35.1-43.9) H 03/20/20 06:00 RDW Coeff of [place] 17.1 % (11.6-14.6) H 03/20/20 06:00 Neut % (Auto) 92.8 % (47-70) H 03/20/20 06:00 Lymph % (Auto) 3.6 % (19-41) L 03/20/20 06:00 Absolute Neuts (auto) 9.8 X10^3/uL (2.0-7.7) H 03/20/20 06:00 Absolute Lymphs (auto) 0.38 X10^3/uL (0.83-4.51) L 03/20/20 06:00 Hypersegmented Neuts 1+ H 03/20/20 06:00 D-Dimer Quant (PE/DVT) 4.28 FEU/ug/m (0.27-0.49) H* 03/19/20 16:00 BUN 25 mg/dL (7-18) H 03/20/20 06:00 BUN/Creatinine Ratio 26.4 RATIO (10-20) H 03/20/20 06:00 Glucose 128 mg/dL (74-106) H 03/20/20 06:00 AST 72 U/L (15-37) H 03/20/20 06:00 Alkaline Phosphatase 206 U/L (45-117) H 03/20/20 06:00 - Assessment Food / Nutrition-Related History:: PO intake good - pt likes ensure clear - does not want additional ONS. UBW: 79.379 kg - wt loss of 14.3% x 2 mo d/t poor po intake. Has dentures, but doesn't wear them - does not want mech altered diet. States that he gets lightheaded frequently and can't stand up long enough to medina an egg. Not interested in info on MOW, etc at this time. [ End ] - Nutrition Diagnosis Problem / Etiology / Signs & Symptoms (PES):: Inadequate oral intake r/t phsyiological causes increasing nutrient needs d/t resp insuffiency and cancer aeb 14.3% wt loss x 2 mo, not able to stand up long enough to prepare meals, poor po intake and increased nutritional needs r/t resp dz and cancer. [ End ]. [ End ] Evidence of Malnutrition Exists:: Yes Severe PCM:: Chronic Illness - Nutrition Intervention Nutrition Prescription:: [id number] devaughn/day (RMRx 1.3). 65-75 gm pro/day (1 gm pro/kg). 2100 ml fluid /day (1 ml/devaughn). [ End ] - Food / Nutrient Delivery Interventions Summary of nutrition intervention:: Will continue liberal Regular diet w/ ONS d/t s/s of malnutrition. Can change diet consistency if indicated by pt d/t no dentures. [ End ] Nutrition education provided?: No - MNT Monitoring Further MNT monitoring and evaluation required?: Yes MNT Follow-up in:: 3-5 days - please call RD/LD at x [phone] if questions or concerns
[2020-03-20] MEDS: Ipratropium/Albuterol Sulfate 3 ML AMPUL.NEB INHALATION ×2 (15:23→19:45)
[2020-03-20 17:11] LABS: Bedside Glucose 109 mg/dL (70-110)
[2020-03-20 20:26] LABS: Bedside Glucose 147 mg/dL (70-110)
[2020-03-21] VITALS (9 sets, daily range): BP systolic 104–127; BP diastolic 57–64; PULSE 63–82; RESP 16–21; TEMP 36.5–37.1; O2SAT 90–93
[2020-03-21] MEDS: Acetaminophen 325 MG Tablet 650 MG PO ×4 (02:43→21:16)
[2020-03-21] MEDS: oxyCODONE 5 MG Tablet 10 MG PO ×3 (05:45→21:16)
[2020-03-21 06:25] LABS: Bedside Glucose 131 mg/dL (70-110)
[2020-03-21 07:28] LABS: Absolute Lymphocyte Count 0.44 X10^3/uL (0.83-4.51); Absolute Neutrophil Count 7.3 X10^3/uL (2.0-7.7); Basophil# 0.01 X10^3/uL; Basophil% 0.1 % (0-1); Hematocrit 33.2 % (40-54); Hemoglobin 10.1 g/dL (13.0-16.5); Lymphocyte # 0.44 X10^3/ul (4.0); Lymphocyte % 5.4 % (19-41); Mean Corp Hgb Conc 30.4 g/dL (32-36); Mean Corpuscular Hgb 23.7 pg (27.0-32.0); Mean Corpuscular Volume 77.8 fL (80-94); Mean Platelet Vol. 10.8 fl (6.2-12.0); Monocyte# 0.27 X10^3/uL; Monocyte% 3.3 % (0-10); NRBC Flagged by Analyzer 0 % (0-5); Neutrophil % 90.5 % (47-70); POSITIVE DIFFERENTIAL YES; Platelet Count 215 K/mm3 (150-450); RBC Distribution Width CV 17.1 % (11.6-14.6); RBC Distribution Width SD 48.2 fl (35.1-43.9); Red Blood Count 4.27 M/mm3 (4.6-6.2); White Blood Count 8.1 K/mm3 (4.4-11.0)
[2020-03-21 07:30] LABS: Differential Indicated SCAN CRITERIA MET
[2020-03-21] MEDS: Ipratropium/Albuterol Sulfate 3 ML AMPUL.NEB INHALATION ×4 (07:53→19:45)
[2020-03-21 07:55] LABS: ALB/GLOB Ratio 0.8 RATIO (0.9-2.4); AST(SGOT) 76 U/L (15-37); Alanine Aminotransfer ALT/SGPT 29 U/L (16-61); Alkaline Phosphatase 196 U/L (45-117); Anion Gap 8 (5-15); BUN 26 mg/dL (7-18); BUN/Creat Ratio 30.3 RATIO (10-20); Calcium,Total 8.8 mg/dL (8.5-10.1); Chloride 102 mmol/L (98-107); Creatinine, Serum 0.86 mg/dL (0.70-1.30); EST Glomerular Filtration Rate 94 mL/min (>60); Est Glom Filt Rate - Afr Amer 114 mL/min (>60); Estimated Creatinine Clearance 80.21 ml/min; Globulin 3.8 g/dL (2.2-4.2); Glucose 119 mg/dL (74-106); Potassium 3.9 mmol/L (3.5-5.1); Protein, Total 6.8 g/dL (6.4-8.2); Sodium Level 136 mmol/L (136-145)
[2020-03-21 08:17] LABS: Microcytosis 2+
[2020-03-21] MEDS: Baclofen 10 MG Tablet 5 MG PO ×2 (08:54→21:16)
[2020-03-21] MEDS: Loratadine 10 MG Tablet PO (08:55)
[2020-03-21] MEDS: Escitalopram Oxalate 10 MG Tablet PO (08:55)
[2020-03-21] MEDS: Montelukast 10 MG Tablet PO (08:55)
[2020-03-21] MEDS: Enoxaparin 40 MG/0.4 ML Syringe SC (08:56)
[2020-03-21] MEDS: LINAGLIPTIN 5 MG TABLET PO (08:56)
[2020-03-21] MEDS: dexAMETHasone 4 MG Tablet PO ×2 (08:56→16:11)
[2020-03-21] MEDS: oxyCODONE 5 MG Tablet PO (11:47)
[2020-03-21 11:55] LABS: Bedside Glucose 169 mg/dL (70-110)
--- NOTE | 2020-03-21 13:10 | PN_ITS ---
Patient Problems: Active and Suspected Problems (Last Reviewed 03/19/20 @ 23:[address] Jerrell Chen MD) Generalized weakness (Acute) Metastatic lung cancer (metastasis from lung to other site) (Acute) Debility (Acute) Malignant cachexia (Acute) Reason for Visit: Follow-up on debility/metastatic lung CA Subjective: Patient was seen and examined. Patient complains of some neck pain. Still has some wheezes but not on oxygen. Objective: Physical exam: General: Alert, Oriented x3, Cooperative, not on oxygen HEENT: Atraumatic, PERRLA, EOMI, Normocephalic Neck: Supple, No JVD, Negative Carotid Bruits Lungs: Diminished, rhonchi present Cardiovascular: Regular rate, No murmurs Abdomen: Bowel Sounds Present, Soft, Non Tender Extremities: No edema, Capillary Refill Less than 3 Seconds Skin: No rashes, No breakdown Musculoskeletal: No Tenderness to Palpation of Joints or Extremities Neurological: Cranial nerves II-XII grossly intact Psych/Mental Status: Normal Affect, Appropriate Vitals/I&O's: Vital Signs Temp Pulse Resp BP Pulse Ox 97.7 F L 70 18 104/64 93 03/21/20 08:38 03/21/20 10:50 03/21/20 10:50 03/21/20 08:38 03/21/20 08:38 Oxygen Flow Rate (L/min) 88 Oxygen Delivery Method Room Air Weight: 68.039 kg Body Mass Index (BMI) 22.8 Finger Stick Blood Glucose 341 Intake and Output for Last 24 Hours 03/19/20 03/20/20 03/21/20 23:59 23:59 23:59 Intake Total 580 / 880 1000 / 1000 Output Total 200 / 200 625 / 625 450 / 450 Balance -200 / -200 -45 / 255 550 / 550 Microbiology Past 72 Hours 03/20/20 13:50 Mucosa - Nasopharyngeal Respiratory Panel (PCR) - Final Laboratory Results 03/20/20 17:04: POC Glucose 109 03/20/20 20:21: POC Glucose 147 H 03/21/20 05:50: POC Glucose 131 H 03/21/20 05:52: WBC 8.1, RBC 4.27 L, Hgb 10.1 L, Hct 33.2 L, MCV 77.8 L, MCH 23.7 L, MCHC 30.4 L, RDW Std Deviation 48.2 H, RDW Coeff of Hebert 17.1 H, Plt Count 215, MPV 10.8, Immature Gran % (Auto) 0.700, Neut % (Auto) 90.5 H, Lymph % (Auto) 5.4 L, [place] % (Auto) 3.3, Eos % (Auto) 0.0, Baso % (Auto) 0.1, Absolute Neuts (auto) 7.3, Absolute Lymphs (auto) 0.44 L, Nucleated RBC % 0, Microcytosis 2+ 03/21/20 05:52: Sodium 136, Potassium 3.9, Chloride 102, Carbon Dioxide 26.0, Anion Gap 8, BUN 26 H, Creatinine 0.86, Estim Creat Clear Calc 80.21, Est GFR (MDRD) Af Amer 114, Est GFR (MDRD) Non-Af 94, BUN/Creatinine Ratio 30.3 H, Glucose 119 H, Calcium 8.8, Total Bilirubin 0.60, AST 76 H, ALT 29, Alkaline Phosphatase 196 H, Total Protein 6.8, Albumin 3.0 L, Globulin 3.8, Albumin/Globulin Ratio 0.8 L 03/21/20 11:45: POC Glucose 169 H Current Medications Acetaminophen (Acetaminophen 325 Mg Tablet) 650 mg PO Q6H PRN PRN PRN Reason: Pain Score 1-10/Temp > 100.7 F Last Admin: 03/21/20 09:01 Dose: 650 mg Documented by: Albuterol Sulfate (Albuterol 2.5 Mg/3 Ml Vial.Neb.) 2.5 mg INHALATION Q2H PRN PRN PRN Reason: sob/wheezing Last Admin: 03/20/20 10:04 Dose: 2.5 mg Documented by: Albuterol/Ipratropium (Ipratropium/Albuterol Sulfate 3 Ml Ampul.Neb) 3 ml INHALATION Q4HWA.RT [facility] Last Admin: 03/21/20 10:50 Dose: 3 ml Documented by: Baclofen (Baclofen 10 Mg Tablet) 5 mg PO BID [facility] Last Admin: 03/21/20 08:54 Dose: 5 mg Documented by: Dexamethasone ([facility] 4 Mg Tablet) [facility] Last Admin: 03/21/20 08:56 Dose: 4 mg Documented by: Enoxaparin Sodium (Enoxaparin 40 Mg/0.4 Ml Syringe) 40 mg SC DAILY [facility] Last Admin: 03/21/20 08:56 Dose: 40 mg Documented by: Escitalopram Oxalate (Escitalopram Oxalate 10 Mg Tablet) 10 mg PO DAILY [facility] Last Admin: 03/21/20 08:55 Dose: 10 mg Documented by: Fluticasone Propionate (Fluticasone 0.05% 1 [place] Nasal.Sry) 2 spray NASAL DAILY PRN PRN PRN Reason: ALLERGIES Linagliptin (Linagliptin 5 Mg Tablet) 5 mg PO DAILY [facility] Last Admin: 03/21/20 08:56 Dose: 5 mg Documented by: Loratadine (Loratadine 10 Mg Tablet) 10 mg PO DAILY [facility] Last Admin: 03/21/20 08:55 Dose: 10 mg Documented by: Melatonin (Melatonin 3 Mg Tablet) 3 mg PO QHS PRN PRN PRN Reason: INSOMNIA Last Admin: 03/19/20 21:57 Dose: 3 mg Documented by: Montelukast Sodium (Montelukast 10 Mg Tablet) 10 mg PO DAILY [facility] Last Admin: 03/21/20 08:55 Dose: 10 mg Documented by: Nutritional Formula (Lactose Free) (Ensure Clear 120 Ml Liquid) 120 ml PO TIDCM [facility] Last Admin: 03/21/20 11:47 Dose: Not Given Documented by: Ondansetron HCl (Ondansetron 4 Mg/2 Ml Vial) 4 mg IV Q8H PRN PRN PRN Reason: NAUSEA/VOMITING Last Admin: 03/20/20 06:09 Dose: 4 mg Documented by: Oxycodone HCl (Oxycodone 5 Mg Tablet) 10 mg PO TID [facility] Last Admin: 03/21/20 05:45 Dose: 10 mg Documented by: Sodium Chloride (0.9% Saline Lock 10 Ml Syringe) 10 - 40 ml IV UD PRN PRN Reason: SALINE FLUSH Last Admin: 03/20/20 20:13 Dose: 10 ml Documented by: STROKE Vital Signs/Narrative: Vital Signs Pulse Resp 03/21/20 10:50 70 18 Medical Necessity - Tobacco Use Smoking Status: Former smoker Tobacco Use: Cigarettes Assessment/Plan All Active Problems (Last Reviewed 03/19/20 @ 23:[address] Jerrell Chen MD) Generalized weakness (Acute) Metastatic lung cancer (metastasis from lung to other site) (Acute) Debility (Acute) Malignant cachexia (Acute) Chemotherapy-induced thrombocytopenia (Resolved) Encounter for chemotherapy management (Resolved) Encounter for education (Resolved) Hypophosphatemia (Resolved) Hypotension (Resolved) Neutropenia, drug-induced (Resolved) 1. Acute COPD exacerbation, stable, patient not on oxygen Respiratory panel is negative CTA of the chest showed no PE, showed emphysema with diffuse airspace opacification of the right upper and lower lobes Continue on oral dexamethasone, breathing treatments 2. Debility likely related to progressive metastatic lung CA PT/OT consulted, social work consulted for discharge planning 3. Type II DM, blood sugars fairly controlled, continue on sitagliptin, blood glucose checks with insulin sliding scale 4. Metastatic lung CA, patient is a candidate for palliative care 5. DVT prophylaxis with Lovenox subcu 6. Disposition: Pending discharge to long-term facility Inpatient E&M: 84773 Subs Hosp L2
[2020-03-21 16:36] LABS: Bedside Glucose 135 mg/dL (70-110)
[2020-03-21] MEDS: MELATONIN 3 MG TABLET PO (21:16)
[2020-03-22] VITALS (8 sets, daily range): BP systolic 102–137; BP diastolic 66–87; PULSE 69–89; RESP 16–18; TEMP 36.5–36.6; O2SAT 90–95
[2020-03-22] MEDS: Acetaminophen 325 MG Tablet 650 MG PO ×3 (03:21→15:15)
[2020-03-22] MEDS: oxyCODONE 5 MG Tablet 10 MG PO ×3 (05:08→15:16)
[2020-03-22 06:35] LABS: Bedside Glucose 126 mg/dL (70-110)
[2020-03-22] MEDS: Ipratropium/Albuterol Sulfate 3 ML AMPUL.NEB INHALATION ×3 (07:12→19:01)
[2020-03-22] MEDS: dexAMETHasone 4 MG Tablet PO ×2 (08:03→16:18)
[2020-03-22] MEDS: Loratadine 10 MG Tablet PO (09:16)
[2020-03-22] MEDS: Escitalopram Oxalate 10 MG Tablet PO (09:16)
[2020-03-22] MEDS: LINAGLIPTIN 5 MG TABLET PO (09:16)
[2020-03-22] MEDS: Baclofen 10 MG Tablet 5 MG PO (09:17)
[2020-03-22] MEDS: Montelukast 10 MG Tablet PO (09:17)
[2020-03-22] MEDS: Enoxaparin 40 MG/0.4 ML Syringe SC (09:20)
[2020-03-22 11:10] LABS: Bedside Glucose 133 mg/dL (70-110)
--- NOTE | 2020-03-22 11:19 | CASEMGMT ---
Social Work Assessment Referral Date: 03/19/2020 Date of Assessment: 03/22/2020 Reason for consult: Discharge planning, SNF placement Informant: MD SMITH updated that pt is agreeable to short term SNF placement. Pt is set to begin radiation treatment Sunday. Personal Status: SW met with pt to complete initial assessment. Pt is alert and orientated x3. Living Arrangements: Pt states he lives alone in a three story home. Pt states it has an elevator. Per notes, it appears pt lives in an apartment. Pt has no steps to enter the apartment. DME: Pt denied ADLs: Pt states he was previously independent with ALDs. Pt states he used to drive up until about a month ago. Pt states that he arranges transportation through his insurance for doctor's appointments. PCP: None Specialists: Pt states he see's Dr. Wise for oncology Supports: Pt states that he has a brother who lives in [facility]. Pt states his brother came to see him yesterday. SW asked pt about Tabatha on demographics sheet that is listed as caregiver. Pt states Tabatha is CM through his insurance. LUIS updated by RN that Tabatha CM through [facility] called in today and requests to be updated once pt is discharged. . Substance Abuse Hx: Pt states used to smoke cigarettes, quit about a year ago Mental Health Hx: Pt states little bit of anxiety and depression but not recently. Pt states he is unsure if he is on any medications for it. Pt denied any history and current suicidal thoughts/plans/ideations. HHC: Pt states he was supposed to begin care with [facility] this week SNF: Pt denied SW spoke with pt regarding Cancer diagnosis. Per chart, pt with history of lung cancer with mets to spine and brain. Pt states he first started chemotherapy last May. Pt states that he is handling diagnosis well. Pt states that Dr. Wise is going to meet with pt. Pt to start Radiation treatment Sunday. SW offered support to pt. SW spoke with pt regarding Palliative Care. Pt agreeable to Palliative Care Referral. SW spoke with pt regarding discharge plans as SNF is being recommended. Patient was provided a list of SNF providers including quality and resource use data and consistent with the patient?s preferred geographic region, medical needs, and insurance network. Pt states he has never heard of and SNF, would like to review list. LUIS informed pt that medically pt is ready for discharge, decision needs to be made for SNF. LUIS informed pt that this worker will stop back later today to get choices for SNF. Pt states understanding. LUIS updated physician on Palliative Care referral. LUIS placed a call to [facility] and spoke with Lisa. Lisa states she spoke with pt last week regarding Hospice vs. Palliative. LUIS informed Lisa that pt is to start Radiation treatment Sunday. LUIS also updated Lisa that plan is for pt to admit to SNF, will let [facility] know when and to which SNF discharges to. Lisa requests updated clinicals be faxed, clinicals faxed. Plan: SNF pending acceptance and pre-cert
--- NOTE | 2020-03-22 13:31 | CASEMGMT ---
Addendum entered by Kay Aguilar 03/22/20 15:28: SW received message from Krystal at [facility] stating they can accept pt without pre-cert. SW faxed pt's radiation schedule to [facility] so they can arrange transportation for pt. SW updated physician. SW in to speak with pt. SW updated pt that [facility] ([facility]) is able to accept pt, pt could discharge today. Pt states understanding, agreeable to [facility]. Original Note: Social Work Note SW back in to speak with pt. Pt states his head still hurts, hasn't been able to look at SNF list yet. SW explained importance of looking at list and making decision for SNF as medically pt is ready for discharge. SW reviewed list with pt. Pt prefers to stay in [place], agreeable to this worker trying [facility] (first choice) and [facility] (second choice). SW explained referral process. LUIS placed a call to Krystal at [facility] and provided referral. SW faxed referral. Plan: SNF pending acceptance and pre-cert Kay Aguilar CASINO FLOOR RUNNER, HARDWARE TECHNICIAN
[2020-03-22 13:38] LABS: Pathologist Review Reviewed
--- NOTE | 2020-03-22 14:40 | CHAPLAIN ---
Type of Pastoral Visit _x__ Initial Visit ___ Follow-up Visit ___ On-call Visit ___ General Patient Visit ___ Spiritual Assessment ___ Family Conference ___ Bereavement ___ Rapid Response ___ Code Blue ___ Other (describe below) Pastoral Care Referral From _x__ Patient ___ Family ___ Nurse ___ Physician ___ Check Viewer ___ [place] ___ Other (describe below) Sacrament/Intervention _x__ Active listening ___ Anointing ___ Restorationism ___ Bereavement ___ Communion ___ Yamilet exploration ___ ___ Life review _x__ Prayer ___ Reconciliation ___ Sacrament of Sick _x__ Supportive presence ___ Wedding ___ Other (describe below) Pastoral Comments patient has only depends on and no sheets; pt denies wanting any other clothing or sheets; pt states that he has been having pain; pt answers questions but is unsure of how to answer that; pt says that he has family but in [facility]; pt says he has cancer that has spread to his spine and brain; pt welcomes presence and prayer but does not initiate conversation further than answering questions; pt says he is not a part of any yamilet group
--- NOTE | 2020-03-22 15:34 | CASEMGMT ---
ANG MORGAN in to review TAMAYO form with patient. ANG MORGAN explained TAMAYO form to patient, patient voiced understanding and signed TAMAYO form. Signed form placed in chart and patient provided with copy. Patient had no further questions or concerns at this time.
--- NOTE | 2020-03-22 15:58 | PCM.TXEXTCAR ---
- Diet 03/19/20 20:31 Diet: Regular - General-no concentrated sweets Food consistency:: Regular Liquid Consistency:: Regular/Thin - Routine Orders/Code Status Code Status: Full Code - Wound(s) left knee Wound Type: Abrasion - Therapies Weight Bearing: Full weight bearing Physical Therapy: Eval and Treat Occupational Therapy: Eval and Treat - Problem/Diagnosis (1) Chronic pain due to malignant neoplastic disease Status: Chronic (2) Generalized weakness Status: Acute (3) Metastatic lung cancer (metastasis from lung to other site) Status: Chronic (4) Bone metastases Status: Chronic (5) Diabetes Status: Chronic (6) Lung cancer Status: Chronic Comment: large cell lung cancer (7) COPD (chronic obstructive pulmonary disease) Status: Chronic - Allergies/Procedures Done in Hospital Allergies/Adverse Reactions: Allergies ether Adverse Reaction (Severe, Verified 03/19/20 15:06) Nausea Procedures: None - Type of Care/Length of Stay Estimated LOS: Convalescent Care Less Than 30 days Type of Care Needed: Skilled Rehab Potential: Fair Prognosis: Fair - Additional Orders/Day of Discharge Additional Orders: Follow up with Dr. Wise on 03/24/20 for radiation. Pallative care consultation for patient H&P will serve as current which was dated: 03/19/20 Day of Discharge: 03/22/20 - Dietary and Speech Recommendations Dietitian Recommendations/Changes: Will continue liberal Regular diet w/ ONS d/t s/s of malnutrition. Can change diet consistency if indicated by pt d/t no dentures - Follow Up Care Primary Care Physician: Care Physician,No Primary [Primary Care Provider] -
--- NOTE | 2020-03-22 16:28 | CASEMGMT ---
Social Work Note Pt is able to discharge to [facility] today. LUIS placed a call to pt's CM Tabatha at [facility] and updated her pt will be discharged to [facility] today. Tabatha requests discharge summary be faxed to her at [phone]. SW also placed a call to [facility] and left message informing them pt will be discharged to [facility] today. LUIS will also fax discharge summary once completed. LUIS faxed completed discharge paperwork to [facility] including transfer to extended care facility, signed medication list, any scripts, PAS/RR, COVID test, and COVID screening tool. Original in SNF folder and copy on pt's chart. LUIS completed PAS/RR in HENS. RN states pt can transport via wheelchair van. LUIS accessed trip assist and earliest Physician's can transport pt is 6:30pm. Transportation form completed and placed on SNF folder and copy on pt's chart. LUIS placed a call to Krystal at [facility] and updated her on transportation time. RN and pt updated. LUIS asked pt if this worker could call his brother to update him and pt states he will call his brother. Plan: [facility] today with Physician's transporting pt via wheelchair van at 6:30pm Kay BANKS, ETHYLENE PLANT HELPER
--- NOTE | 2020-03-22 16:43 | NURSING ---
report given to Silas Florentino RN at [facility] -
[2020-03-22 18:20] LABS: Bedside Glucose 120 mg/dL (70-110)
--- NOTE | 2020-03-23 08:45 | CASEMGMT ---
Social Work Note SW faxed transfer summary to both [facility] and Tabatha CM as no discharge summary is available at this time. Kay Aguilar MEN'S LEATHER DRESS BELT MAKER, LEAN COACH
--- NOTE | 2020-03-23 17:12 | PCM.DC.SUM ---
Discharge Date and Diagnosis - Problem List Patient Problems: Active and Suspected Problems (Last Reviewed 03/19/20 @ 23:[address] Jerrell Chen MD) Generalized weakness (Acute) Debility (Acute) Malignant cachexia (Acute) Date of Admission: 03/19/20 Date of Discharge: 03/22/20 - Primary Discharge Diagnosis Acute Problems: Active Problems (Last Reviewed 03/19/20 @ 23:[address] 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 Jerrell Chen MD) Metastatic lung cancer (metastasis from lung to other site) (Chronic) Chronic pain due to malignant neoplastic disease (Chronic) Cough (Chronic) Bone metastases (Chronic) CRF (chronic renal failure) (Chronic) Lung nodule, multiple (Chronic) Diabetes (Chronic) Lung cancer (Chronic) large cell lung cancer Regional lymph node metastasis present (Chronic) Hypokalemia (Chronic) Secondary to antihypertensive treatment Hypertension (Chronic) COPD (chronic obstructive pulmonary disease) (Chronic) Asthma (Chronic) Seasonal allergic rhinitis (Chronic) Hospital Course and Treatment Operations: None, cholecystecomy Procedures: None Summary of Care Provided: The patient is a 69 year old M was seen in the emergency room at [facility] after being sent in due to a low pulse oximetry reading at home. Patient was having difficulty with ADLs at home due to metastatic large cell lung cancer. Evaluation in the emergency room noted the patient's pulse ox to be in the high 90s throughout his ER stay, patient did not feel he was able to take care of himself at home and the [facility] and seen by PT and OT, I also talked with radiation therapy and the patient's oncologist, it appeared that the patient was set up for radiation starting on 03/24/2020, patient agreed to go to an extended care facility for short-term rehab services. This examiner did not feel the patient an exacerbation of COPD during the patient's hospital stay. On 03/22/2020, patient was seen and examined: On examination he appeared cachectic and weak. Vital signs as documented. Skin warm and dry and without overt rashes. Neck without JVD, neck was supple, trachea midline, thyroid was normal. Lungs clear bilaterally, normal air movement was noted. Heart exam notable for regular rhythm, normal sounds and absence of murmurs, rubs or gallops. Abdomen unremarkable and without evidence of organomegaly, masses, or abdominal aortic enlargement. Bowel sounds are present, abdomen is not distended. Extremities nonedematous, no cyanosis was noted, no clubbing was noted. Neuro: Cranial nerves II through XII are grossly intact, no focal motor deficits were noted, sensation to light touch and pinprick intact, motor exam 5/5 throughout. Psych: Patient is alert and oriented x3, patient had a depressed affect On 03/22/2020, patient was transferred to a local extended care facility for skilled rehab services, he appeared medically stable on that date. He was to follow-up with radiation therapy on 03/24/2020 to begin palliative radiation treatment. Patient Problems: Active and Suspected Problems (Last Reviewed 03/19/20 @ 23:[address] eJrrell Chen MD) Generalized weakness (Acute) Debility (Acute) Malignant cachexia (Acute) - Physical Exam Vitals/I&O's: Vital Signs Temp Pulse Resp BP Pulse Ox 97.9 F 84 16 102/76 95 03/22/20 18:18 03/22/20 19:02 03/22/20 19:02 03/22/20 18:18 03/22/20 18:18 Oxygen Flow Rate (L/min) 88 Oxygen Delivery Method Room Air Weight: 68.039 kg Body Mass Index (BMI) 22.8 Finger Stick Blood Glucose 341 Intake and Output for Last 24 Hours 03/21/20 03/22/20 03/23/20 23:59 23:59 23:59 Intake Total 1600 / 1600 1100 / 1100 Output Total 1150 / 1350 725 / 725 Balance 450 / 250 375 / 375 Microbiology Past 72 Hours 03/20/20 13:50 Mucosa - Nasopharyngeal Respiratory Panel (PCR) - Final Laboratory Results 03/22/20 16:14: POC Glucose 120 H Home Medications: Medications to take at Discharge Albuterol Sulfate [Albuterol Sulfate HFA] 1 - 2 puff IH Q4H PRN PRN 07/23/19 Escitalopram Oxalate [Lexapro] 10 mg PO DAILY 07/23/19 Fluticasone 0.05% [Flonase Nasal [place]] 2 spray NASAL DAILY PRN PRN 07/23/19 Loratadine 10 mg PO DAILY 10/01/19 budesonide-formoterol HFA 160 mcg-4.5 mcg/actuation aerosol inhaler 2 puff INHALATION BID #10.2 g 01/22/20 Baclofen 5 mg PO BID 03/19/20 Dexamethasone [Decadron] 4 mg PO BID 03/19/20 Montelukast Sodium 10 mg PO DAILY 03/19/20 Sitagliptin Phosphate [Januvia] 50 mg PO DAILY 03/19/20 Acetaminophen [Tylenol Tablet] 650 mg PO Q6H PRN PRN tab 03/22/20 Enoxaparin [Lovenox] 40 mg SC DAILY syringe 03/22/20 Ensure Clear 120 ml PO TIDCM liquid 03/22/20 Ipratropium/Albuterol Sulfate [Duoneb] 3 ml INHALATION 4X/DAY #1 ampul.neb 03/22/20 Oxycodone CR [Oxycontin] 20 mg PO BID 7 Days #14 tab 03/22/20 Oxycodone [Oxyir] 10 - 15 mg PO Q6H PRN PRN 7 Days #30 tab 03/22/20 Following Prescriptions Were Given to Patient: Ipratropium/Albuterol Sulfate [Duoneb] 3 ml INHALATION 4X/DAY #1 ampul.neb Oxycodone CR [Oxycontin] 20 mg PO BID 7 Days #14 tab Prescription Printed Oxycodone [Oxyir] 10 - 15 mg PO Q6H PRN PRN 7 Days #30 tab PRN Reason: Pain Score 1-10 Prescription Printed Primary Care Physician: Care Physician,No Primary [Primary Care Provider] - Disposition: Correction facility Minutes spent on discharge:: 30 Patient Condition:: Stable Medical Necessity - Tobacco Use Smoking Status: Former smoker Tobacco Use: Cigarettes Meaningful Use Info Meaningful Use Diagnoses (Choose all that apply): None applicable OBSV E&M: 53992 Observation care discharge
== END 2020-03-22 19:40 | disposition skilled nursing facility (03) ==
LOC: ED 19:34 → MS3 20:07
PROVIDERS: Internal Medicine; Admitting Provider Hospitalist; Emergency Provider Emergency Medicine; Visit Provider Internal Medicine
DX: C34.90 Malignant neoplasm of unspecified part of unspecified bronchus or lung (principal); E43 Unspecified severe protein-calorie malnutrition; G89.3 Neoplasm related pain (acute) (chronic); J44.9 Chronic obstructive pulmonary disease, unspecified; E11.22 Type 2 diabetes mellitus with diabetic chronic kidney disease; I12.9 Hypertensive chronic kidney disease with stage 1 through stage 4 chronic kidney disease, or unspecified chronic kidney disease; C77.9 Secondary and unspecified malignant neoplasm of lymph node, unspecified; C79.51 Secondary malignant neoplasm of bone; N18.9 Chronic kidney disease, unspecified; F32.9 Major depressive disorder, single episode, unspecified; Z87.891 Personal history of nicotine dependence; Z79.899 Other long term (current) drug therapy; Z79.82 Long term (current) use of aspirin; Z68.22 Body mass index [BMI] 22.0-22.9, adult
CPT/HCPCS: 36415; 36591; 71275; 80048; 80053; 80076; 82962; 85025; 85379; 87633; 87635; 94640; 96372; 96374; 96376; 97110; 97162; 97166; 97530; 97535; 97802; 99218; 99285; Q9967; A4216; G0378; J2405; U0002

== ENCOUNTER 2020-03-29 21:18 | Emergency (ER) | payer MEDICARE, MEDICAID, SELFPAY ==
[2019-09-10 14:14] VITALS: BMI 26.7
[2020-03-20 15:00] VITALS: BMI 22.8
[2020-03-29 21:19] VITALS: BP 151/78; PULSE 95; RESP 16; TEMP 36.7; O2SAT 93; BMI 21.2
[2020-03-29] MEDS: oxyCODONE 5 MG Tablet 10 MG PO (21:36)
--- NOTE | 2020-03-29 22:01 | ED.RN ---
PER PHONE CALL TO NURSE AT [facility], PT LAST RECEIVED PRN PAIN MEDS AT 0430 03/29/20, OTHER THAN PARTIAL DOSE GIVEN AT 2100 AFTER EMS CALLED TO TRANSPORT PT TO HOSPITAL. PT HAS 10MG OXYCODONE ORDERED Q6PRN FOR PAIN 1-5, OXYCODONE 15MG Q6HRS PRN FOR PAIN 5-10. NURSE ACKNOWLEDGED PT WAS ONLY GIVEN PARTIAL DOSE OF 5 MG AT 2100 INSTEAD OF ORDERED DOSE OF 10-15 MG OXYCODONE.
[2020-03-29] MEDS: Albuterol 2.5 MG/3 ML VIAL.NEB. INHALATION (22:16)
[2020-03-29 22:17] VITALS: PULSE 95; RESP 16
--- NOTE | 2020-03-29 22:45 | ED.VISSUMM ---
- ER Visit Summary Date of Service: 03/29/20 Chief Complaint: Back pain History of Present Illness: The patient is a [address] Brown. He does not know the name of his oncologist. He has a history of lung cancer with metastases to his spine. He had a radiation treatment today and states pain is worse. States that the sharp pain that is 10 of 10 severity. Is worsened by movement and taken oxycodone without relief. He denies any symptoms of cauda equina syndrome. He has no groin numbness. No problems with his bowels or his bladder. No numbness or weakness in his legs. No radiation to his legs. Physical Examination: Vitals: Stable. Afebrile. General: Well-developed, but cachectic Head: Normocephalic atraumatic. Neck: Supple, no lymphadenopathy. No JVD. Nontender. Cardiovascular: Regular rate and rhythm. No murmurs. Respiratory: No respiratory distress. Clear to auscultation bilaterally. Abdominal: Soft, nontender, nondistended, normal bowel sounds. No guarding, rebound, or peritoneal signs. Back: Mild tenderness palpation over the entire thoracic spine. Severe tenderness palpation over approximately L1. Moderate tense palpation of the remainder of his lumbar spine. Extremities: Nontender, no edema. Skin: Normal color, no rash. Neurologic: Alert and oriented ?3. Cranial nerves II through XII are intact. Normal strength and sensation. Psych: Normal affect. Emergency Department Course and Treatment: I reviewed that the MRIs the patient had on March 10 which shows diffuse mets to his cervical, thoracic, and lumbar spine. He also had an L2 compression fracture. This was treated with kyphoplasty. I reviewed the dosing of his pain medications by the [facility]. He is supposed to get OxyContin 20 mg twice daily. The last dose of this was 11 hours ago. He is also written for 10 mg of oxycodone every 6 and 15 mg of oxycodone every 6. The last dose of this was at 430 this morning. They gave him 1 5 mg oxycodone at 9 PM. Patient was given his 10 PM dose of OxyContin. He was also given 10 more milligrams of oxycodone. He is now resting comfortably. Treatment Plan: The patient was discussed with Dr. Brown who does not want to make changes to his pain medications at this time. He asked that I speak with the [facility] and relayed to them that the patient needs to be kept comfortable and to give the doses as prescribed. Return to the emergency department for any worsening symptoms. Disposition: To home in improved and stable condition. Impression: 1. Back pain with bony metastases getting radiation treatment. 2. Lung cancer with metastases. This note was generated with [employer] software. It may contain incorrect words, spelling, and punctuation that were not noted in review of the chart prior to signing ED Disposition - Plan for ED Patient: Instructions: ED Back Pain (Acute or Chronic) Referrals: Sigifredo Brown MD [STAFF PHYSICIAN] - As Needed
--- NOTE | 2020-03-29 23:00 | ED.RN ---
CARMELA LEY MADE AWARE THAT PT IS RETURNING BACK TO FACILITY.
[2020-03-29 23:19] VITALS: BP 118/70; PULSE 81; RESP 18; O2SAT 93
[2020-03-30 01:05] VITALS: RESP 10
[2020-03-30] MEDS: HYDROmorphone 1 MG/ML Syringe IM (02:28)
--- NOTE | 2020-03-30 02:31 | ED.RN ---
PT WENT FROM [facility]ING COMFORTABLY WITH EYES CLOSED TO WRITHING IN PAIN AWAKE AND CALLING FOR PAIN MEDS. NEW ORDER OBTAINED AND PT [facility]
== END 2020-03-30 02:32 | disposition home or self-care (01) ==
LOC: ED 22:01
PROVIDERS: Emergency Provider Emergency Medicine
DX: C79.51 Secondary malignant neoplasm of bone (principal); C34.90 Malignant neoplasm of unspecified part of unspecified bronchus or lung; J44.9 Chronic obstructive pulmonary disease, unspecified; I12.9 Hypertensive chronic kidney disease with stage 1 through stage 4 chronic kidney disease, or unspecified chronic kidney disease; N18.9 Chronic kidney disease, unspecified; Z79.899 Other long term (current) drug therapy
CPT/HCPCS: 94640; 96372; 99285